=== PATIENT | male | born 1955 | race Caucasian/White ===

== ENCOUNTER → 2016-09-10 | Outpatient (CLI) | payer MEDICARE ==
[~2016-09-10] MED LIST: ACETAMINOPHEN TOP; ADVI200T PO; ALLE180T33 PO; BENA25CA2 PO; CLON1TAB; COLA100C2; COLA100C2 OR; DYMI137S; FLON0.054; GEMF600T PO; HYDR25TA6 OR; LEVOTAB10 PO; LIDO5DIS EX; METH10TA2 PO; MONT10TA2 PO; NEUR600T OR; OXYC10TA12; OXYC15TA50; OXYC30TA84 PO; OXYC40TA12 PO; OXYC40TA19; OXYC40TA19 OR; OXYC5CAP4; OXYC60TA8 PO; OXYC80TA14; POTA20TA2 OR; TOPR100T OR; VICO5TAB; VICO5TAB OR; VICODINES TAB OR; ZYRT10CA PO; allergy shot; azelastine
== END ==
LOC: M PAIN 11:00
PROVIDERS: ATTEND Anesthesiology
DX: Z09 Encounter for follow-up examination after completed treatment for conditions other than malignant neoplasm (principal); G89.29 Other chronic pain; M47.816 Spondylosis without myelopathy or radiculopathy, lumbar region; M47.817 Spondylosis without myelopathy or radiculopathy, lumbosacral region; I10 Essential (primary) hypertension; E78.5 Hyperlipidemia, unspecified; J32.9 Chronic sinusitis, unspecified; Z88.8 Allergy status to other drugs, medicaments and biological substances; J30.89 Other allergic rhinitis; Z79.891 Long term (current) use of opiate analgesic; Z79.899 Other long term (current) drug therapy; F11.20 Opioid dependence, uncomplicated; Z87.891 Personal history of nicotine dependence

== ENCOUNTER → 2016-10-17 | Outpatient (CLI) | payer OTHER, MEDICARE ==
[~2016-10-17] MED LIST changes: -OXYC40TA12 PO; +OXYC40TA13 PO
--- NOTE | 2016-10-26 23:48 | ECWPNPC ---
PATIENT NAME: SUNI DONATO : 1955 GENDER: MALE VISIT DATE: 10/17/2016 DISCHARGE DATE: 10/17/16 1619 VISIT LOCKED DATE TIME: PHYSICIAN: DAIN BECK RESOURCE: DAIN BECK REASON FOR APPOINTMENT 1. BACK PAIN W/C HISTORY OF PRESENT ILLNESS HISTORY OF PRESENT ILLNESS: PAIN THE PATIENT DESCRIBES THE PAIN... 61 YEAR OLD MALE PATIENT WITH HISTORY OF CHRONIC LOW BACK PAIN. PATIENT DESCRIBES THE PAIN ACHING, BURNING, SHARP, STABBING, AND HAVING IT ALL THE TIME WITH A PAIN SCORE OF 8/10. 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 PATIENT WENT TO THE ED THAT DAY AND WAS TOLD HE HAD JUST PULLED MUSCLES IN HIS BACK, PATIENT RETURNED TO WORK FOR TWO YEARS AND THEN HAD A BACK SURGERY. CURRENTLY THE PATIENT IS USING HYDROCODONE, METHADONE AND GABAPENTIN TO AID IN PAIN RELIEF, PATIENT REPORTS THAT THE MEDICATION KEEPS HIM FUNCTIONAL AND MOBILE. MR. DONATO STATES THAT ANY ACTIVITY INCREASES THE PAIN IN HIS LOWER BACK INCLUDING WALKING AND THAT MEDICATION HELPS TO RELIEVE THE PAIN. MR. DONATO HAS RECEIVED INJECTIONS BEFORE AND REPORTS THEM NOT AIDING IN PAIN RELIEF. PATIENT DENIES UNEXPLAINABLE WEIGHT LOSS, FEVER, CHILLS, NEW CHANGES ON HIS URINARY OR BOWEL CONTROL. FALL RISK SCREENING: SCREENING :NO FALLS IN THE PAST YEAR CURRENT MEDICATIONS TAKING GEMFIBROZIL 600 MG TABLET 1 TABLET ORALLY ONCE A DAY TAKING LEVOCETIRIZINE DIHYDROCHLORIDE 5 MG TABLET 1 TABLET IN THE EVENING ORALLY EVERY 4 HOURS NEEDED TAKING GABAPENTIN 600 MG TABLET 1 CAPSULE ORALLY THREE TIMES A DAY TAKING DOCUSATE SODIUM 100 MG CAPSULE 1 CAPSULE NEEDED ORALLY 2TAB AM AND PM TAKING HYDROCHLOROTHIAZIDE 25 MG TABLET 1 TABLET ORALLY ONCE A DAY TAKING METOPROLOL TARTRATE 50 MG TABLET 1 TABLET ORALLY TWICE A DAY TAKING POTASSIUM M 20 1 TAB ORAL DAILY TAKING HYDROCODONE-ACETAMINOPHEN 10-325 MG TABLET 1 ORALLY Q6H PRN MDD4 TAKING METHADONE HCL 10 MG TABLET 2 TABLETS ORALLY EVERY 6 HOURS, MDD=8 MEDICATION LIST REVIEWED AND RECONCILED WITH THE PATIENT PAST MEDICAL HISTORY HYPERTENSION HYPERLIPIDEMIA LOW BACK PAIN RADICULAR TO LEFT LEG SMOKING CHRONIC SINUSITIS ALLERGIES LIPITOR: WEAKNESS, SYNCOPE: SIDE EFFECTS DUST MITES AND RAGWEED: SINUS CONGESTION: ALLERGY SURGICAL HISTORY LUMBAR DISCECTOMY 1997 FAMILY HISTORY NO FAMILY HISTORY DOCUMENTED. SOCIAL HISTORY GENERAL: PAIN CLINIC PFS, CLERGY, PUBLIC HEALTH REFERRALS CLERGY REFERRAL NEEDED?NO WAS THE PROVIDER NOTIFIED OF ANY PERTINENT INFO?NO PFS REFERRAL NEEDED?NO PUBLIC HEALTH REFERRAL NEEDED?NO PATIENT: ____. HOSPITALIZATION/MAJOR DIAGNOSTIC PROCEDURE DISCECTOMY 1997 REVIEW OF SYSTEMS CONSTITUTIONAL: ANY CHANGE IN YOUR MEDICAL CONDITION? NO . CHILLS NO . FEVER NO . INFECTION: DO YOU HAVE NEW INFECTIONS? NO . DO YOU HAVE HISTORY OF MRSA? NO . MUSCULOSKELETAL: ANY NEW PATTERNS OF PAIN OR NUMBNESS? NO . GASTROENTEROLOGY: ANY NEW CHANGE IN BOWEL CONTROL? NO . GENITOURINARY: ANY NEW CHANGE IN BLADDER CONTROL? NO . IS THERE A CHANCE YOU COULD BE ? NO . HEMATOLOGY/LYMPH: DO YOU TAKE ANY BLOOD THINNERS? (FOR EXAMPLE- COUMADIN, PLAVIX, AGGRENOX, PLATEL, PRADAXA, OR XARELTO) NO . WHEN WAS YOUR LAST DOSE? DATE: TIME: . NEUROLOGY: HAVE YOU FALLEN IN THE PAST 6 MONTHS? NO . ANY NEW EXTREMITY NUMBNESS OR WEAKNESS? NO . CARDIOLOGY: DO YOU HAVE A PACEMAKER OR DEFIBRILLATOR? NO . RESPIRATORY: HAVE YOU BEEN SICK IN THE PAST WEEK? NO . FEVER NO . FLU LIKE SYMPTOMS? NO . COUGH NO . INTEGUMENTARY: DO YOU HAVE ANY RASHES OR OPEN SORES? NO . ALLERGIC/IMMUNO: ARE YOU ALLERGIC TO SHELLFISH OR IV DYE? NO . ANY NEW ALLERGIES? NO . PSYCHIATRIC: DO YOU HAVE THOUGHTS OF HURTING YOURSELF OR SOMEONE ELSE? NO . ARE YOU ABUSED, NEGLECTED, OR IN AN UNSAFE ENVIRONMENT? NO . ENDOCRINOLOGY: ARE YOU DIABETIC? NO . OTHER: DO YOU NEED ANY PRESCRIPTIONS? NO . IF YES, PLEASE LIST: ____ . ANY NEW PROBLEMS WITH YOUR MEDICATIONS? NO . WHEN DID YOU LAST EAT? ____ . WHEN DID YOU LAST DRINK? ____ . WHAT DID YOU LAST DRINK? ____ . NAME OF PERSON DRIVING YOU HOME? ____ . DO YOU HAVE ANY OTHER QUESTIONS OR CONCERNS NO . REVIEWED BY: PROVIDER: DAIN BECK MD . VITAL SIGNS WT 130 LBS, HT 64.5 IN, BMI 21.97 INDEX, BP 166/67 MM HG, HR 71 /MIN, RR 16 /MIN, TEMP 98.2 F, OXYGEN SAT % 98, SAFE IN ENV? (Y/N) YES, NA INITIALS [id number], REVIEWED BY: MELINA. EXAMINATION : PATIENT IS ALERT O X 3 AND COOPERATIVE. TENDERNESS IN THE LOWER BACK AND PARASPINAL MUSCLE GROUP. BANDS OF TISSUE, RESTRICTION OF MOVEMENT AND PRESENCE OF TRIGGER POINT IN THE LOWER BACK AREA. PATIENT WALKS IN FLEXED POSITION. PATIENT ABLE TO FLEX THE BACK 85 DEGREES UNABLE TO EXTEND DUE TO THE PAIN. LIMPING FROM LEFT LEG. LEFT LEG IS WEAKER THEN THE RIGHT AT EXTENSION AND FLEXION. MRI DONE ON 05/03/09 OF THE LUMBAR SPINE SHOWS DEGENERATIVE DISC DISEASE AT L4-L5 AND L5-S1, ARTHRITIS, CANAL STENOSIS AND A DISC BULGE AT L5-S1. 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 DONATO'S PAIN MANAGEMENT CASE. AT THIS TIME THE PATIENT WILL START TO REDUCE HIS INTAKE OF METHADONE. PATIENT WILL LIMIT HIMSELF TO 6 TABLETS A DAY INSTEAD OF 8. PATIENT WILL CONTINUE WITH THE SAME ABOUT OF HYDROCODONE DAILY. PATIENT USES BOTH MEDICATIONS FOR SOMATIC PAIN. MR. DONATO DENIES ABUSE OF ANY MEDICATION, DENIES USE OF ILLEGAL SUBSTANCES, AND STATES THAT HE IS ONLY USING THE MEDICATION FOR PAIN MANAGEMENT. URINE TOXICOLOGY REPORT DONE ON 03/13/16 SHOWS CONSISTENT RESULTS. PATIENT WILL PERFORM ANOTHER URINE TOXICOLOGY SAMPLE TODAY. PATIENT REPORTS HAVING INJECTIONS DONE IN THE PAST WITH LITTLE TO NO RELIEF. I WOULD LIKE TO CHECK IS THE PATIENT HAS EVER HAD A RADIOFREQUENCY DONE BEFORE. PATIENT IS A GOOD CANDIDATE AND IS AWARE THAT HE WILL NEED TO HAVE 2 DIAGNOSTIC TESTS PRIOR TO THE RADIOFREQUENCY. PATIENT WILL RETURN TO THE CLINIC IN 6 WEEKS TO FURTHER DISCUSS HIS CASE. INSTRUCTIONS WERE GIVEN, QUESTIONS WERE ANSWERED, PATIENT REPORTS UNDERSTANDING AND AGREES WITH THE PLAN. I, MARGARET MÉNDEZ, DOCUMENTED THE ABOVE INFORMATION ACTING A SCRIBE FOR DR. BECK. I HAVE REVIEWED THE ABOVE DOCUMENT, WRITTEN BY MARGARET SANCHEZ AND I VERIFY THAT IT IS ACCURATE. PROCEDURES PN WORKMANS' COMP OPINION IN YOUR OPINION, WAS THE INCIDENT THAT THE PATIENT DESCRIBED THE COMPETENT MEDICAL CAUSE OF THIS INJURY/ILLNESS? YES ARE THE PATIENT'S COMPLAINTS CONSISTENT WITH HIS/HER HISTORY OF THE INJURY/ILLNESS? YES IS THE PATIENT'S HISTORY OF THE INJURY/ILLNESS CONSISTENT WITH YOUR OBJECTIVE FINDING? YES WHAT IS THE PERCENTAGE OF TEMPORARY IMPAIRMENT? MODERATE TO MARKED = 66.7% IS THE PATIENT WORKING? NO DOCTOR ON SITE: DAIN SHEETS MD PROCEDURE CODES FA211 ESTABILISHED PATIENT [facility] FACILITY CHARGE G8427 DOC MEDS VERIFIED W/PT OR RE G8730 PAIN ASSESS POS TOOL F/U PLAN DOC DISPOSITION & COMMUNICATION FOLLOW UP 6 WEEKS ELECTRONICALLY SIGNED BY DAIN BECK MD ON 10/26/2016 AT 05:24 PM EDT DISCLAIMER : THIS IS A VISIT SUMMARY EXTRACTED FROM THE [employer] CHART. IT IS NOT A COPY OF THE [employer] PROGRESS NOTE. ALISON
== END | disposition home or self-care (01) ==
LOC: M PAIN 14:40
PROVIDERS: ATTEND Anesthesiology
DX: G89.29 Other chronic pain (principal); M96.1 Postlaminectomy syndrome, not elsewhere classified; M47.816 Spondylosis without myelopathy or radiculopathy, lumbar region; M47.817 Spondylosis without myelopathy or radiculopathy, lumbosacral region; I10 Essential (primary) hypertension; E11.9 Type 2 diabetes mellitus without complications; M79.7 Fibromyalgia; D64.9 Anemia, unspecified; M19.90 Unspecified osteoarthritis, unspecified site; L93.0 Discoid lupus erythematosus; M54.2 Cervicalgia; N30.10 Interstitial cystitis (chronic) without hematuria; Z79.899 Other long term (current) drug therapy; Z79.84 Long term (current) use of oral hypoglycemic drugs; Z88.1 Allergy status to other antibiotic agents; Z88.8 Allergy status to other drugs, medicaments and biological substances; L23.1 Allergic contact dermatitis due to adhesives; Z91.040 Latex allergy status

== ENCOUNTER → 2016-12-18 | Outpatient (CLI) | payer OTHER, MEDICARE ==
--- NOTE | 2016-12-30 02:47 | ECWPNPC ---
PATIENT NAME: SUNI DONATO : 1955 GENDER: MALE VISIT DATE: 12/18/2016 DISCHARGE DATE: 12/18/16 1417 VISIT LOCKED DATE TIME: PHYSICIAN: DAIN BECK RESOURCE: DAIN BECK REASON FOR APPOINTMENT 1. MEDS W/C HISTORY OF PRESENT ILLNESS HISTORY OF PRESENT ILLNESS: PAIN THE PATIENT DESCRIBES THE PAIN... 61 YEAR OLD MALE PATIENT WITH HISTORY OF CHRONIC LOW BACK PAIN. PATIENT DESCRIBES THE PAIN ACHING, BURNING, SHARP, STABBING, AND HAVING IT ALL THE TIME WITH A PAIN SCORE OF 6/10 ON TODAY'S VISIT. 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 PATIENT WENT TO THE ED THAT DAY AND WAS TOLD HE HAD JUST PULLED MUSCLES IN HIS BACK, PATIENT RETURNED TO WORK FOR TWO YEARS AND THEN HAD BACK SURGERY. PATIENT REPORTS OF TRYING PHYSICAL THERAPY IN THE PAST AND IT DID NOT WORK TO RELIEVE HIS PAIN. PATIENT STATES THAT HE HAS REDUCED HIS METHADONE INTAKE, IT HAS BEEN DIFFICULT THE PAIN RETURNED BUT HE IS HANDLING IT AT THIS TIME. THE PATIENT IS CURRENT TAKING HYDROCODONE, METHADONE AND GABAPENTIN TO AID IN PAIN RELIEF, PATIENT REPORTS THAT THE MEDICATION KEEPS HIM FUNCTIONAL AND MOBILE. MR. DONATO STATES THAT ANY ACTIVITY INCREASES THE PAIN IN HIS LOWER BACK INCLUDING WALKING AND THAT MEDICATION HELPS TO RELIEVE THE PAIN. MR. DONATO HAS RECEIVED INJECTIONS BEFORE AND REPORTS THEM NOT AIDING IN PAIN RELIEF. PATIENT EXPRESSES AT THIS TIME HE IS NOT INTERESTED IN A SPINAL COLUMN STIMULATOR. PATIENT REPORTS OF RADIATING PAIN TO THE FRONT OF HIS LEFT LEG STOPPING ABOVE THE LEFT KNEE. PATIENT DENIES UNEXPLAINABLE WEIGHT LOSS, FEVER, CHILLS, NEW CHANGES ON HIS URINARY OR BOWEL CONTROL. FALL RISK SCREENING: SCREENING :NO FALLS IN THE PAST YEAR CURRENT MEDICATIONS TAKING LEVOCETIRIZINE DIHYDROCHLORIDE 5 MG TABLET 1 TABLET IN THE EVENING ORALLY EVERY 4 HOURS NEEDED TAKING GABAPENTIN 600 MG TABLET 1 CAPSULE ORALLY THREE TIMES A DAY TAKING DOCUSATE SODIUM 100 MG CAPSULE 1 CAPSULE NEEDED ORALLY 2TAB AM AND PM TAKING POTASSIUM M 20 1 TAB ORAL DAILY TAKING METHADONE HCL 10 MG TABLET 2 TABLETS ORALLY THREE TIMES DAILY FOR PAIN MDD6 TAKING HYDROCODONE-ACETAMINOPHEN 10-325 MG TABLET 1 ORALLY Q6H PRN MDD4 TAKING METOPROLOL TARTRATE 50 MG TABLET 1 TABLET ORALLY TWICE A DAY TAKING HYDROCHLOROTHIAZIDE 25 MG TABLET 1 TABLET ORALLY ONCE A DAY TAKING GEMFIBROZIL 600 MG TABLET 1 TABLET ORALLY ONCE A DAY NOT-TAKING KLOR-CON M20 20 MEQ TABLET EXTENDED RELEASE 1 TABLET ORALLY ONCE A DAY MEDICATION LIST REVIEWED AND RECONCILED WITH THE PATIENT PAST MEDICAL HISTORY HYPERTENSION HYPERLIPIDEMIA LOW BACK PAIN RADICULAR TO LEFT LEG SMOKING CHRONIC SINUSITIS ALLERGIES LIPITOR: WEAKNESS, SYNCOPE: SIDE EFFECTS DUST MITES AND RAGWEED: SINUS CONGESTION: ALLERGY SURGICAL HISTORY LUMBAR DISCECTOMY 1998 FAMILY HISTORY NO FAMILY HISTORY DOCUMENTED. SOCIAL HISTORY GENERAL: PAIN CLINIC PFS, CLERGY, PUBLIC HEALTH REFERRALS CLERGY REFERRAL NEEDED?NO WAS THE PROVIDER NOTIFIED OF ANY PERTINENT INFO?NO PFS REFERRAL NEEDED?NO PUBLIC HEALTH REFERRAL NEEDED?NO PATIENT: ____. HOSPITALIZATION/MAJOR DIAGNOSTIC PROCEDURE DISCECTOMY 1997 REVIEW OF SYSTEMS CONSTITUTIONAL: ANY CHANGE IN YOUR MEDICAL CONDITION? NO . CHILLS NO . FEVER NO . INFECTION: DO YOU HAVE NEW INFECTIONS? NO . DO YOU HAVE HISTORY OF MRSA? NO . MUSCULOSKELETAL: ANY NEW PATTERNS OF PAIN OR NUMBNESS? NO . GASTROENTEROLOGY: ANY NEW CHANGE IN BOWEL CONTROL? NO . GENITOURINARY: ANY NEW CHANGE IN BLADDER CONTROL? NO . IS THERE A CHANCE YOU COULD BE ? NO . HEMATOLOGY/LYMPH: DO YOU TAKE ANY BLOOD THINNERS? (FOR EXAMPLE- COUMADIN, PLAVIX, AGGRENOX, PLATEL, PRADAXA, OR XARELTO) NO . WHEN WAS YOUR LAST DOSE? DATE: TIME: . NEUROLOGY: HAVE YOU FALLEN IN THE PAST 6 MONTHS? NO . ANY NEW EXTREMITY NUMBNESS OR WEAKNESS? NO . CARDIOLOGY: DO YOU HAVE A PACEMAKER OR DEFIBRILLATOR? NO . RESPIRATORY: HAVE YOU BEEN SICK IN THE PAST WEEK? NO . FEVER NO . FLU LIKE SYMPTOMS? NO . COUGH NO . INTEGUMENTARY: DO YOU HAVE ANY RASHES OR OPEN SORES? NO . ALLERGIC/IMMUNO: ARE YOU ALLERGIC TO SHELLFISH OR IV DYE? NO . ANY NEW ALLERGIES? NO . PSYCHIATRIC: DO YOU HAVE THOUGHTS OF HURTING YOURSELF OR SOMEONE ELSE? NO . ARE YOU ABUSED, NEGLECTED, OR IN AN UNSAFE ENVIRONMENT? NO . ENDOCRINOLOGY: ARE YOU DIABETIC? NO . OTHER: DO YOU NEED ANY PRESCRIPTIONS? NO . IF YES, PLEASE LIST: ____ . ANY NEW PROBLEMS WITH YOUR MEDICATIONS? NO . WHEN DID YOU LAST EAT? ____ . WHEN DID YOU LAST DRINK? ____ . WHAT DID YOU LAST DRINK? ____ . NAME OF PERSON DRIVING YOU HOME? ____ . DO YOU HAVE ANY OTHER QUESTIONS OR CONCERNS NO . REVIEWED BY: PROVIDER: DAIN BECK MD . VITAL SIGNS WT 142.6 LBS, HT 64.5 IN, BMI 24.10 INDEX, BP 152/75 MM HG, HR 65 /MIN, RR 16 /MIN, TEMP 98.1 F, OXYGEN SAT % 98%, SAFE IN ENV? (Y/N) Y, NA INITIALS TL [id number], REVIEWED BY: EM. EXAMINATION : PATIENT IS ALERT O X 3 AND COOPERATIVE. THERE IS TENDERNESS IN THE LOW BACK PARASPINAL MUSCLE GROUP. MRI DONE ON 05/03/09 OF THE LUMBAR SPINE SHOWS DEGENERATIVE DISC DISEASE AT L4-L5 AND L5-S1, ARTHRITIS, CANAL STENOSIS AND A DISC BULGE AT L5-S1. ASSESSMENTS POST LAMINECTOMY SYNDROME - M96.1 (PRIMARY) LOW BACK PAIN - M54.5, STABLE SPONDYLOSIS WITHOUT MYELOPATHY OR RADICULOPATHY, LUMBAR REGION - M47.816 SPONDYLOSIS WITHOUT MYELOPATHY OR RADICULOPATHY, LUMBOSACRAL REGION - M47.817 TREATMENT POST LAMINECTOMY SYNDROME REFILL GABAPENTIN TABLET, 600 MG, 1 CAPSULE, ORALLY, THREE TIMES A DAY, 30 DAY(S), 90 CAPSULE, REFILLS 5 REFILL METHADONE HCL TABLET, 10 MG, 2 TABLETS, ORALLY, THREE TIMES DAILY FOR PAIN MDD6, 30 DAY(S), 180, REFILLS 0 REFILL HYDROCODONE-ACETAMINOPHEN TABLET, 10-325 MG, 1, ORALLY, Q6H PRN MDD4, 1 MONTH, 120, REFILLS 0 NOTES: WE DISCUSSED SEVERAL ISSUES WITH MR. DONATO'S PAIN MANAGEMENT CASE. WITH THE PATIENT REDUCING HIS METHADONE INTAKE I WILL HAVE HIM BEGIN TAKING GABAPENTIN. PATIENT IS TAKING GABAPENTIN FOR THE NEUROPATHIC PAIN; METHADONE AND HYDROCODONE FOR THE SOMATIC PAIN. I DISCUSSED THE POSSIBILITIES OF INJECTIONS WITH THE PATIENT, WHICH HE REPLIED HE IS NOT INTERESTED WITH AT THIS TIME. I WILL REVIEW THE PATIENTS EKG IN A FUTURE VISIT. THE PATIENT IS USING METHADONE. PATIENT WILL FOLLOW UP WITH ME IN 3 MONTHS. INSTRUCTIONS WERE GIVEN, QUESTIONS WERE ANSWERED, PATIENT REPORTS UNDERSTANDING AND AGREES WITH THE PLAN. I, DAVID PAPPAS, DOCUMENTED THE ABOVE INFORMATION ACTING A SCRIBE FOR DR. BECK. I HAVE REVIEWED THE ABOVE DOCUMENT, WRITTEN BY DAVID SANCHEZ AND I VERIFY THAT IT IS ACCURATE. PROCEDURES PN WORKMANS' COMP OPINION IN YOUR OPINION, WAS THE INCIDENT THAT THE PATIENT DESCRIBED THE COMPETENT MEDICAL CAUSE OF THIS INJURY/ILLNESS? YES ARE THE PATIENT'S COMPLAINTS CONSISTENT WITH HIS/HER HISTORY OF THE INJURY/ILLNESS? YES IS THE PATIENT'S HISTORY OF THE INJURY/ILLNESS CONSISTENT WITH YOUR OBJECTIVE FINDING? YES WHAT IS THE PERCENTAGE OF TEMPORARY IMPAIRMENT? MODERATE TO MARKED = 66.7% IS THE PATIENT WORKING? NO DOCTOR ON SITE: DAIN SHEETS MD PROCEDURE CODES FA211 ESTABILISHED PATIENT [facility] FACILITY CHARGE G8730 PAIN ASSESS POS TOOL F/U PLAN DOC G8427 DOC MEDS VERIFIED W/PT OR RE DISPOSITION & COMMUNICATION FOLLOW UP 3 MONTHS ELECTRONICALLY SIGNED BY DAIN BECK MD ON 12/29/2016 AT 03:25 PM EDT DISCLAIMER : THIS IS A VISIT SUMMARY EXTRACTED FROM THE [employer] CHART. IT IS NOT A COPY OF THE [employer] PROGRESS NOTE. ALISON
== END | disposition home or self-care (01) ==
LOC: M PAIN 12:40
PROVIDERS: ATTEND Anesthesiology
DX: G89.29 Other chronic pain (principal); M96.1 Postlaminectomy syndrome, not elsewhere classified; M54.5 Low back pain; M47.816 Spondylosis without myelopathy or radiculopathy, lumbar region; M47.817 Spondylosis without myelopathy or radiculopathy, lumbosacral region; I10 Essential (primary) hypertension; E78.5 Hyperlipidemia, unspecified; Z79.899 Other long term (current) drug therapy; Z79.891 Long term (current) use of opiate analgesic; Z88.8 Allergy status to other drugs, medicaments and biological substances; J30.1 Allergic rhinitis due to pollen; F17.210 Nicotine dependence, cigarettes, uncomplicated

== ENCOUNTER → 2016-12-23 | Outpatient (REF) | payer OTHER, MEDICARE ==
[2016-12-23 15:44] LABS: MEAN CORPUSCULAR HEMOGLOBIN 32.9 pg (27.0-33.0); MEAN CORPUSCULAR HGB CONC 33.7 g/dl (32.0-36.5); MEAN CORPUSCULAR VOLUME 97.7 fl (80.0-96.0); RED CELL DISTRIBUTION WIDTH 12.1 % (11.5-14.5)
[2016-12-23 15:57] LABS: ALBUMIN 4.3 GM/DL (3.2-5.2); ALBUMIN/GLOBULIN RATIO 1.39 (1.00-1.93); ALKALINE PHOSPHATASE 66 U/L (45-117); ALT/SGPT 19 U/L (12-78); ANION GAP 10 MEQ/L (8-16); AST/SGOT 30 U/L (15-37); BILIRUBIN,TOTAL 1.1 MG/DL (0.2-1.0); BLOOD UREA NITROGEN 14 MG/DL (7-18); CALCIUM LEVEL 9.2 MG/DL (8.8-10.2); CARBON DIOXIDE LEVEL 29 MEQ/L (21-32); CHLORIDE LEVEL 92 MEQ/L (98-107); CHOLESTEROL LEVEL 235 MG/DL (<200); CREATININE FOR GFR 0.88 MG/DL (0.70-1.30); GLOMERULAR FILTRATION RATE > 60.0 (>49); GLUCOSE, FASTING 118 MG/DL (80-110); POTASSIUM SERUM 4.3 MEQ/L (3.5-5.1); SODIUM LEVEL 131 MEQ/L (136-145); TOTAL PROTEIN 7.4 GM/DL (6.4-8.2); TRIGLYCERIDES LEVEL 102 MG/DL (<150)
== END ==
LOC: M SFHCLACO 10:22
PROVIDERS: ATTEND Physician Assistant
DX: I10 Essential (primary) hypertension (principal); E78.2 Mixed hyperlipidemia

== ENCOUNTER → 2017-03-20 | Outpatient (CLI) | payer OTHER, MEDICARE ==
[~2017-03-20] MED LIST changes: -OXYC40TA13 PO; +OXYC40TA29 PO
--- NOTE | 2017-04-03 02:12 | ECWPNPC ---
PATIENT NAME: SUNI DONATO : 1955 GENDER: MALE VISIT DATE: 03/20/2017 DISCHARGE DATE: 03/20/17 1420 VISIT LOCKED DATE TIME: PHYSICIAN: DAIN BECK RESOURCE: DAIN BECK REASON FOR APPOINTMENT 1. W/C BACK HISTORY OF PRESENT ILLNESS HISTORY OF PRESENT ILLNESS: PAIN THE PATIENT DESCRIBES THE PAIN... 61 YEAR OLD MALE PATIENT WITH HISTORY OF CHRONIC LOW BACK PAIN. PATIENT DESCRIBES THE PAIN ACHING, BURNING, SHARP, STABBING, AND HAVING IT ALL THE TIME WITH A PAIN SCORE OF 6/10 ON TODAY'S VISIT. 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 PATIENT WENT TO THE ED THAT DAY AND WAS TOLD HE HAD JUST PULLED MUSCLES IN HIS BACK, PATIENT RETURNED TO WORK FOR TWO YEARS. IN 1997 THE PATIENT RECEIVED A SURGERY AND STATES THE SURGERY DID NOT AID IN PAIN RELIEF OR MOBILITY AND FUNCTIONALITY AT ALL. PATIENT REPORTS OF TRYING PHYSICAL THERAPY IN THE PAST AND IT DID NOT WORK TO RELIEVE HIS PAIN. PATIENT STATES THAT HE HAS REDUCED HIS METHADONE INTAKE, IT HAS BEEN DIFFICULT THE PAIN RETURNED BUT HE IS HANDLING IT AT THIS TIME. THE PATIENT IS CURRENT TAKING HYDROCODONE, METHADONE AND GABAPENTIN TO AID IN PAIN RELIEF, PATIENT REPORTS THAT THE MEDICATION KEEPS HIM FUNCTIONAL AND MOBILE. MR. DONATO STATES THAT ANY ACTIVITY INCREASES THE PAIN IN HIS LOWER BACK INCLUDING WALKING AND THAT MEDICATION HELPS TO RELIEVE THE PAIN. PATIENT EXPRESSES AT THIS TIME HE IS NOT INTERESTED IN A SPINAL COLUMN STIMULATOR. PATIENT REPORTS OF RADIATING PAIN TO THE FRONT OF HIS LEFT LEG STOPPING ABOVE THE LEFT KNEE. PATIENT DENIES UNEXPLAINABLE WEIGHT LOSS, FEVER, CHILLS, NEW CHANGES ON HIS URINARY OR BOWEL CONTROL. FALL RISK SCREENING: SCREENING :NO FALLS IN THE PAST YEAR CURRENT MEDICATIONS TAKING METOPROLOL TARTRATE 50 MG TABLET 1 TABLET ORALLY TWICE A DAY TAKING HYDROCHLOROTHIAZIDE 25 MG TABLET 1 TABLET ORALLY ONCE A DAY TAKING GEMFIBROZIL 600 MG TABLET 1 TABLET ORALLY ONCE A DAY TAKING POTASSIUM M 20 1 TAB ORAL DAILY TAKING METHADONE HCL 10 MG TABLET 2 TABLETS ORALLY THREE TIMES DAILY FOR PAIN MDD6 TAKING HYDROCODONE-ACETAMINOPHEN 10-325 MG TABLET 1 ORALLY Q6H PRN MDD4 TAKING GABAPENTIN 600 MG TABLET 1 CAPSULE ORALLY THREE TIMES A DAY TAKING DOCUSATE SODIUM 100 MG CAPSULE 1 CAPSULE NEEDED ORALLY 2TAB AM AND PM MEDICATION LIST REVIEWED AND RECONCILED WITH THE PATIENT PAST MEDICAL HISTORY HYPERTENSION HYPERLIPIDEMIA LOW BACK PAIN RADICULAR TO LEFT LEG SMOKING CHRONIC SINUSITIS ALLERGIES LIPITOR: WEAKNESS, SYNCOPE: SIDE EFFECTS DUST MITES AND RAGWEED: SINUS CONGESTION: ALLERGY SURGICAL HISTORY LUMBAR DISCECTOMY 1997 HOSPITALIZATION/MAJOR DIAGNOSTIC PROCEDURE DISCECTOMY 1997 REVIEW OF SYSTEMS REVIEWED BY: PROVIDER: DAIN BECK MD . CONSTITUTIONAL: ANY CHANGE IN YOUR MEDICAL CONDITION? NO . CHILLS NO . FEVER NO . INFECTION: DO YOU HAVE NEW INFECTIONS? NO . DO YOU HAVE HISTORY OF MRSA? NO . MUSCULOSKELETAL: ANY NEW PATTERNS OF PAIN OR NUMBNESS? NO . GASTROENTEROLOGY: ANY NEW CHANGE IN BOWEL CONTROL? NO . GENITOURINARY: ANY NEW CHANGE IN BLADDER CONTROL? NO . IS THERE A CHANCE YOU COULD BE ? NO . HEMATOLOGY/LYMPH: DO YOU TAKE ANY BLOOD THINNERS? (FOR EXAMPLE- COUMADIN, PLAVIX, AGGRENOX, PLATEL, PRADAXA, OR XARELTO) NO . WHEN WAS YOUR LAST DOSE? DATE: TIME: . NEUROLOGY: HAVE YOU FALLEN IN THE PAST 6 MONTHS? NO . ANY NEW EXTREMITY NUMBNESS OR WEAKNESS? NO . CARDIOLOGY: DO YOU HAVE A PACEMAKER OR DEFIBRILLATOR? NO . RESPIRATORY: HAVE YOU BEEN SICK IN THE PAST WEEK? NO . FEVER NO . FLU LIKE SYMPTOMS? NO . COUGH NO . INTEGUMENTARY: DO YOU HAVE ANY RASHES OR OPEN SORES? NO . ALLERGIC/IMMUNO: ARE YOU ALLERGIC TO SHELLFISH OR IV DYE? NO . ANY NEW ALLERGIES? NO . PSYCHIATRIC: DO YOU HAVE THOUGHTS OF HURTING YOURSELF OR SOMEONE ELSE? NO . ARE YOU ABUSED, NEGLECTED, OR IN AN UNSAFE ENVIRONMENT? NO . ENDOCRINOLOGY: ARE YOU DIABETIC? NO . OTHER: DO YOU NEED ANY PRESCRIPTIONS? NO . IF YES, PLEASE LIST: ____ . ANY NEW PROBLEMS WITH YOUR MEDICATIONS? NO . WHEN DID YOU LAST EAT? ____ . WHEN DID YOU LAST DRINK? ____ . WHAT DID YOU LAST DRINK? ____ . NAME OF PERSON DRIVING YOU HOME? ____ . DO YOU HAVE ANY OTHER QUESTIONS OR CONCERNS NO . VITAL SIGNS WT 130 LBS, HT 64.5 IN, BMI 21.97 INDEX, BP 148/84 MM HG, HR 68 /MIN, RR 16 /MIN, TEMP 97.2 F, OXYGEN SAT % 98%, SAFE IN ENV? (Y/N) YES, REVIEWED BY: MELINA. EXAMINATION : PATIENT IS ALERT O X 3 AND COOPERATIVE. THERE IS TENDERNESS IN THE LOW BACK PARASPINAL MUSCLE GROUP. MRI DONE ON 05/03/09 OF THE LUMBAR SPINE SHOWS DEGENERATIVE DISC DISEASE AT L4-L5 AND L5-S1, ARTHRITIS, CANAL STENOSIS AND A DISC BULGE AT L5-S1. ASSESSMENTS POSTLAMINECTOMY SYNDROME, NOT ELSEWHERE CLASSIFIED - M96.1 (PRIMARY) LOW BACK PAIN - M54.5 OTHER CHRONIC PAIN - G89.29 SPONDYLOSIS OF LUMBAR REGION WITHOUT MYELOPATHY OR RADICULOPATHY - M47.816 SPONDYLOSIS OF LUMBOSACRAL REGION WITHOUT MYELOPATHY OR RADICULOPATHY - M47.817 TREATMENT POSTLAMINECTOMY SYNDROME, NOT ELSEWHERE CLASSIFIED REFILL HYDROCODONE-ACETAMINOPHEN TABLET, 10-325 MG, 1, ORALLY, Q6H PRN MDD4, 1 MONTH, 120, REFILLS 0 REFILL GABAPENTIN TABLET, 600 MG, 1 CAPSULE, ORALLY, THREE TIMES A DAY, 30 DAY(S), 90 CAPSULE, REFILLS 2 REFILL DOCUSATE SODIUM CAPSULE, 100 MG, 1 CAPSULE NEEDED, ORALLY, 2TAB AM AND PM, 30 DAY(S), 120, REFILLS 2 NOTES: WE DISCUSSED SEVERAL ISSUES WITH MR. DONATO'S PAIN MANAGEMENT CASE. AT THIS TIME THE PATIENT WILL CONTINUE TO USE GABAPENTIN IT AIDS WITH THE NEUROPATHIC PAIN. PATIENT WILL CONTINUE TO USE HYDROCODONE NEEDED FOR THE SOMATIC PAIN. PATIENT WILL CONTINUE TO WEEN OFF METHADONE. PATIENT WAS GIVEN A REGIME TO AVOID WITHDRAWAL BUT WAS ADVISED TO CALL IF HE STARTED TO HAVE ANY SYMPTOMS. AT THIS TIME THE PATIENT DOES NOT WANT TO MOVE FORWARD WITH ANY INTERVENTIONS. HOWEVER, PATIENT IS A GOOD CANDIDATE FOR A RADIOFREQUENCY PATIENT IS AWARE THAT HE WOULD NEED TO HAVE TWO DIAGNOSTIC TESTS WITH ADEQUATE RESULTS PRIOR TO THE RADIOFREQUENCY. WE ALSO DISCUSSED DCS, PATIENT REPORTS HE DOES NOT WANT OT MOVE FORWARD AT THIS TIME AND WANTS TO PROCEED WITH MEDICATION MANAGEMENT. PATIENT WILL RETURN TO THE CLINIC IN 2 MONTHS. INSTRUCTIONS WERE GIVEN, QUESTIONS WERE ANSWERED, PATIENT REPORTS UNDERSTANDING AND AGREES WITH THE PLAN. I, MARGARET MÉNDEZ, DOCUMENTED THE ABOVE INFORMATION ACTING A SCRIBE FOR DR. BECK. I HAVE REVIEWED THE ABOVE DOCUMENT, WRITTEN BY MARGARET SANCHEZ AND I VERIFY THAT IT IS ACCURATE. PROCEDURE CODES FA211 ESTABILISHED PATIENT [facility] FACILITY CHARGE G8427 DOC MEDS VERIFIED W/PT OR RE G8730 PAIN ASSESS POS TOOL F/U PLAN DOC DISPOSITION & COMMUNICATION FOLLOW UP 2 MONTHS ELECTRONICALLY SIGNED BY DAIN BECK MD ON 03/30/2017 AT 07:24 AM EDT ADDENDUM: 04/01/2017 04:54 PM DAIN BECK > PN WORKMANS' COMP OPINION: IN YOUR OPINION, WAS THE INCIDENT THAT THE PATIENT DESCRIBED THE COMPETENT MEDICAL CAUSE OF THIS INJURY/ILLNESS? YES ARE THE PATIENT'S COMPLAINTS CONSISTENT WITH HIS/HER HISTORY OF THE INJURY/ILLNESS? YES IS THE PATIENT'S HISTORY OF THE INJURY/ILLNESS CONSISTENT WITH YOUR OBJECTIVE FINDING? YES WHAT IS THE PERCENTAGE OF TEMPORARY IMPAIRMENT? MODERATE TO MARKED = 66.7% IS THE PATIENT WORKING? YES DOCTOR ON SITE: DAIN SHEETS MD. DISCLAIMER : THIS IS A VISIT SUMMARY EXTRACTED FROM THE [employer] CHART. IT IS NOT A COPY OF THE [employer] PROGRESS NOTE. ALISON
== END | disposition home or self-care (01) ==
LOC: M PAIN 13:00
PROVIDERS: ATTEND Anesthesiology
DX: G89.29 Other chronic pain (principal); M96.1 Postlaminectomy syndrome, not elsewhere classified; M54.5 Low back pain; M47.816 Spondylosis without myelopathy or radiculopathy, lumbar region; M47.817 Spondylosis without myelopathy or radiculopathy, lumbosacral region; I10 Essential (primary) hypertension; E78.5 Hyperlipidemia, unspecified; J32.4 Chronic pansinusitis; Z79.899 Other long term (current) drug therapy; Z79.891 Long term (current) use of opiate analgesic; Z88.8 Allergy status to other drugs, medicaments and biological substances; J30.1 Allergic rhinitis due to pollen; F17.210 Nicotine dependence, cigarettes, uncomplicated

== ENCOUNTER → 2017-06-30 | Outpatient (REF) | payer MEDICARE, OTHER ==
[2017-06-30 15:01] LABS: ALBUMIN 3.9 GM/DL (3.2-5.2); ALBUMIN/GLOBULIN RATIO 1.11 (1.00-1.93); ALKALINE PHOSPHATASE 65 U/L (45-117); ALT/SGPT 17 U/L (12-78); ANION GAP 8 MEQ/L (8-16); AST/SGOT 22 U/L (7-37); BILIRUBIN,TOTAL 0.5 MG/DL (0.2-1.0); BLOOD UREA NITROGEN 12 MG/DL (7-18); CALCIUM LEVEL 9.1 MG/DL (8.8-10.2); CARBON DIOXIDE LEVEL 29 MEQ/L (21-32); CHLORIDE LEVEL 98 MEQ/L (98-107); CHOLESTEROL LEVEL 222 MG/DL (<200); CREATININE FOR GFR 0.92 MG/DL (0.70-1.30); GLOMERULAR FILTRATION RATE > 60.0 (>49); GLUCOSE, FASTING 104 MG/DL (80-110); POTASSIUM SERUM 4.4 MEQ/L (3.5-5.1); SODIUM LEVEL 135 MEQ/L (136-145); TOTAL PROTEIN 7.4 GM/DL (6.4-8.2); TRIGLYCERIDES LEVEL 128 MG/DL (<150)
== END ==
LOC: M SFHCLACO 08:12
PROVIDERS: ATTEND Physician Assistant
DX: I10 Essential (primary) hypertension (principal); E78.2 Mixed hyperlipidemia

== ENCOUNTER → 2017-07-01 | Outpatient (CLI) | payer MEDICARE, OTHER | LOC: M PAIN 11:00 | DX: G89.29 Other chronic pain (principal); M96.1 Postlaminectomy syndrome, not elsewhere classified; I10 Essential (primary) hypertension; E78.5 Hyperlipidemia, unspecified; Z88.8 Allergy status to other drugs, medicaments and biological substances; Z91.048 Other nonmedicinal substance allergy status; Z79.899 Other long term (current) drug therapy; Z87.891 Personal history of nicotine dependence | CPT/HCPCS: G0463 ==

== ENCOUNTER → 2017-07-02 | Outpatient (REF) | payer MEDICARE | LOC: M SFHCLACO 11:05 | PROVIDERS: ATTEND Physician Assistant | DX: Z11.2 Encounter for screening for other bacterial diseases (principal) ==

== ENCOUNTER → 2017-11-26 | Outpatient (CLI) | payer MEDICARE | LOC: M PAIN 11:30 | DX: M96.1 Postlaminectomy syndrome, not elsewhere classified (principal); G89.29 Other chronic pain; I10 Essential (primary) hypertension; E78.5 Hyperlipidemia, unspecified; J32.9 Chronic sinusitis, unspecified; J30.2 Other seasonal allergic rhinitis; Z79.899 Other long term (current) drug therapy; Z88.8 Allergy status to other drugs, medicaments and biological substances; Z87.891 Personal history of nicotine dependence | CPT/HCPCS: G0463 ==

== ENCOUNTER → 2017-12-22 | Outpatient (REF) | payer MEDICARE ==
[2017-12-22 14:59] LABS: ALBUMIN 4.2 GM/DL (3.2-5.2); ALBUMIN/GLOBULIN RATIO 1.31 (1.00-1.93); ALKALINE PHOSPHATASE 72 U/L (45-117); ALT/SGPT 30 U/L (12-78); ANION GAP 8 MEQ/L (8-16); AST/SGOT 25 U/L (7-37); BILIRUBIN,TOTAL 0.6 MG/DL (0.2-1.0); BLOOD UREA NITROGEN 18 MG/DL (7-18); CALCIUM LEVEL 9.1 MG/DL (8.8-10.2); CARBON DIOXIDE LEVEL 29 MEQ/L (21-32); CHLORIDE LEVEL 97 MEQ/L (98-107); CHOLESTEROL LEVEL 214 MG/DL (<200); CHOLESTEROL RISK RATIO 2.675 (<5); CREATININE FOR GFR 0.92 MG/DL (0.70-1.30); FERRITIN 117 NG/ML (26-388); GLOMERULAR FILTRATION RATE > 60.0 (>49); GLUCOSE, FASTING 106 MG/DL (70-100); HDL CHOLESTEROL 80 MG/DL (>40); IRON (FE) 103 UG/DL (65-175); LDL CHOLESTEROL 110.4 MG/DL (<100); NON-HDL-C 134 MG/DL; PERCENT SATURATION 34.1 % (19.7-50.0); POTASSIUM SERUM 4.8 MEQ/L (3.5-5.1); SODIUM LEVEL 134 MEQ/L (136-145); TOTAL IRON BINDING CAPACITY 302 UG/DL (250-450); TOTAL PROTEIN 7.4 GM/DL (6.4-8.2); TRIGLYCERIDES LEVEL 118 MG/DL (<150)
[2017-12-22 15:01] LABS: HEMATOCRIT 37.2 % (42.0-52.0); HEMOGLOBIN 12.5 g/dl (13.5-17.5); MEAN CORPUSCULAR HEMOGLOBIN 32.2 pg (27.0-33.0); MEAN CORPUSCULAR HGB CONC 33.6 g/dl (32.0-36.5); MEAN CORPUSCULAR VOLUME 95.9 fl (80.0-96.0); PLATELET COUNT, AUTOMATED 246 10^3/uL (150-450); RED BLOOD COUNT 3.88 10^6/uL (4.30-6.10); RED CELL DISTRIBUTION WIDTH 12.1 % (11.5-14.5)
== END ==
LOC: M SFHCLACO 08:44
DX: I10 Essential (primary) hypertension (principal); E78.2 Mixed hyperlipidemia; D64.9 Anemia, unspecified
CPT/HCPCS: 83550

== ENCOUNTER → 2018-01-05 | Outpatient (CLI) | payer OTHER, MEDICARE | LOC: M PAIN 11:30 | DX: M96.1 Postlaminectomy syndrome, not elsewhere classified (principal); I10 Essential (primary) hypertension; E78.5 Hyperlipidemia, unspecified; Z88.8 Allergy status to other drugs, medicaments and biological substances; J30.2 Other seasonal allergic rhinitis; Z79.891 Long term (current) use of opiate analgesic; Z79.899 Other long term (current) drug therapy; Z87.891 Personal history of nicotine dependence | CPT/HCPCS: G0463 ==

== ENCOUNTER → 2018-02-04 | Outpatient (CLI) | payer MEDICARE | LOC: M RAD 07:28 | DX: J32.4 Chronic pansinusitis (principal) | CPT/HCPCS: 70486 ==

== ENCOUNTER → 2018-03-25 | Outpatient (REF) | payer MEDICARE, OTHER ==
[2018-03-25 19:53] LABS: ANION GAP 8 MEQ/L (8-16); BLOOD UREA NITROGEN 10 MG/DL (7-18); CARBON DIOXIDE LEVEL 27 MEQ/L (21-32); CHLORIDE LEVEL 101 MEQ/L (98-107); CREATININE FOR GFR 0.98 MG/DL (0.70-1.30); GLOMERULAR FILTRATION RATE > 60.0 (>49); GLUCOSE, FASTING 104 MG/DL (70-100); POTASSIUM SERUM 4.5 MEQ/L (3.5-5.1); SODIUM LEVEL 136 MEQ/L (136-145)
== END ==
LOC: M SFHCADAM 11:39
DX: I10 Essential (primary) hypertension (principal)
CPT/HCPCS: 80048

== ENCOUNTER → 2018-03-31 | Outpatient (CLI) | payer MEDICARE | LOC: M RAD 13:26 | DX: R51 Headache (principal) | CPT/HCPCS: 70551 ==

== ENCOUNTER → 2018-04-30 | Outpatient (CLI) | payer OTHER | LOC: M PAIN 11:00 | DX: M96.1 Postlaminectomy syndrome, not elsewhere classified (principal); I10 Essential (primary) hypertension; E78.5 Hyperlipidemia, unspecified; J30.2 Other seasonal allergic rhinitis; Z79.891 Long term (current) use of opiate analgesic; Z79.899 Other long term (current) drug therapy; Z88.8 Allergy status to other drugs, medicaments and biological substances; Z87.891 Personal history of nicotine dependence | CPT/HCPCS: G0463 ==

== ENCOUNTER → 2018-06-30 | Outpatient (REF) | payer OTHER ==
[2018-06-30 12:46] LABS: HEMATOCRIT 37.5 % (42.0-52.0); HEMOGLOBIN 12.7 g/dl (13.5-17.5); MEAN CORPUSCULAR HEMOGLOBIN 32.1 pg (27.0-33.0); MEAN CORPUSCULAR HGB CONC 33.9 g/dl (32.0-36.5); MEAN CORPUSCULAR VOLUME 94.7 fl (80.0-96.0); PLATELET COUNT, AUTOMATED 229 10^3/uL (150-450); RED BLOOD COUNT 3.96 10^6/uL (4.30-6.10); WHITE BLOOD COUNT 5.8 10^3/uL (4.0-10.0)
[2018-06-30 13:12] LABS: ALBUMIN 4.3 GM/DL (3.2-5.2); ALT/SGPT 22 U/L (12-78); BILIRUBIN,TOTAL 1.1 MG/DL (0.2-1.0); BLOOD UREA NITROGEN 15 MG/DL (7-18); CALCIUM LEVEL 9.1 MG/DL (8.8-10.2); CARBON DIOXIDE LEVEL 27 MEQ/L (21-32); CHLORIDE LEVEL 94 MEQ/L (98-107); CHOLESTEROL LEVEL 201 MG/DL (<200); CHOLESTEROL RISK RATIO 2.233 (<5); CREATININE FOR GFR 0.93 MG/DL (0.70-1.30); GLOMERULAR FILTRATION RATE > 60.0 (>49); GLUCOSE, FASTING 89 MG/DL (70-100); HDL CHOLESTEROL 90 MG/DL (>40); LDL CHOLESTEROL 100 MG/DL (<100); NON-HDL-C 111 MG/DL; POTASSIUM SERUM 4.5 MEQ/L (3.5-5.1); SODIUM LEVEL 129 MEQ/L (136-145); TOTAL PROTEIN 7.4 GM/DL (6.4-8.2); TRIGLYCERIDES LEVEL 56 MG/DL (<150)
== END ==
LOC: M LABDRWAD 12:22
PROVIDERS: ATTEND Physician Assistant
DX: I10 Essential (primary) hypertension (principal); E78.2 Mixed hyperlipidemia

== ENCOUNTER → 2018-11-10 | Outpatient (CLI) | payer OTHER ==
[~2018-11-10] MED LIST changes: +METO-745 OR; -TOPR100T OR
--- NOTE | 2018-11-28 00:24 | ECWPNPC ---
PATIENT NAME: SUNI DONATO : 1955 GENDER: MALE VISIT DATE: 11/10/2018 DISCHARGE DATE: 11/10/18 1239 VISIT LOCKED DATE TIME: PHYSICIAN: TYLER VILLATORO RESOURCE: TYLER VILLATORO REASON FOR APPOINTMENT 1. MED MGMNT W/C HISTORY OF PRESENT ILLNESS HISTORY OF PRESENT ILLNESS: HERE FOR F/U FOR CHRONIC LBP.HX OF POST LAMINECTOMY PAIN SYNDROME.CHRONIC PAIN MEDICATION USED TO TREAT WORK RELATED INJURY 11-29-1991:HYDROCODONE 10/325 1 QID PRN, AND GABAPENTIN 600MG TID.REPORTS THESE MEDICATIONS ARE HELPFUL AT REDUCING PAIN AND KEEPING HIM FUNCTIONAL.DENIES ADVERSE EFFECTS W MEDICATION.RATING PAIN LEVEL 8/10 VAS. WORSE AREA OF PAIN IS LOW BACK.PAIN IS WORSE IN AM. PAIN THE PATIENT DESCRIBES THE PAIN... THE PATIENT DESCRIBES THE PAIN... THE PATIENT DESCRIBES THE PAIN... THE PATIENT DESCRIBES THE PAIN... THE PATIENT DESCRIBES THE PAIN... THE PATIENT DESCRIBES THE PAIN... THE PATIENT DESCRIBES THE PAIN... THE PATIENT DESCRIBES THE PAIN... THE PATIENT DESCRIBES THE PAIN... FALL RISK SCREENING: SCREENING :NO FALLS REPORTED IN THE LAST YEAR CURRENT MEDICATIONS TAKING MAGNESIUM 500 MG CAPSULE 1 CAPSULE ORALLY ONCE A DAY TAKING HYDROCHLOROTHIAZIDE 25 MG TABLET 1 TABLET ORALLY ONCE A DAY TAKING LOSARTAN POTASSIUM 100 MG TABLET 1 TABLET ORALLY ONCE A DAY TAKING METOPROLOL TARTRATE 50 MG TABLET 1 TABLET ORALLY TWICE A DAY TAKING GEMFIBROZIL 600 MG TABLET 1 TABLET ORALLY ONCE A DAY TAKING POTASSIUM CHLORIDE JOSEPH ER 20 MEQ TABLET EXTENDED RELEASE 1 TABLET WITH FOOD ORALLY ONCE A DAY TAKING GABAPENTIN 600 MG TABLET 2 ORALLY TID TAKING NORCO 10-325 MG TABLET 1 TAB ORALLY Q4-6H PRN MDD6 TAKING VITAMIN D3 5000 UNIT/ML LIQUID 0.1 ML ORALLY ONCE A DAY TAKING MAY USE B-ACTIVE VITAMIN ONCE DAILY TAKING METHYLCOBALAMIN 1 MG TABLET CHEWABLE DIRECTED ORALLY NOT-TAKING CLONIDINE HCL 0.1 MG TABLET 1 TABLET ORALLY ONCE OR TWICE A DAY NEEDED FOR HEADACHE NOT-TAKING OMEPRAZOLE 40 MG CAPSULE DELAYED RELEASE 1 CAPSULE ORALLY ONCE A DAY NEEDED NOT-TAKING LIDOCAINE 0.5 % AEROSOL ONE SPRAY TO EACH NOSTRIL 10 MINUTES AFTER AFRIN EXTERNALLY ONCE A DAY X MAX 3D NOT-TAKING AFRIN NASAL SPRAY 0.05 % SOLUTION SPRAYS N EACH NOSTRIL, PRIOR TO LIDOCAINE NASALLY ONCE A DAY X MAX 3D MEDICATION LIST REVIEWED AND RECONCILED WITH THE PATIENT PAST MEDICAL HISTORY HYPERTENSION HYPERLIPIDEMIA LOW BACK PAIN RADICULAR TO LEFT LEG SMOKING CHRONIC SINUSITIS ASTHMA OSTEOPOROSIS ALLERGIES LIPITOR: WEAKNESS, SYNCOPE - SIDE EFFECTS DUST MITES AND RAGWEED: SINUS CONGESTION - ALLERGY DOXYCYCLINE: HANDS/FEET SWELLED AND BLISTERED - ALLERGY OAK, MAPLE AND BIRCH TREES: SINUS CONGESTION - ALLERGY SURGICAL HISTORY LUMBAR DISCECTOMY 1997 FAMILY HISTORY FATHER: , DIAGNOSED WITH OTHER MOTHER: ALIVE, HYPERTENSION MATERNAL GRAND FATHER: , HEART DISEASE, CANCER 4 BROTHER(S) , 3 SISTER(S) . 2 SON(S) , 1 DAUGHTER(S) - HEALTHY. SISTER - DM. SOCIAL HISTORY GENERAL: TOBACCO USE ARE YOU A:FORMER SMOKER HOW LONG HAS IT BEEN SINCE YOU LAST SMOKED?5-10 YEARS HIV / HEP-C SCREENING HIV TEST OFFERED TO PATIENT:YES DATE OFFERED:06/27/2016 TEST ACCEPTED:NO HEP-C TEST OFFERED TO PATIENT:YES DATE OFFERED:06/27/2016 REASON:PATIENT DECLINED TEST ACCEPTED:NO REASON:PATIENT DECLINED OTHERS AT HOME: SPOUSE. EDUCATION LEVEL OF EDUCATION:NOT FINISHED HIGH SCHOOL DIET: REGULAR. LANGUAGE LANGUAGES SPOKEN:PERUVIAN BMI CARE GOAL FOLLOW-UP BELOW NORMAL BMI FOLLOW-UPDIETARY EDUCATION FOR WEIGHT GAIN RECREATIONAL DRUG USE DRUG USE?NO EXERCISE: TRIES TO BE ACTIVE HE CAN. 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 NEEDED?NO LUNG CANCER SCREENING SMOKING STATUS:FORMER SMOKER IS THE PATIENT BETWEEN THE AGE OF 53 AND 75?YES HAVE YOU QUIT SMOKING WITHIN THE PAST 15 YEARS?YES HAS THE PATIENT EVER BEEN DIAGNOSED WITH LUNG CANCER?NO PAIN CLINIC PFS, CLERGY, PUBLIC HEALTH REFERRALS PFS REFERRAL NEEDED?NO CLERGY REFERRAL NEEDED?NO PUBLIC HEALTH REFERRAL NEEDED?NO WAS THE PROVIDER NOTIFIED OF ANY PERTINENT INFO?NO HAS THE PATIENT BEEN EDUCATED REGARDING HIS/HER PLAN OF CARE?YES HAS THE PATIENT BEEN EDUCATED REGARDING PAIN, THE RISK FOR PAIN, THE IMPORTANCE OF EFFECTIVE PAIN MANAGEMENT, AND THE PAIN ASSESSMENT PROCESS?YES LATEX QUESTIONNAIRE LATEX ALLERGY : HAVE YOU EVER DEVELOPED ANY TYPE OF REACTION AFTER HANDLING LATEX PRODUCTS SUCH RUBBER GLOVES, CONDOMS, DIAPHRAGMS, BALLOONS, SOCKS, OR UNDERWEAR?NO LATEX ALLERGY : HAVE YOU EVER DEVELOPED ANY TYPE OF REACTION DURING OR AFTER DENTAL APPOINTMENT, VAGINAL/RECTAL EXAMINATION, SURGICAL PROCEDURE, OR ANY OTHER EXPOSURE?NO LATEX RISK : HAVE YOU EVER HAD ANY DIFFICULTY BREATHING OR HIVES AFTER EATING OR HANDLING ANY FRUITS, OR VEGETABLES; SUCH KIWI, BANANAS, STONE FRUITS, OR CHESTNUTSNO LATEX RISK : DO YOU HAVE A PREVIOUS PERSONAL HISTORY OF MORE THAN NINE SURGERIES, SPINA BIFIDA, OR REPEATED CATHERTIZATIONS? NO LATEX RISK : ARE YOU FREQUENTLY EXPOSED TO LATEX PRODUCTS IN YOUR OCCUPATION?NO DATE ASKED : 11/10/2018 CAFFEINE CAFFEINE USE?NO ADVANCE DIRECTIVE ADVANCE DIRECTIVE DISCUSSED WITH PATIENT:YES HCP INFORMATION GIVEN TO PATIENT, DECLINED ASSISTANCE IN FILLING OUT FORM. 11/10/18 CONGREGATION [id number] MORMON NO YAZIDISM BELIEFS THAT WOULD IMPACT HEALTH CARE. MARITAL STATUS: . ALCOHOL SCREENING DID YOU HAVE A DRINK CONTAINING ALCOHOL IN THE PAST YEAR?YES HOW OFTEN DID YOU HAVE SIX OR MORE DRINKS ON ONE OCCASION IN THE PAST YEAR?NEVER (0 POINTS) HOW MANY DRINKS DID YOU HAVE ON A TYPICAL DAY WHEN YOU WERE DRINKING IN THE PAST YEAR?1 OR 2 (0 POINTS) HOW OFTEN DID YOU HAVE A DRINK CONTAINING ALCOHOL IN THE PAST YEAR?TWO TO THREE TIMES PER WEEK (3 POINTS) POINTS3 INTERPRETATIONNEGATIVE OCCUPATION: RETIRED. SEXUAL HX HAD SEX IN THE LAST 12 MONTHS (VAGINAL, ORAL, OR ANAL)?YES WITHWOMEN ONLY USE PROTECTION?NO HAVE YOU EVER HAD AN STD?NO REVIEWED WITH PATIENT 06/29/18 1053 JSREVIEWED WITH PT 11/10/18 1145 BV. HOSPITALIZATION/MAJOR DIAGNOSTIC PROCEDURE DISCECTOMY 1997 REVIEW OF SYSTEMS REVIEWED BY: PROVIDER: TYLER KRISHNAMURTHY . CONSTITUTIONAL: ANY CHANGE IN YOUR MEDICAL CONDITION? NO . CHILLS NO . FEVER NO . INFECTION: DO YOU HAVE NEW INFECTIONS? NO . DO YOU HAVE HISTORY OF MRSA? NO . MUSCULOSKELETAL: ANY NEW PATTERNS OF PAIN OR NUMBNESS? NO . GASTROENTEROLOGY: ANY NEW CHANGE IN BOWEL CONTROL? NO . GENITOURINARY: ANY NEW CHANGE IN BLADDER CONTROL? NO . IS THERE A CHANCE YOU COULD BE ? NO . HEMATOLOGY/LYMPH: DO YOU TAKE ANY BLOOD THINNERS? (FOR EXAMPLE- COUMADIN, PLAVIX, AGGRENOX, PLATEL, PRADAXA, OR XARELTO) NO . WHEN WAS YOUR LAST DOSE? DATE: TIME: . NEUROLOGY: HAVE YOU FALLEN IN THE PAST 12 MONTHS? NO . ANY NEW EXTREMITY NUMBNESS OR WEAKNESS? NO . CARDIOLOGY: DO YOU HAVE A PACEMAKER OR DEFIBRILLATOR? NO . RESPIRATORY: HAVE YOU BEEN SICK IN THE PAST WEEK? NO . FEVER NO . FLU LIKE SYMPTOMS? NO . COUGH NO . INTEGUMENTARY: DO YOU HAVE ANY RASHES OR OPEN SORES? NO . ALLERGIC/IMMUNO: ARE YOU ALLERGIC TO IV DYE? NO . ANY NEW ALLERGIES? NO . PSYCHIATRIC: DO YOU HAVE THOUGHTS OF HURTING YOURSELF OR SOMEONE ELSE? NO . ARE YOU ABUSED, NEGLECTED, OR IN AN UNSAFE ENVIRONMENT? NO . ENDOCRINOLOGY: ARE YOU DIABETIC? NO . OTHER: DO YOU NEED ANY PRESCRIPTIONS? NO . IF YES, PLEASE LIST: ____ . ANY NEW PROBLEMS WITH YOUR MEDICATIONS? NO . WHEN DID YOU LAST EAT? ____ . WHEN DID YOU LAST DRINK? ____ . WHAT DID YOU LAST DRINK? ____ . NAME OF PERSON DRIVING YOU HOME? ____ . DO YOU HAVE ANY OTHER QUESTIONS OR CONCERNS NO . VITAL SIGNS WT 154.4 LBS, HT 64.5 IN, BMI 26.09 INDEX, BP 152/73 MM HG, HR 70 /MIN, RR 16 /MIN, TEMP 97.6 F, OXYGEN SAT % 96, SAFE IN ENV? (Y/N) YES, NA INITIALS MP 1113, REVIEWED BY: SEAN. EXAMINATION GENERAL EXAMINATION: LUNGS:LUNG SOUNDS ARE CLEAR. HEART:HEART RATE REGULAR. MUSCULOSKELETAL:*, MUSCLE STRENGTH TESTING 5/5 BILATERAL, PALPATION: POSITIVE FOR PAIN OVER L/S SPINE. POSITIVE FOR PAIN OVER L/S PARSPINALS. DIAGNOSTIC: . ASSESSMENTS POSTLAMINECTOMY SYNDROME, NOT ELSEWHERE CLASSIFIED - M96.1 (PRIMARY) TREATMENT POSTLAMINECTOMY SYNDROME, NOT ELSEWHERE CLASSIFIED CONTINUE GABAPENTIN TABLET, 600 MG, 2, ORALLY, TID CONTINUE NORCO TABLET, 10-325 MG, 1 TAB, ORALLY, Q4-6H PRN MDD6 NOTES: ISTOP REGISTRY REVIEWED AND DEMONSTRATES COMPLLIANCE. (REF #[id number] ) BRINGS IN MEDICATIONS WHICH IS APPROPRIATE FOR WHAT WAS DISPENSED. RECENT URINE TOXICOLOGY REVIEWED. NO UNAUTHORIZED MEDICATIONS. NO ILLICIT SUBSTANCES AND PRESCRIBED MEDICATIONS WERE PRESENT. URINE TOX TODAYW/C FORMAL PILL COUNT/IDENT[facility]ICATION[facility] NARCOTIC AGREEMENT WAS UPDATED REVIEWED AND SIGNED TODAY BY THE PATIENT. SEE ATTACHED DOCUMENT FOR FULL DETAILS; SPECIFIC ISSUES WERE REVIEWED: 1) KEEP PAIN MEDS IN THEIR ORIGINAL BOTTLES AND ANY WEEKLY PLANNERS ARE TO BE BROUGHT TO THE PAIN CENTER AT EVERY VISIT. 2) THE PATIENT IS NOT TO INCREASE DOSING OR TIMING OF THEIR PAIN MEDICATION WITHOUT SPECIFIC DIRECTION OF THEIR PAIN CENTERPROVIDER (NOT ER OR OTHER PROVIDERS). 3) ALL PAIN MEDS ARE TO BE KEPT SECURED, IN A LOCKED BOX. 4) NO PAIN MEDS ARE TO BE SHARED WITH ANY OTHER PERSON FOR ANY REASON. 5) NO PAIN MEDS MAY BE TAKEN FROM ANY FRIENDS OR RELATIVES FOR ANY REASON 6) NO MEDS OR SUBSTANCES WHICH ARE NOT LEGAL ARE TO BE USED- NO MARIJUANA, NO COCAINE, AMPHETAMINES, HEROIN, OR OTHERS ARE EVER TO BE USED. 7)URINE TESTING IS DONE TO ACCOUNT FOR MEDS AND SUBSTANCES BEING TAKEN AND WILL BE DONE RANDOMLY., , RISKS AND BENEFITS OF NARCOTIC/OPIOD MEDICATIONS WERE REVIEWED WITH PATIENT - THIS INCLUDES BUT IS NOT LIMITED TO RISK OF DEPENDANCE/DEVELOPMENT OF ADDICTION, MOOD DISTURBANCE AND DEPRESSION, OSTEOPOROSIS, HORMONAL AND LABIDAL CHANGES, RESPIRATORY DEPRESSION AND . PATIENT IS ADVISED NOT TO DRIVE OR DRINK ALCOHOL WHILE ON THESE MEDICATIONS. PROCEDURES PN WORKMANS' COMP OPINION IN YOUR OPINION, WAS THE INCIDENT THAT THE PATIENT DESCRIBED THE COMPETENT MEDICAL CAUSE OF THIS INJURY/ILLNESS? YES ARE THE PATIENT'S COMPLAINTS CONSISTENT WITH HIS/HER HISTORY OF THE INJURY/ILLNESS? YES IS THE PATIENT'S HISTORY OF THE INJURY/ILLNESS CONSISTENT WITH YOUR OBJECTIVE FINDING? YES WHAT IS THE PERCENTAGE OF TEMPORARY IMPAIRMENT? MODERATE TO MARKED = 66.7% IS THE PATIENT WORKING? NO DOCTOR ON SITE: DAIN SHEETS MD PROCEDURE CODES FA211 ESTABILISHED PATIENT [facility] FACILITY CHARGE DISPOSITION & COMMUNICATION FOLLOW UP 3 MONTHS ELECTRONICALLY SIGNED BY RAGHU WALDEN ON 11/27/2018 AT 12:19 PM EDT DISCLAIMER : THIS IS A VISIT SUMMARY EXTRACTED FROM THE [employer] CHART. IT IS NOT A COPY OF THE [facility] PROGRESS NOTE. ALISON
== END ==
LOC: M PAIN 11:00
PROVIDERS: ATTEND Nurse Practitioner Family
DX: M96.1 Postlaminectomy syndrome, not elsewhere classified (principal); I10 Essential (primary) hypertension; E78.5 Hyperlipidemia, unspecified; J45.909 Unspecified asthma, uncomplicated; M81.0 Age-related osteoporosis without current pathological fracture; Z87.891 Personal history of nicotine dependence; Z88.1 Allergy status to other antibiotic agents; Z88.8 Allergy status to other drugs, medicaments and biological substances; Z91.09 Other allergy status, other than to drugs and biological substances; Z79.891 Long term (current) use of opiate analgesic; Z79.899 Other long term (current) drug therapy

== ENCOUNTER → 2019-01-03 | Outpatient (REF) | payer OTHER ==
[2019-01-03 14:22] LABS: HEMOGLOBIN A1c 5.5 %
== END ==
LOC: M LABDRWAD 12:45
PROVIDERS: ATTEND Nurse Practitioner Family
DX: R73.03 Prediabetes (principal)

== ENCOUNTER → 2019-02-09 | Outpatient (CLI) | payer OTHER ==
--- NOTE | 2019-02-26 00:53 | ECWPNPC ---
PATIENT NAME: SUNI DONATO : 1955 GENDER: MALE VISIT DATE: 02/09/2019 DISCHARGE DATE: 02/09/19 1137 VISIT LOCKED DATE TIME: PHYSICIAN: TYLER VILLATORO RESOURCE: TYLER VILLATORO REASON FOR APPOINTMENT 1. MED MGMNT W/C HISTORY OF PRESENT ILLNESS HISTORY OF PRESENT ILLNESS: HERE FOR F/U FOR CHRONIC LBP.HX OF POST LAMINECTOMY PAIN SYNDROME.CHRONIC PAIN MEDICATION USED TO TREAT WORK RELATED INJURY 11-29-1991:HYDROCODONE 10/325 1 QID PRN, AND GABAPENTIN 600MG TID.REPORTS THESE MEDICATIONS ARE HELPFUL AT REDUCING PAIN AND KEEPING HIM FUNCTIONAL.DENIES ADVERSE EFFECTS W MEDICATION.RATING PAIN LEVEL 7/10 VAS. WORSE AREA OF PAIN IS LOW BACK.PAIN IS WORSE IN AM. PAIN THE PATIENT DESCRIBES THE PAIN... THE PATIENT DESCRIBES THE PAIN... THE PATIENT DESCRIBES THE PAIN... THE PATIENT DESCRIBES THE PAIN... THE PATIENT DESCRIBES THE PAIN... THE PATIENT DESCRIBES THE PAIN... THE PATIENT DESCRIBES THE PAIN... THE PATIENT DESCRIBES THE PAIN... THE PATIENT DESCRIBES THE PAIN... THE PATIENT DESCRIBES THE PAIN... FALL RISK SCREENING: SCREENING :NO FALLS REPORTED IN THE LAST YEAR CURRENT MEDICATIONS TAKING MAGNESIUM 500 MG CAPSULE 1 CAPSULE ORALLY ONCE A DAY TAKING HYDROCHLOROTHIAZIDE 25 MG TABLET 1 TABLET ORALLY ONCE A DAY TAKING LOSARTAN POTASSIUM 100 MG TABLET 1 TABLET ORALLY ONCE A DAY TAKING METOPROLOL TARTRATE 50 MG TABLET 1 TABLET ORALLY TWICE A DAY TAKING GEMFIBROZIL 600 MG TABLET 1 TABLET ORALLY ONCE A DAY TAKING POTASSIUM CHLORIDE JOSEPH ER 20 MEQ TABLET EXTENDED RELEASE 1 TABLET WITH FOOD ORALLY ONCE A DAY TAKING VITAMIN D3 5000 UNIT/ML LIQUID 0.1 ML ORALLY ONCE A DAY TAKING MAY USE B-ACTIVE VITAMIN ONCE DAILY TAKING METHYLCOBALAMIN 1 MG TABLET CHEWABLE DIRECTED ORALLY TAKING GABAPENTIN 600 MG TABLET 2 ORALLY TID TAKING NORCO 10-325 MG TABLET 1 TAB ORALLY Q4-6H PRN MDD6 TAKING AMLODIPINE BESYLATE 5 MG TABLET 1 TABLET ORALLY ONCE A DAY NOT-TAKING CLONIDINE HCL 0.1 MG TABLET 1 TABLET ORALLY ONCE OR TWICE A DAY NEEDED FOR HEADACHE NOT-TAKING OMEPRAZOLE 40 MG CAPSULE DELAYED RELEASE 1 CAPSULE ORALLY ONCE A DAY NEEDED NOT-TAKING LIDOCAINE 0.5 % AEROSOL ONE SPRAY TO EACH NOSTRIL 10 MINUTES AFTER AFRIN EXTERNALLY ONCE A DAY X MAX 3D NOT-TAKING AFRIN NASAL SPRAY 0.05 % SOLUTION SPRAYS N EACH NOSTRIL, PRIOR TO LIDOCAINE NASALLY ONCE A DAY X MAX 3D MEDICATION LIST REVIEWED AND RECONCILED WITH THE PATIENT PAST MEDICAL HISTORY HYPERTENSION HYPERLIPIDEMIA LOW BACK PAIN RADICULAR TO LEFT LEG SMOKING CHRONIC SINUSITIS ASTHMA OSTEOPOROSIS ALLERGIES LIPITOR: WEAKNESS, SYNCOPE - SIDE EFFECTS DUST MITES AND RAGWEED: SINUS CONGESTION - ALLERGY DOXYCYCLINE: HANDS/FEET SWELLED AND BLISTERED - ALLERGY OAK, MAPLE AND BIRCH TREES: SINUS CONGESTION - ALLERGY SURGICAL HISTORY LUMBAR DISCECTOMY 1997 FAMILY HISTORY FATHER: , DIAGNOSED WITH OTHER MOTHER: ALIVE, HYPERTENSION MATERNAL GRAND FATHER: , HEART DISEASE, CANCER 4 BROTHER(S) , 3 SISTER(S) . 2 SON(S) , 1 DAUGHTER(S) - HEALTHY. SISTER - DM. SOCIAL HISTORY GENERAL: TOBACCO USE ARE YOU A:FORMER SMOKER HOW LONG HAS IT BEEN SINCE YOU LAST SMOKED?5-10 YEARS HIV / HEP-C SCREENING HIV TEST OFFERED TO PATIENT:YES DATE OFFERED:06/27/2016 TEST ACCEPTED:NO HEP-C TEST OFFERED TO PATIENT:YES DATE OFFERED:06/27/2016 REASON:PATIENT DECLINED TEST ACCEPTED:NO REASON:PATIENT DECLINED OTHERS AT HOME: SPOUSE. EDUCATION LEVEL OF EDUCATION:NOT FINISHED HIGH SCHOOL DIET: REGULAR. LANGUAGE LANGUAGES SPOKEN:SU[place]ANESE BMI CARE GOAL FOLLOW-UP BELOW NORMAL BMI FOLLOW-UPDIETARY EDUCATION FOR WEIGHT GAIN RECREATIONAL DRUG USE DRUG USE?NO EXERCISE: TRIES TO BE ACTIVE HE CAN. 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?NO LUNG CANCER SCREENING SMOKING STATUS:FORMER SMOKER IS THE PATIENT BETWEEN THE AGE OF 53 AND 75?YES HAVE YOU QUIT SMOKING WITHIN THE PAST 15 YEARS?YES HAS THE PATIENT EVER BEEN DIAGNOSED WITH LUNG CANCER?NO PAIN CLINIC PFS, CLERGY, PUBLIC HEALTH REFERRALS PFS REFERRAL NEEDED?NO CLERGY REFERRAL NEEDED?NO PUBLIC HEALTH REFERRAL NEEDED?NO WAS THE PROVIDER NOTIFIED OF ANY PERTINENT INFO?NO HAS THE PATIENT BEEN EDUCATED REGARDING HIS/HER PLAN OF CARE?YES HAS THE PATIENT BEEN EDUCATED REGARDING PAIN, THE RISK FOR PAIN, THE IMPORTANCE OF EFFECTIVE PAIN MANAGEMENT, AND THE PAIN ASSESSMENT PROCESS?YES LATEX QUESTIONNAIRE LATEX ALLERGY : HAVE YOU EVER DEVELOPED ANY TYPE OF REACTION AFTER HANDLING LATEX PRODUCTS SUCH RUBBER GLOVES, CONDOMS, DIAPHRAGMS, BALLOONS, SOCKS, OR UNDERWEAR?NO LATEX ALLERGY : HAVE YOU EVER DEVELOPED ANY TYPE OF REACTION DURING OR AFTER DENTAL APPOINTMENT, VAGINAL/RECTAL EXAMINATION, SURGICAL PROCEDURE, OR ANY OTHER EXPOSURE?NO DATE ASKED : 11/10/2018 LATEX RISK : HAVE YOU EVER HAD ANY DIFFICULTY BREATHING OR HIVES AFTER EATING OR HANDLING ANY FRUITS, OR VEGETABLES; SUCH KIWI, BANANAS, STONE FRUITS, OR CHESTNUTSNO LATEX RISK : DO YOU HAVE A PREVIOUS PERSONAL HISTORY OF MORE THAN NINE SURGERIES, SPINA BIFIDA, OR REPEATED CATHERIZATIONS? NO LATEX RISK : ARE YOU FREQUENTLY EXPOSED TO LATEX PRODUCTS IN YOUR OCCUPATION?NO CAFFEINE CAFFEINE USE?NO ADVANCE DIRECTIVE ADVANCE DIRECTIVE DISCUSSED WITH PATIENT:YES HCP INFORMATION GIVEN TO PATIENT, DECLINED ASSISTANCE IN FILLING OUT FORM. MORMONISM [id number] SHINTO NO ORIENTAL ORTHODOX BELIEFS THAT WOULD IMPACT HEALTH CARE. MARITAL STATUS: . ALCOHOL SCREENING DID YOU HAVE A DRINK CONTAINING ALCOHOL IN THE PAST YEAR?YES HOW OFTEN DID YOU HAVE SIX OR MORE DRINKS ON ONE OCCASION IN THE PAST YEAR?NEVER (0 POINTS) HOW MANY DRINKS DID YOU HAVE ON A TYPICAL DAY WHEN YOU WERE DRINKING IN THE PAST YEAR?1 OR 2 (0 POINTS) HOW OFTEN DID YOU HAVE A DRINK CONTAINING ALCOHOL IN THE PAST YEAR?TWO TO THREE TIMES PER WEEK (3 POINTS) POINTS3 INTERPRETATIONNEGATIVE OCCUPATION: RETIRED. SEXUAL HX HAD SEX IN THE LAST 12 MONTHS (VAGINAL, ORAL, OR ANAL)?YES WITHWOMEN ONLY USE PROTECTION?NO HAVE YOU EVER HAD AN STD?NO REVIEWED WITH PATIENT 06/29/18 1053 JSREVIEWED WITH PT 11/10/18 1145 BV. HOSPITALIZATION/MAJOR DIAGNOSTIC PROCEDURE DISCECTOMY 1997 REVIEW OF SYSTEMS REVIEWED BY: PROVIDER: TYLER KRISHNAMURTHY . CONSTITUTIONAL: ANY CHANGE IN YOUR MEDICAL CONDITION? NO . CHILLS NO . FEVER NO . INFECTION: DO YOU HAVE NEW INFECTIONS? NO . DO YOU HAVE HISTORY OF MRSA? NO . MUSCULOSKELETAL: ANY NEW PATTERNS OF PAIN OR NUMBNESS? NO . GASTROENTEROLOGY: ANY NEW CHANGE IN BOWEL CONTROL? NO . GENITOURINARY: ANY NEW CHANGE IN BLADDER CONTROL? NO . IS THERE A CHANCE YOU COULD BE ? NO . HEMATOLOGY/LYMPH: DO YOU TAKE ANY BLOOD THINNERS? (FOR EXAMPLE- COUMADIN, PLAVIX, AGGRENOX, PLATEL, PRADAXA, OR XARELTO) NO . WHEN WAS YOUR LAST DOSE? DATE: TIME: . NEUROLOGY: HAVE YOU FALLEN IN THE PAST 12 MONTHS? YES, PRIOR TO LAST VISIT . ANY NEW EXTREMITY NUMBNESS OR WEAKNESS? YES, BILAT LEG PAIN AND FINGERS BILAT TINGLING . CARDIOLOGY: DO YOU HAVE A PACEMAKER OR DEFIBRILLATOR? NO . RESPIRATORY: HAVE YOU BEEN SICK IN THE PAST WEEK? NO . FEVER NO . FLU LIKE SYMPTOMS? NO . COUGH NO . INTEGUMENTARY: DO YOU HAVE ANY RASHES OR OPEN SORES? NO . ALLERGIC/IMMUNO: ARE YOU ALLERGIC TO IV DYE? NO . ANY NEW ALLERGIES? NO . PSYCHIATRIC: DO YOU HAVE THOUGHTS OF HURTING YOURSELF OR SOMEONE ELSE? NO . ARE YOU ABUSED, NEGLECTED, OR IN AN UNSAFE ENVIRONMENT? NO . ENDOCRINOLOGY: ARE YOU DIABETIC? NO . OTHER: DO YOU NEED ANY PRESCRIPTIONS? NO . IF YES, PLEASE LIST: ____ . ANY NEW PROBLEMS WITH YOUR MEDICATIONS? NO . WHEN DID YOU LAST EAT? ____ . WHEN DID YOU LAST DRINK? ____ . WHAT DID YOU LAST DRINK? ____ . NAME OF PERSON DRIVING YOU HOME? ____ . DO YOU HAVE ANY OTHER QUESTIONS OR CONCERNS NO . VITAL SIGNS WT 145.2 LBS, HT 64.5 IN, BMI 24.54 INDEX, BP 152/71 MM HG, HR 67 /MIN, RR 18 /MIN, TEMP 98.0 F, OXYGEN SAT % 100%, NA INITIALS AW 1048. EXAMINATION GENERAL EXAMINATION: LUNGS:LUNG SOUNDS ARE CLEAR. HEART:HEART RATE REGULAR. MUSCULOSKELETAL:*, MUSCLE STRENGTH TESTING 5/5 BILATERAL, PALPATION: POSITIVE FOR PAIN OVER L/S SPINE. POSITIVE FOR PAIN OVER L/S PARSPINALS. DIAGNOSTIC: . ASSESSMENTS POSTLAMINECTOMY SYNDROME, NOT ELSEWHERE CLASSIFIED - M96.1 (PRIMARY) PROCEDURES PN WORKMANS' COMP OPINION IN YOUR OPINION, WAS THE INCIDENT THAT THE PATIENT DESCRIBED THE COMPETENT MEDICAL CAUSE OF THIS INJURY/ILLNESS? YES ARE THE PATIENT'S COMPLAINTS CONSISTENT WITH HIS/HER HISTORY OF THE INJURY/ILLNESS? YES IS THE PATIENT'S HISTORY OF THE INJURY/ILLNESS CONSISTENT WITH YOUR OBJECTIVE FINDING? YES WHAT IS THE PERCENTAGE OF TEMPORARY IMPAIRMENT? MODERATE TO MARKED = 66.7% IS THE PATIENT WORKING? NO DOCTOR ON SITE: DAIN SHEETS MD PROCEDURE CODES FA211 ESTABILISHED PATIENT [facility] FACILITY CHARGE DISPOSITION & COMMUNICATION FOLLOW UP 3 MONTHS (REASON: W/C MED MGMNT) ELECTRONICALLY SIGNED BY RAGHU WALDEN ON 02/25/2019 AT 03:21 PM EDT DISCLAIMER : THIS IS A VISIT SUMMARY EXTRACTED FROM THE [employer] CHART. IT IS NOT A COPY OF THE [employer] PROGRESS NOTE. JULISSAD
== END ==
LOC: M PAIN 10:15
PROVIDERS: ATTEND Nurse Practitioner Family
DX: M96.1 Postlaminectomy syndrome, not elsewhere classified (principal); I10 Essential (primary) hypertension; E78.5 Hyperlipidemia, unspecified; J45.909 Unspecified asthma, uncomplicated; M81.0 Age-related osteoporosis without current pathological fracture; Z87.891 Personal history of nicotine dependence; Z88.1 Allergy status to other antibiotic agents; Z88.8 Allergy status to other drugs, medicaments and biological substances; Z91.09 Other allergy status, other than to drugs and biological substances; Z79.891 Long term (current) use of opiate analgesic; Z79.899 Other long term (current) drug therapy

== ENCOUNTER → 2019-03-17 | Outpatient (REF) | payer OTHER ==
[2019-03-17 13:16] LABS: BASO # 0.1 10^3/uL (0.0-0.2); BASO % 0.9 % (0.0-1.0); EOS # 0.1 10^3/uL (0.0-0.5); EOS % 1.5 % (0.0-3.0); HEMATOCRIT 36.2 % (42.0-52.0); HEMOGLOBIN 12.6 g/dl (13.5-17.5); LYMPH % 16.8 % (24.0-44.0); MEAN CORPUSCULAR HEMOGLOBIN 33.2 pg (27.0-33.0); MEAN CORPUSCULAR HGB CONC 34.8 g/dl (32.0-36.5); MEAN CORPUSCULAR VOLUME 95.5 fl (80.0-96.0); MONO # 0.8 10^3/uL (0.0-0.8); MONO % 12.9 % (0.0-5.0); NEUTROPHILS # 3.9 10^3/uL (1.5-8.5); NEUTROPHILS % 67.6 % (36.0-66.0); PLATELET COUNT, AUTOMATED 247 10^3/uL (150-450); RED BLOOD COUNT 3.79 10^6/uL (4.30-6.10); WHITE BLOOD COUNT 5.8 10^3/uL (4.0-10.0)
[2019-03-17 13:43] LABS: ALBUMIN 4.4 GM/DL (3.2-5.2); ALT/SGPT 39 U/L (12-78); BILIRUBIN,TOTAL 0.6 MG/DL (0.2-1.0); BLOOD UREA NITROGEN 10 MG/DL (7-18); CALCIUM LEVEL 9.7 MG/DL (8.8-10.2); CARBON DIOXIDE LEVEL 28 MEQ/L (21-32); CHLORIDE LEVEL 96 MEQ/L (98-107); CREATININE FOR GFR 0.78 MG/DL (0.70-1.30); GLOMERULAR FILTRATION RATE > 60.0 (>49); GLUCOSE, FASTING 91 MG/DL (70-100); POTASSIUM SERUM 4.7 MEQ/L (3.5-5.1); SODIUM LEVEL 131 MEQ/L (136-145); TOTAL PROTEIN 7.8 GM/DL (6.4-8.2)
[2019-03-17 14:30] LABS: HEMOGLOBIN A1c 5.2 %
== END ==
LOC: M LABDRWAD 12:26
PROVIDERS: ATTEND Nurse Practitioner Family
DX: D64.9 Anemia, unspecified (principal); R73.03 Prediabetes

== ENCOUNTER → 2019-03-29 | Outpatient (CLI) | payer MEDICARE ==
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
== END ==
LOC: M PAIN 13:15
PROVIDERS: ATTEND Nurse Practitioner Family
DX: M48.02 Spinal stenosis, cervical region (principal); M47.812 Spondylosis without myelopathy or radiculopathy, cervical region; G89.29 Other chronic pain; I10 Essential (primary) hypertension; E78.5 Hyperlipidemia, unspecified; J45.909 Unspecified asthma, uncomplicated; M81.0 Age-related osteoporosis without current pathological fracture; Z87.891 Personal history of nicotine dependence; Z88.1 Allergy status to other antibiotic agents; Z88.8 Allergy status to other drugs, medicaments and biological substances; Z79.891 Long term (current) use of opiate analgesic; Z79.899 Other long term (current) drug therapy

== ENCOUNTER → 2019-04-13 | Outpatient (CLI) | payer OTHER | LOC: M PAIN 11:15 | PROVIDERS: ATTEND Nurse Practitioner Family | DX: M96.1 Postlaminectomy syndrome, not elsewhere classified (principal); I10 Essential (primary) hypertension; E78.5 Hyperlipidemia, unspecified; M54.16 Radiculopathy, lumbar region; J45.909 Unspecified asthma, uncomplicated; M81.0 Age-related osteoporosis without current pathological fracture; Z87.891 Personal history of nicotine dependence; Z79.899 Other long term (current) drug therapy; Z88.1 Allergy status to other antibiotic agents; Z88.8 Allergy status to other drugs, medicaments and biological substances; Z91.048 Other nonmedicinal substance allergy status; Z79.891 Long term (current) use of opiate analgesic ==

== ENCOUNTER → 2019-05-03 | Outpatient (CLI) | payer MEDICARE ==
[~2019-05-03] MED LIST changes: +BUPIVACAINE HCL 0.25% 30 ML VIAL As Ordered ONE; +ISOVUE-M 300 61% 15ML VIAL (Q9967) As Ordered ONE; +LIDOCAINE 1% SDV INJ 30 ML VIAL As Ordered ONE; +TRIAMCINOLONE ACETONIDE SUSP 40 MG/ML VIAL (J3301) As Ordered ONE
--- NOTE | 2019-05-03 16:46 | REP ---
C-ARM VIEWS CERVICAL SPINE: Two C-Arm views cervical spine performed. Clinical history: Pain. Injection performed bilaterally of the cervical facets by Dr. Diaz. [place] are seen along the bilateral cervical facet joints and a small amount of contrast is injected. 24 seconds of fluoroscopy time utilized. Electronically Signed by Carlos Paul MD 05/04/2019 12:31 P
--- NOTE | 2019-05-07 23:09 | ECWPNPC ---
PATIENT NAME: SUNI DONATO : 1955 GENDER: MALE VISIT DATE: 05/03/2019 DISCHARGE DATE: 05/03/19 1520 VISIT LOCKED DATE TIME: PHYSICIAN: DAIN BECK MD RESOURCE: DAIN BECK MD REASON FOR APPOINTMENT 1. NON COMP C4/5-C5/6 CFBT HISTORY OF PRESENT ILLNESS HISTORY OF PRESENT ILLNESS: PAIN THE PATIENT DESCRIBES THE PAIN... FALL RISK SCREENING: SCREENING :NO FALLS REPORTED IN THE LAST YEAR CURRENT MEDICATIONS TAKING MAGNESIUM 500 MG CAPSULE 1 CAPSULE ORALLY ONCE A DAY TAKING HYDROCHLOROTHIAZIDE 25 MG TABLET 1 TABLET ORALLY ONCE A DAY TAKING LOSARTAN POTASSIUM 100 MG TABLET 1 TABLET ORALLY ONCE A DAY TAKING METOPROLOL TARTRATE 50 MG TABLET 1 TABLET ORALLY TWICE A DAY TAKING GEMFIBROZIL 600 MG TABLET 1 TABLET ORALLY ONCE A DAY TAKING POTASSIUM CHLORIDE JOSEPH ER 20 MEQ TABLET EXTENDED RELEASE 1 TABLET WITH FOOD ORALLY ONCE A DAY TAKING VITAMIN D3 5000 UNIT/ML LIQUID 0.1 ML ORALLY ONCE A DAY TAKING MAY USE B-ACTIVE VITAMIN ONCE DAILY TAKING AMLODIPINE BESYLATE 10 MG TABLET 1 TABLET ORALLY ONCE A DAY TAKING ZONISAMIDE 100 MG CAPSULE 1 CAPSULE ORALLY ONCE A DAY TAKING NORCO 10-325 MG TABLET 1 TAB ORALLY Q4-6H PRN MDD6, NOTES: 05/03/19 0600 TAKING GABAPENTIN 300 MG CAPSULE 2 ORALLY TID, NOTES: 05/03/19 0600 NOT-TAKING METHYLCOBALAMIN 1 MG TABLET CHEWABLE DIRECTED ORALLY NOT-TAKING CLONIDINE HCL 0.1 MG TABLET 1 TABLET ORALLY ONCE OR TWICE A DAY NEEDED FOR HEADACHE NOT-TAKING OMEPRAZOLE 40 MG CAPSULE DELAYED RELEASE 1 CAPSULE ORALLY ONCE A DAY NEEDED NOT-TAKING LIDOCAINE 0.5 % AEROSOL ONE SPRAY TO EACH NOSTRIL 10 MINUTES AFTER AFRIN EXTERNALLY ONCE A DAY X MAX 3D NOT-TAKING AFRIN NASAL SPRAY 0.05 % SOLUTION SPRAYS N EACH NOSTRIL, PRIOR TO LIDOCAINE NASALLY ONCE A DAY X MAX 3D MEDICATION LIST REVIEWED AND RECONCILED WITH THE PATIENT PAST MEDICAL HISTORY HYPERTENSION HYPERLIPIDEMIA LOW BACK PAIN RADICULAR TO LEFT LEG SMOKING CHRONIC SINUSITIS ASTHMA OSTEOPOROSIS ALLERGIES LIPITOR: WEAKNESS, SYNCOPE - SIDE EFFECTS DUST MITES AND RAGWEED: SINUS CONGESTION - ALLERGY DOXYCYCLINE: HANDS/FEET SWELLED AND BLISTERED - ALLERGY OAK, MAPLE AND BIRCH TREES: SINUS CONGESTION - ALLERGY SURGICAL HISTORY LUMBAR DISCECTOMY 1997 FAMILY HISTORY FATHER: , DIAGNOSED WITH OTHER SPECIFIED CONDITIONS INFLUENCING HEALTH STATUS MOTHER: ALIVE, HYPERTENSION MATERNAL GRAND FATHER: , UNSPECIFIED HEART DISEASE, OTHER MALIGNANT NEOPLASM OF UNSPECIFIED SITE 4 BROTHER(S) , 3 SISTER(S) . 2 SON(S) , 1 DAUGHTER(S) - HEALTHY. SISTER - DM. SOCIAL HISTORY GENERAL: TOBACCO USE ARE YOU A:FORMER SMOKER HOW LONG HAS IT BEEN SINCE YOU LAST SMOKED?> 10 YEARS HIV / HEP-C SCREENING HIV TEST OFFERED TO PATIENT:YES DATE OFFERED:06/27/2016 TEST ACCEPTED:NO HEP-C TEST OFFERED TO PATIENT:YES DATE OFFERED:06/27/2016 REASON:PATIENT DECLINED TEST ACCEPTED:NO REASON:PATIENT DECLINED OTHERS AT HOME: SPOUSE. EDUCATION LEVEL OF EDUCATION:NOT FINISHED HIGH SCHOOL DIET: REGULAR. LANGUAGE LANGUAGES SPOKEN:[place] BMI CARE GOAL FOLLOW-UP BELOW NORMAL BMI FOLLOW-UPDIETARY EDUCATION FOR WEIGHT GAIN RECREATIONAL DRUG USE DRUG USE?NO EXERCISE: TRIES TO BE ACTIVE HE CAN. LEARNING BARRIERS / SPECIAL NEEDS CHANGE FROM LAST VISIT?NO BARRIERS TO LEARNING?NO HEARING IMPAIRED?NO VISION IMPAIRED?YES COGNITIVELY IMPAIRED?NO :CORRECTIVE LENSES READINESS TO LEARN?YES LEARNING PREFERENCES?NO LEARNING CAPABILITIES PRESENT?YES EMOTIONAL BARRIERS?NO SPECIAL DEVICES?YES :CANE CERTIFIED NEURODIAGNOSTIC TECHNOLOGIST NEEDED?NO LUNG CANCER SCREENING SMOKING STATUS:FORMER SMOKER IS THE PATIENT BETWEEN THE AGE OF 53 AND 75?YES HAVE YOU QUIT SMOKING WITHIN THE PAST 15 YEARS?YES HAS THE PATIENT EVER BEEN DIAGNOSED WITH LUNG CANCER?NO PAIN CLINIC PFS, CLERGY, PUBLIC HEALTH REFERRALS PFS REFERRAL NEEDED?NO CLERGY REFERRAL NEEDED?NO PUBLIC HEALTH REFERRAL NEEDED?NO WAS THE PROVIDER NOTIFIED OF ANY PERTINENT INFO?NO HAS THE PATIENT BEEN EDUCATED REGARDING HIS/HER PLAN OF CARE?YES HAS THE PATIENT BEEN EDUCATED REGARDING PAIN, THE RISK FOR PAIN, THE IMPORTANCE OF EFFECTIVE PAIN MANAGEMENT, AND THE PAIN ASSESSMENT PROCESS?YES LATEX QUESTIONNAIRE LATEX ALLERGY : HAVE YOU EVER DEVELOPED ANY TYPE OF REACTION AFTER HANDLING LATEX PRODUCTS SUCH RUBBER GLOVES, CONDOMS, DIAPHRAGMS, BALLOONS, SOCKS, OR UNDERWEAR?NO LATEX ALLERGY : HAVE YOU EVER DEVELOPED ANY TYPE OF REACTION DURING OR AFTER DENTAL APPOINTMENT, VAGINAL/RECTAL EXAMINATION, SURGICAL PROCEDURE, OR ANY OTHER EXPOSURE?NO DATE ASKED : 11/10/2018 LATEX RISK : HAVE YOU EVER HAD ANY DIFFICULTY BREATHING OR HIVES AFTER EATING OR HANDLING ANY FRUITS, OR VEGETABLES; SUCH KIWI, BANANAS, STONE FRUITS, OR CHESTNUTSNO LATEX RISK : DO YOU HAVE A PREVIOUS PERSONAL HISTORY OF MORE THAN NINE SURGERIES, SPINA BIFIDA, OR REPEATED CATHERIZATIONS? NO LATEX RISK : ARE YOU FREQUENTLY EXPOSED TO LATEX PRODUCTS IN YOUR OCCUPATION?NO CAFFEINE CAFFEINE USE?NO ADVANCE DIRECTIVE ADVANCE DIRECTIVE DISCUSSED WITH PATIENT:YES HCP INFORMATION GIVEN TO PATIENT, DECLINED ASSISTANCE IN FILLING OUT FORM. [id number] NO CHEONDOISM BELIEFS THAT WOULD IMPACT HEALTH CARE. MARITAL STATUS: . ALCOHOL SCREENING DID YOU HAVE A DRINK CONTAINING ALCOHOL IN THE PAST YEAR?YES HOW OFTEN DID YOU HAVE SIX OR MORE DRINKS ON ONE OCCASION IN THE PAST YEAR?NEVER (0 POINTS) HOW MANY DRINKS DID YOU HAVE ON A TYPICAL DAY WHEN YOU WERE DRINKING IN THE PAST YEAR?1 OR 2 (0 POINTS) HOW OFTEN DID YOU HAVE A DRINK CONTAINING ALCOHOL IN THE PAST YEAR?TWO TO THREE TIMES PER WEEK (3 POINTS) POINTS3 INTERPRETATIONNEGATIVE OCCUPATION: RETIRED. SEXUAL HX HAD SEX IN THE LAST 12 MONTHS (VAGINAL, ORAL, OR ANAL)?YES WITHWOMEN ONLY USE PROTECTION?NO HAVE YOU EVER HAD AN STD?NO REVIEWED WITH PATIENT 06/29/18 1053 JSREVIEWED WITH PT 11/10/18 1145 BVREVIEEWED WITH PT 03/29/19 1308 NLJREVIEWED WITH PATIENT 04/13/19 1203 NLJREVIEWED WITH PATIENT 05/03/19 1335 LAS. HOSPITALIZATION/MAJOR DIAGNOSTIC PROCEDURE DISCECTOMY 1997 REVIEW OF SYSTEMS REVIEWED BY: PROVIDER: . CONSTITUTIONAL: ANY CHANGE IN YOUR MEDICAL CONDITION? NO . CHILLS NO . FEVER NO . INFECTION: DO YOU HAVE NEW INFECTIONS? NO . DO YOU HAVE HISTORY OF MRSA? NO . MUSCULOSKELETAL: ANY NEW PATTERNS OF PAIN OR NUMBNESS? NO . GASTROENTEROLOGY: ANY NEW CHANGE IN BOWEL CONTROL? NO . GENITOURINARY: ANY NEW CHANGE IN BLADDER CONTROL? NO . IS THERE A CHANCE YOU COULD BE ? NO . HEMATOLOGY/LYMPH: DO YOU TAKE ANY BLOOD THINNERS? (FOR EXAMPLE- COUMADIN, PLAVIX, AGGRENOX, PLATEL, PRADAXA, OR XARELTO) NO . WHEN WAS YOUR LAST DOSE? DATE: TIME: . NEUROLOGY: HAVE YOU FALLEN IN THE PAST 12 MONTHS? NO . ANY NEW EXTREMITY NUMBNESS OR WEAKNESS? NO . CARDIOLOGY: DO YOU HAVE A PACEMAKER OR DEFIBRILLATOR? NO . RESPIRATORY: HAVE YOU BEEN SICK IN THE PAST WEEK? NO . FEVER NO . FLU LIKE SYMPTOMS? NO . COUGH NO . INTEGUMENTARY: DO YOU HAVE ANY RASHES OR OPEN SORES? NO . ALLERGIC/IMMUNO: ARE YOU ALLERGIC TO IV DYE? NO . ANY NEW ALLERGIES? NO . PSYCHIATRIC: DO YOU HAVE THOUGHTS OF HURTING YOURSELF OR SOMEONE ELSE? NO . ARE YOU ABUSED, NEGLECTED, OR IN AN UNSAFE ENVIRONMENT? NO . ENDOCRINOLOGY: ARE YOU DIABETIC? NO . OTHER: DO YOU NEED ANY PRESCRIPTIONS? NO . IF YES, PLEASE LIST: ____ . ANY NEW PROBLEMS WITH YOUR MEDICATIONS? NO . WHEN DID YOU LAST EAT? ____05/02/19 2400 . WHEN DID YOU LAST DRINK? ____05/03/19 0600 . WHAT DID YOU LAST DRINK? ____WATER . NAME OF PERSON DRIVING YOU HOME? ____BROTHER LC . DO YOU HAVE ANY OTHER QUESTIONS OR CONCERNS NO . VITAL SIGNS WT 145.2 LBS, HT 64.5 IN, BMI 24.54 INDEX, BP 148/71 MM HG, HR 70 /MIN, RR 18 /MIN, TEMP 98.1 F, OXYGEN SAT % 98%, SAFE IN ENV? (Y/N) YES, NA INITIALS AW 1320, REVIEWED BY: MELINA. ASSESSMENTS SPONDYLOSIS WITHOUT MYELOPATHY OR RADICULOPATHY, CERVICAL REGION - M47.812 (PRIMARY) PROCEDURES PN CERVICAL FACET BLOCK LOW BILATERAL CERVICAL PRE PROCEDURE DIAGNOSIS CERVICAL SPONDYLOSIS POST PROCEDURE DIAGNOSIS CERVICAL SPONDYLOSIS PROCEDURE BILATERAL C4-C5 AND C5-C6 CERVICAL THERAPEUTIC FACET BLOCK SURGEON DR. DAIN BECK C D AREA SUPERVISOR NONE ANESTHESIA LOCAL PRE PROCEDURE NOTE THE PATIENT HAS HISTORY OF CHRONIC CERVICAL PAIN. I EVALUATED THE PATIENT AND REVIEWED THE CHART. I WENT OVER THE RISKS, ALTERNATIVES, AND BENEFITS ASSOCIATED WITH THIS PROCEDURE. THE PATIENT WOULD LIKE TO PROCEED AND GIVES CONSENT TO PERFORM THE PROCEDURE. THE PATIENT DENIES UNEXPLAINABLE WEIGHT LOSS, FEVER, CHILLS, OR NEW CHANGES IN URINARY OR BOWEL CONTROL. DESCRIPTION OF PROCEDURE THE PATIENT WAS BROUGHT TO THE PROCEDURE ROOM AND PLACED IN THE PRONE POSITION. THE CERVICOTHORACIC AREA WAS CLEANED WITH CHLORAPREP SOLUTION AND DRAPED ASEPTICALLY. THE PROCEDURE WAS DONE UNDER STERILE CONDITIONS. I CHECKED LATERALITY AND THE LEVEL WHERE THE PROCEDURE WAS GOING TO BE PERFORMED WITH THE PATIENT AND THE SUPPORTING STAFF AT THE MOMENT OF THE TIME OUT IN THE PROCEDURE ROOM. UNDER FLUOROSCOPIC GUIDANCE, TARGET POINT WAS SELECTED AT THE RIGHT AND LEFT C4-C5 AND RIGHT AND LEFT C5-C6 CERVICAL FACET JOINT. TARGET POINTS WERE SELECTED AFTER LATERAL ROTATION AND TILT OF THE MAGNIFIER OF THE C-ARM. LIDOCAINE 0.5% WAS USED TO NUMB THE SKIN AND THE SUBCUTANEOUS TISSUE BELOW IT. SPINAL NEEDLES, 22-GAUGE, WERE ADVANCED UNDER FLUOROSCOPIC GUIDANCE AND FOLLOWING PATIENT FEEDBACK UNTIL THE TARGETS WERE TOUCHED. THE POSITION OF THE NEEDLES WAS VERIFIED WITH AP AND LATERAL VIEWS. AFTER PROPER POSITION OF THE NEEDLES WAS ACHIEVED, ISOVUE M DYE 30, 0.1 ML WAS INJECTED SHOWING SPREAD OF THE DYE. THEN A SOLUTION OF 0.9 ML OF BUPIVACAINE 0.125% AND KENALOG 10 MG WAS INJECTED AT EACH SITE. THERE WAS NO EVIDENCE OF BLOOD, PARESTHESIA OR CEREBROSPINAL FLUID DURING THE PROCEDURE. THE PATIENT WAS SENT TO THE RECOVERY ROOM. THE PATIENT WAS MOVING THE EXTREMITIES AND DOING WELL. THERE WAS NO COMPLICATION DURING THE PROCEDURE. FLUOROSCOPY TIME WAS 24 SECONDS POST PROCEDURE NOTE THE PATIENT WILL BE SEEN IN A FOLLOW UP IN THE NEXT FEW WEEKS. INSTRUCTIONS WERE GIVEN, QUESTIONS WERE ANSWERED, AND THE PATIENT EXPRESSED UNDERSTANDING AND AGREES WITH THE PLAN. I, ROSEY BARBER, DOCUMENTED THE ABOVE INFORMATION ACTING A SCRIBE FOR DR. BECK. I HAVE REVIEWED THE ABOVE DOCUMENT, WRITTEN BY ROSEY SANCHEZ AND I VERIFY THAT IT IS ACCURATE. DIAGNOSTIC IMAGING [facility] FACET BLOCK (PAIN)[id number] PROCEDURE CODES 72095 INJ PARAVERT F JNT C/T 1 LEV, MODIFIERS: 50 [id number] INJ PARAVERT F JNT C/T 2 LEV, MODIFIERS: 50 [id number] RADXPS IN END [id number] PXD DISPOSITION & COMMUNICATION FOLLOW UP 3 WEEKS ELECTRONICALLY SIGNED BY DAIN BECK MD, MD ON 05/07/2019 AT 07:46 AM EDT DISCLAIMER : THIS IS A VISIT SUMMARY EXTRACTED FROM THE [facility] CHART. IT IS NOT A COPY OF THE [facility] PROGRESS NOTE. MTDD
== END ==
LOC: M PAIN 13:15
PROVIDERS: ATTEND Anesthesiology
DX: M47.812 Spondylosis without myelopathy or radiculopathy, cervical region (principal); I10 Essential (primary) hypertension; E78.5 Hyperlipidemia, unspecified; M54.42 Lumbago with sciatica, left side; J45.909 Unspecified asthma, uncomplicated; J32.9 Chronic sinusitis, unspecified; M81.0 Age-related osteoporosis without current pathological fracture; Z79.891 Long term (current) use of opiate analgesic; Z79.899 Other long term (current) drug therapy; Z88.1 Allergy status to other antibiotic agents; Z88.8 Allergy status to other drugs, medicaments and biological substances; Z91.048 Other nonmedicinal substance allergy status
CPT/HCPCS: 64490; 64491; J3301; Q9967

== ENCOUNTER → 2019-05-11 | Outpatient (CLI) | payer MEDICARE ==
[~2019-05-11] MED LIST changes: -BUPIVACAINE HCL 0.25% 30 ML VIAL As Ordered ONE; -ISOVUE-M 300 61% 15ML VIAL (Q9967) As Ordered ONE; -LIDOCAINE 1% SDV INJ 30 ML VIAL As Ordered ONE; -TRIAMCINOLONE ACETONIDE SUSP 40 MG/ML VIAL (J3301) As Ordered ONE
[2019-05-11 12:52] LABS: EOS % 0.1 % (0.0-3.0); HEMATOCRIT 35.8 % (42.0-52.0); HEMOGLOBIN 12.4 g/dl (13.5-17.5); LYMPH # 0.9 10^3/uL (1.5-5.0); LYMPH % 12.3 % (24.0-44.0); MEAN CORPUSCULAR HEMOGLOBIN 33.4 pg (27.0-33.0); MEAN CORPUSCULAR HGB CONC 34.6 g/dl (32.0-36.5); MEAN CORPUSCULAR VOLUME 96.5 fl (80.0-96.0); MONO # 1.1 10^3/uL (0.0-0.8); MONO % 14.9 % (0.0-5.0); NEUTROPHILS # 5.1 10^3/uL (1.5-8.5); NEUTROPHILS % 72.1 % (36.0-66.0); PLATELET COUNT, AUTOMATED 274 10^3/uL (150-450); RED BLOOD COUNT 3.71 10^6/uL (4.30-6.10); WHITE BLOOD COUNT 7.1 10^3/uL (4.0-10.0)
[2019-05-11 13:28] LABS: ALBUMIN 4.3 GM/DL (3.2-5.2); BILIRUBIN,DIRECT 0.2 MG/DL (0.0-0.2); BILIRUBIN,TOTAL 0.8 MG/DL (0.2-1.0); FREE T4 0.91 NG/DL (0.76-1.46); THYROID STIMULATING HORMONE 0.613 uIU/ML (0.358-3.740); TOTAL PROTEIN 7.9 GM/DL (6.4-8.2)
== END ==
LOC: M LAB 12:26
PROVIDERS: ATTEND Internal Medicine Gastroenterology
DX: R19.7 Diarrhea, unspecified (principal); F10.14 Alcohol abuse with alcohol-induced mood disorder

== ENCOUNTER → 2020-01-03 | Outpatient (CLI) | payer OTHER ==
[~2020-01-03] MED LIST changes: +OXYC30TA PO; -OXYC30TA84 PO
--- NOTE | 2020-01-05 02:39 | ECWPNPC ---
PATIENT NAME: SUNI DONATO : 1955 GENDER: MALE VISIT DATE: 01/03/2020 DISCHARGE DATE: 01/03/20 0956 VISIT LOCKED DATE TIME: PHYSICIAN: TYLER VILLATORO RESOURCE: TYLER VILLATORO REASON FOR APPOINTMENT 1. W/C MED MGMT HISTORY OF PRESENT ILLNESS GENERAL: -. FALL RISK SCREENING: SCREENING :ONE FALL WITH INJURY IN THE PAST YEAR PAIN SCREENING: PATIENT HAS A COMPLAINT OF ACUTE OR CHRONIC PAIN :YES LOCATION OF PAIN:LOW BACK INTENSITY OF PAIN (SCALE OF 1 TO 10):8 WHAT DOES YOUR PAIN FEEL LIKE:ACHING, BURNING, CONTINOUS, STABBING, TENDER, THROBBING, SORE, SHOOTING NURSING NOTE: -. PAIN CENTER INTAKE QUESTIONS: DO YOU HAVE A HISTORY OF MRSA? :NO DO YOU TAKE A BLOOD THINNERS? :NO DO YOU HAVE ANY BLEEDING DISORDERS? :NO ANY NEW NUMBNESS OR WEAKNESS IN YOUR LEGS OR ARMS? :NO ANY PACEMAKER,DEFIBRILLATOR, OR DORSAL COLUMN STIMULATOR? :NO DO YOU HAVE ANY RASHES OR OPEN SORES? :NO ARE YOU ALLERGIC TO IV DYE? :NO ARE YOU DIABETIC? :NO ANY NEW PROBLEMS WITH YOUR MEDICATIONS? :NO HAVE YOU RECEIVED A VACCINE IN THE PAST 30 DAYS? :NO DO YOU PLAN TO RECEIVE A VACCINE IN THE NEXT 21 DAYS? :NO DO YOU NEED ANY PRESCRIPTION? :NO DO YOU TAKE ANY IMMUNOSUPPRESSIVE MEDICATIONS? :NO IS THERE A CHANCE YOU COULD BE ? :NO ARE YOU BREAST FEEDING? :NO HISTORY OF PRESENT ILLNESS: HERE FOR F/U FOR CHRONIC LBP.HX OF POST LAMINECTOMY PAIN SYNDROME.CHRONIC PAIN MEDICATION USED TO TREAT WORK RELATED INJURY 11-29-1991:HYDROCODONE 10/325 1 Q4-6 PRN MDD6 PRN, AND GABAPENTIN 600MG TID.REPORTS THESE MEDICATIONS ARE HELPFUL AT REDUCING PAIN AND KEEPING HIM FUNCTIONAL.DENIES ADVERSE EFFECTS W MEDICATION.RATING PAIN LEVEL 7/10 VAS. WORSE AREA OF PAIN IS LOW BACK.PAIN IS WORSE IN AM. PAIN THE PATIENT DESCRIBES THE PAIN... THE PATIENT DESCRIBES THE PAIN... THE PATIENT DESCRIBES THE PAIN... THE PATIENT DESCRIBES THE PAIN... THE PATIENT DESCRIBES THE PAIN... THE PATIENT DESCRIBES THE PAIN... THE PATIENT DESCRIBES THE PAIN... THE PATIENT DESCRIBES THE PAIN... THE PATIENT DESCRIBES THE PAIN... THE PATIENT DESCRIBES THE PAIN... THE PATIENT DESCRIBES THE PAIN... CURRENT MEDICATIONS TAKING MAGNESIUM 500 MG CAPSULE 1 CAPSULE ORALLY ONCE A DAY TAKING LOSARTAN POTASSIUM 100 MG TABLET 1 TABLET ORALLY ONCE A DAY TAKING METOPROLOL TARTRATE 50 MG TABLET 1 TABLET ORALLY TWICE A DAY TAKING GEMFIBROZIL 600 MG TABLET 1 TABLET ORALLY ONCE A DAY TAKING POTASSIUM CHLORIDE JOSEPH ER 20 MEQ TABLET EXTENDED RELEASE 1 TABLET WITH FOOD ORALLY ONCE A DAY TAKING VITAMIN D3 5000 UNIT/ML LIQUID 0.1 ML ORALLY ONCE A DAY TAKING MAY USE B-ACTIVE VITAMIN ONCE DAILY TAKING GABAPENTIN 300 MG CAPSULE 2 ORALLY TID, NOTES: 05/03/19599 TAKING NORCO 10-325 MG TABLET 1 TAB ORALLY Q4-6H PRN MDD6, NOTES: 05/03/19599 TAKING GEMFIBROZIL 600 MG TABLET 1 TABLET 30 MINUTES BEFORE MORNING AND EVENING MEALS ORALLY TWICE A DAY TAKING ALENDRONATE SODIUM 70 MG TABLET 1 TABLET 30 MINUTES BEFORE THE FIRST FOOD, BEVERAGE OR MEDICINE OF THE DAY WITH PLAIN WATER ORALLY NOT-TAKING HYDROCHLOROTHIAZIDE 25 MG TABLET 1 TABLET ORALLY ONCE A DAY NOT-TAKING AMLODIPINE BESYLATE 10 MG TABLET 1 TABLET ORALLY ONCE A DAY NOT-TAKING ZONISAMIDE 100 MG CAPSULE 1 CAPSULE ORALLY ONCE A DAY NOT-TAKING TOPIRAMATE 50 MG TABLET 1 TABLET ORALLY BID NOT-TAKING METHYLCOBALAMIN 1 MG TABLET CHEWABLE DIRECTED ORALLY NOT-TAKING CLONIDINE HCL 0.1 MG TABLET 1 TABLET ORALLY ONCE OR TWICE A DAY NEEDED FOR HEADACHE NOT-TAKING OMEPRAZOLE 40 MG CAPSULE DELAYED RELEASE 1 CAPSULE ORALLY ONCE A DAY NEEDED NOT-TAKING LIDOCAINE 0.5 % AEROSOL ONE SPRAY TO EACH NOSTRIL 10 MINUTES AFTER AFRIN EXTERNALLY ONCE A DAY X MAX 3D NOT-TAKING AFRIN NASAL SPRAY 0.05 % SOLUTION SPRAYS N EACH NOSTRIL, PRIOR TO LIDOCAINE NASALLY ONCE A DAY X MAX 3D MEDICATION LIST REVIEWED AND RECONCILED WITH THE PATIENT PAST MEDICAL HISTORY HYPERTENSION HYPERLIPIDEMIA LOW BACK PAIN RADICULAR TO LEFT LEG SMOKING CHRONIC SINUSITIS ASTHMA OSTEOPOROSIS ALLERGIES LIPITOR: WEAKNESS, SYNCOPE - SIDE EFFECTS DUST MITES AND RAGWEED: SINUS CONGESTION - ALLERGY DOXYCYCLINE: HANDS/FEET SWELLED AND BLISTERED - ALLERGY OAK, MAPLE AND BIRCH TREES: SINUS CONGESTION - ALLERGY SURGICAL HISTORY LUMBAR DISCECTOMY 1997 FAMILY HISTORY FATHER: , DIAGNOSED WITH OTHER SPECIFIED CONDITIONS INFLUENCING HEALTH STATUS MOTHER: ALIVE, HYPERTENSION MATERNAL GRAND FATHER: , UNSPECIFIED HEART DISEASE, OTHER MALIGNANT NEOPLASM OF UNSPECIFIED SITE 4 BROTHER(S) , 3 SISTER(S) . 2 SON(S) , 1 DAUGHTER(S) - HEALTHY. SISTER - DM. SOCIAL HISTORY GENERAL: TOBACCO USE ARE YOU A:FORMER SMOKER HOW LONG HAS IT BEEN SINCE YOU LAST SMOKED?> 10 YEARS LATEX QUESTIONNAIRE LATEX ALLERGY : HAVE YOU EVER DEVELOPED ANY TYPE OF REACTION AFTER HANDLING LATEX PRODUCTS SUCH RUBBER GLOVES, CONDOMS, DIAPHRAGMS, BALLOONS, SOCKS, OR UNDERWEAR?NO LATEX ALLERGY : HAVE YOU EVER DEVELOPED ANY TYPE OF REACTION DURING OR AFTER DENTAL APPOINTMENT, VAGINAL/RECTAL EXAMINATION, SURGICAL PROCEDURE, OR ANY OTHER EXPOSURE?NO LATEX RISK : HAVE YOU EVER HAD ANY DIFFICULTY BREATHING OR HIVES AFTER EATING OR HANDLING ANY FRUITS, OR VEGETABLES; SUCH KIWI, BANANAS, STONE FRUITS, OR CHESTNUTSNO LATEX RISK : DO YOU HAVE A PREVIOUS PERSONAL HISTORY OF MORE THAN NINE SURGERIES, SPINA BIFIDA, OR REPEATED CATHERIZATIONS? NO LATEX RISK : ARE YOU FREQUENTLY EXPOSED TO LATEX PRODUCTS IN YOUR OCCUPATION?NO DATE ASKED : 01/03/2020 LUNG CANCER SCREENING SMOKING STATUS:FORMER SMOKER IS THE PATIENT BETWEEN THE AGE OF 53 AND 75?YES HAVE YOU QUIT SMOKING WITHIN THE PAST 15 YEARS?YES HAS THE PATIENT EVER BEEN DIAGNOSED WITH LUNG CANCER?NO BMI CARE GOAL FOLLOW-UP BELOW NORMAL BMI FOLLOW-UPDIETARY EDUCATION FOR WEIGHT GAIN ALCOHOL SCREENING DID YOU HAVE A DRINK CONTAINING ALCOHOL IN THE PAST YEAR?YES HOW OFTEN DID YOU HAVE SIX OR MORE DRINKS ON ONE OCCASION IN THE PAST YEAR?NEVER (0 POINTS) HOW MANY DRINKS DID YOU HAVE ON A TYPICAL DAY WHEN YOU WERE DRINKING IN THE PAST YEAR?1 OR 2 (0 POINTS) HOW OFTEN DID YOU HAVE A DRINK CONTAINING ALCOHOL IN THE PAST YEAR?TWO TO THREE TIMES PER WEEK (3 POINTS) POINTS3 INTERPRETATIONNEGATIVE RECREATIONAL DRUG USE DRUG USE?NO CAFFEINE CAFFEINE USE?NO SEXUAL HX HAD SEX IN THE LAST 12 MONTHS (VAGINAL, ORAL, OR ANAL)?YES WITHWOMEN ONLY USE PROTECTION?NO HAVE YOU EVER HAD AN STD?NO HIV / HEP-C SCREENING HIV TEST OFFERED TO PATIENT:YES DATE OFFERED:06/27/2016 TEST ACCEPTED:NO HEP-C TEST OFFERED TO PATIENT:YES DATE OFFERED:06/27/2016 REASON:PATIENT DECLINED TEST ACCEPTED:NO REASON:PATIENT DECLINED FAITH [id number] RASTAFARIAN NO SCIENTOLOGY BELIEFS THAT WOULD IMPACT HEALTH CARE. 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 DIET: REGULAR. EXERCISE: TRIES TO BE ACTIVE HE CAN. MARITAL STATUS: . OTHERS AT HOME: SPOUSE. PAIN CLINIC PFS, CLERGY, PUBLIC HEALTH REFERRALS PFS REFERRAL NEEDED?NO CLERGY REFERRAL NEEDED?NO PUBLIC HEALTH REFERRAL NEEDED?NO WAS THE PROVIDER NOTIFIED OF ANY PERTINENT INFO?NO HAS THE PATIENT BEEN EDUCATED REGARDING HIS/HER PLAN OF CARE?YES HAS THE PATIENT BEEN EDUCATED REGARDING PAIN, THE RISK FOR PAIN, THE IMPORTANCE OF EFFECTIVE PAIN MANAGEMENT, AND THE PAIN ASSESSMENT PROCESS?YES ADVANCE DIRECTIVE ADVANCE DIRECTIVE DISCUSSED WITH PATIENT:YES HCP INFORMATION GIVEN TO PATIENT, DECLINED ASSISTANCE IN FILLING OUT FORM. HOSPITALIZATION/MAJOR DIAGNOSTIC PROCEDURE DISCECTOMY 1997 REVIEW OF SYSTEMS CONSTITUTIONAL: ANY RECENT FEVER NO, NO, NO . CHILLS NO, NO, NO . WEIGHT CHANGE OF UNKNOWN REASONS NO, NO, NO . GASTROENTEROLOGY: NEW UNEXPLAINABLE CHANGES IN BOWEL CONTROL NO, NO, NO . CONSTIPATION NO, NO, NO . GENITOURINARY: ANY NEW CHANGE IN BLADDER CONTROL? NO, NO, NO . NEUROLOGY: NEW ONSET DIZZINESS OR NEUROLOGICAL CHANGES NOT MENTIONED NO, NO, NO . NEW NUMBNESS OR PAIN PATTERNS NOT MENTIONED AND PERTINENT TO TODAY'S VISIT NO, NO, NO . CARDIOLOGY: NEW CHEST PRESSURE NO, NO, NO . NEW CHEST PAIN NO, NO, NO . RESPIRATORY: UNEXPLAINABLE COUGH NO, NO, NO . NEW SHORTNESS OF BREATH NO, NO, NO . VITAL SIGNS WT 142.4 LBS, HT 64.5 IN, BMI 24.06 INDEX, BP 134/77 MM HG, HR 84 /MIN, RR 18 /MIN, TEMP 98.1 F, OXYGEN SAT % 97%, SAFE IN ENV? (Y/N) Y, NA INITIALS SC 09:40, REVIEWED BY: YARA. EXAMINATION GENERAL EXAMINATION: GENERALAWAKE,ALERT ,PLEAASANT . PSYCHAFFECT NORMAL . LUNGS:LUNG HOFFMAN ARE CLEAR TO AUSCULTATION BILATERALLY. GOOD MOVEMENT OF AIR . HEART:S1, S2 IN A REGULAR RATE AND RHYTHM. NO SIGNIFICANT MURMURS, RUBS OR GALLOPS NOTED . 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 BRINGS IN MEDICATIONS WHICH IS APPROPRIATE FOR WHAT WAS DISPENSED. RECENT URINE TOXICOLOGY REVIEWED. NO UNAUTHORIZED MEDICATIONS. NO ILLICIT SUBSTANCES AND PRESCRIBED MEDICATIONS WERE PRESENT. URINE TOX TODAY , RISKS OF NARCOTIC/OPIOD MEDICATIONS INCLUDES BUT IS NOT LIMITED TO RISK OF DEPENDANCE/DEVELOPMENT OF ADDICTION, MOOD DISTURBANCE AND DEPRESSION, OSTEOPOROSIS, HORMONAL AND LABIDAL CHANGES, RESPIRATORY DEPRESSION AND . PATIENT IS ADVISED NOT TO DRIVE OR DRINK ALCOHOL WHILE ON THESE MEDICATIONS. PROCEDURES PN WORKMANS' COMP OPINION IN YOUR OPINION, WAS THE INCIDENT THAT THE PATIENT DESCRIBED THE COMPETENT MEDICAL CAUSE OF THIS INJURY/ILLNESS? YES ARE THE PATIENT'S COMPLAINTS CONSISTENT WITH HIS/HER HISTORY OF THE INJURY/ILLNESS? YES IS THE PATIENT'S HISTORY OF THE INJURY/ILLNESS CONSISTENT WITH YOUR OBJECTIVE FINDING? YES WHAT IS THE PERCENTAGE OF TEMPORARY IMPAIRMENT? MODERATE TO MARKED = 66.7% IS THE PATIENT WORKING? NO DOCTOR ON SITE: DAIN SHEETS MD PREVENTIVE MEDICINE PAIN CLINIC TEACHING: THE PATIENT HAS BEEN EDUCATED REGARDING PAIN, THE RISK FOR PAIN, THE IMPORTANCE OF EFFECTIVE PAIN MANAGEMENT, AND THE PAIN ASSESSMENT PROCESS. : REVIEWED VERBAL DISCHARGE INSTRUCTIONS WITH PATIENT, PT ACKNOWLEDGED UNDERSTANDING,. DS PROCEDURE CODES FA211 ESTABILISHED PATIENT [facility] CHARGE DISPOSITION & COMMUNICATION FOLLOW UP 3 MONTHS (REASON: W/C LOW BACK) ELECTRONICALLY SIGNED BY RAGHU WALDEN ON 01/04/2020 AT 11:51 AM EDT DISCLAIMER : THIS IS A VISIT SUMMARY EXTRACTED FROM THE [employer] CHART. IT IS NOT A COPY OF THE [employer] PROGRESS NOTE. MTDD
== END ==
LOC: M PAIN 09:45
PROVIDERS: ATTEND Nurse Practitioner Family
DX: M96.1 Postlaminectomy syndrome, not elsewhere classified (principal); Z79.899 Other long term (current) drug therapy

== ENCOUNTER → 2020-04-04 | Outpatient (CLI) | payer OTHER ==
[~2020-04-04] MED LIST changes: +ALEN70TA74 PO; +DURA1CAP PO; +GLYCCAP PO; +HYDR-4517; +LEVE500T5 PO; +LOSA100T50 PO; +MAGN1CAP PO; +METO50TA7 PO
== END ==
LOC: M PAIN 10:50
PROVIDERS: ATTEND Nurse Practitioner Family
DX: M96.1 Postlaminectomy syndrome, not elsewhere classified (principal); Z79.891 Long term (current) use of opiate analgesic

== ENCOUNTER → 2020-04-08 | Outpatient (CLI) | payer OTHER | LOC: M LABSMTC 08:39 | PROVIDERS: ATTEND Anesthesiology | DX: Z01.812 Encounter for preprocedural laboratory examination (principal); Z20.828 Contact with and (suspected) exposure to other viral communicable diseases | CPT/HCPCS: C9803; U0003 ==

== ENCOUNTER 2020-04-13 06:56 | Day surgery (SDC) | payer MEDICARE ==
[~2020-04-13] VITALS: Ht 162.6 cm; Wt 64.9 kg
[~2020-04-13 06:56] MED LIST changes: -GLYCCAP PO; +NS 1,000 ML IV ONE
[2020-04-13] MEDS ORDERED: propofoL 200 MG/20 ML VIAL As Ordered ONE ×3 (07:14→08:27)
[2020-04-13] MEDS ORDERED: LIDOCAINE 2% 100MG/5ML SDV (FOR ANES.) As Ordered ONE (07:14)
[2020-04-13] MEDS ORDERED: GLYCCAP PO (07:18)
--- NOTE | 2020-04-13 08:41 | ROOR ---
Patient Name: Andrey Hawley Procedure Date: 04/13/2020 8:05 AM Date of : 1955 Age: 65 Room: [facility] Gender: Male Note Status: Finalized Procedure: Colonoscopy Indications: Chronic diarrhea Providers: Karson MCNAMARA MD Referring MD: Tasneem Meyers Requesting Provider: Medicines: Monitored Anesthesia Care Complications: No immediate complications. Procedure: Pre-Anesthesia Assessment: - The heart rate, respiratory rate, oxygen saturations, blood pressure, adequacy of pulmonary ventilation, and response to care were monitored throughout the procedure. The Colonoscope was introduced through the anus and advanced to 10 cm into the ileum. The colonoscopy was performed without difficulty. The patient tolerated the procedure well. The quality of the bowel preparation was good. Findings: The perianal and digital rectal examinations were normal. A 6 mm polyp was found in the sigmoid colon. The polyp was flat. The polyp was removed with a cold snare. Resection and retrieval were complete. Anal papilla(e) were hypertrophied. Small Internal Hemorrhoids. The colon and terminal ileum are otherwise without abnormality. Biopsies for histology were taken with a cold forceps from the entire colon for evaluation of microscopic colitis. Impression: - One 6 mm polyp in the sigmoid colon, removed with a cold snare. Resected and retrieved. - Anal papilla(e) were hypertrophied. - Small Internal Hemorrhoids. - The colon and terminal ileum are otherwise without abnormality. - Biopsies were taken with a cold forceps from the entire colon for evaluation of microscopic colitis. Recommendation: - Telephone endoscopist for pathology results in 2 weeks. - Reduce alcohol intake, reduce dairy intake. Karson Mcnamara MD Karson MCNAMARA MD 04/13/2020 8:41:28 AM Electronically signed by Karson MCNAMARA MD Number of Addenda: 0 Note Initiated On: 04/13/2020 8:05 AM Estimated Blood Loss: Estimated blood loss: none.
[2020-04-13 08:55] VITALS: BP 131/76
== END 2020-04-13 09:05 | disposition home or self-care (01) ==
LOC: M OPP 06:56
PROVIDERS: ATTEND Internal Medicine Gastroenterology
DX: D12.5 Benign neoplasm of sigmoid colon (principal); K62.89 Other specified diseases of anus and rectum; K52.9 Noninfective gastroenteritis and colitis, unspecified; I25.2 Old myocardial infarction; Z79.891 Long term (current) use of opiate analgesic; Z79.899 Other long term (current) drug therapy; Z87.891 Personal history of nicotine dependence

== ENCOUNTER → 2020-05-25 | Outpatient (CLI) | payer OTHER ==
[~2020-05-25] MED LIST changes: +GLYCCAP PO; -NS 1,000 ML IV ONE
--- NOTE | 2020-05-30 09:35 | ECWPNPC ---
PATIENT NAME: SUNI DONATO : 1955 GENDER: MALE VISIT DATE: 05/25/2020 DISCHARGE DATE: 05/25/20 1217 VISIT LOCKED DATE TIME: PHYSICIAN: TYLER VILLATORO PHYSICIAN PAGER NO: ACTIVE RESOURCE: TYLER VILLATORO REASON FOR APPOINTMENT 1. LOW BACK HISTORY OF PRESENT ILLNESS GENERAL: -. FALL RISK SCREENING: SCREENING :ONE FALL WITHOUT INJURY IN THE PAST YEAR PAIN SCREENING: PATIENT HAS A COMPLAINT OF ACUTE OR CHRONIC PAIN :YES LOCATION OF PAIN:LOW BACK INTENSITY OF PAIN (SCALE OF 1 TO 10):8 WHAT DOES YOUR PAIN FEEL LIKE:ACHING, BURNING, STABBING, THROBBING DURATION:CONTINOUS, CONSTANT PAIN IS INCREASED BY:ACTIVITIES PAIN IS DECREASED BY:USE OF PAIN MEDICATIONS TREATMENT/MEDICATIONS USED TO MANAGE PAIN:OPIOIDS LEVEL OF RELIEF FROM PAIN TREATMENTS IN THE PAST:50% PAIN HAS INTERFERED WITH THE FOLLOWING:BATHING/DRESSING, WALKING ABILITY, HOUSEWORK, SLEEP, TRANSPORTATION, TOILETING NURSING NOTE: -. PAIN CENTER INTAKE QUESTIONS: DO YOU HAVE A HISTORY OF MRSA? :NO DO YOU TAKE A BLOOD THINNERS? :NO DO YOU HAVE ANY BLEEDING DISORDERS? :NO ANY NEW NUMBNESS OR WEAKNESS IN YOUR LEGS OR ARMS? :NO ANY PACEMAKER,DEFIBRILLATOR, OR DORSAL COLUMN STIMULATOR? :NO DO YOU HAVE ANY RASHES OR OPEN SORES? :NO ARE YOU ALLERGIC TO IV DYE? :NO ARE YOU DIABETIC? :NO ANY NEW PROBLEMS WITH YOUR MEDICATIONS? :NO HAVE YOU RECEIVED A VACCINE IN THE PAST 30 DAYS? :NO DO YOU PLAN TO RECEIVE A VACCINE IN THE NEXT 21 DAYS? :NO DO YOU NEED ANY PRESCRIPTION? :NO DO YOU TAKE ANY IMMUNOSUPPRESSIVE MEDICATIONS? :NO IS THERE A CHANCE YOU COULD BE ? :NO ARE YOU BREAST FEEDING? :NO HISTORY OF PRESENT ILLNESS: HERE FOR F/U FOR CHRONIC LBP.HX OF POST LAMINECTOMY PAIN SYNDROME.CHRONIC PAIN MEDICATION USED TO TREAT WORK RELATED INJURY 11-29-1991:HYDROCODONE 10/325 1 Q4-6 PRN MDD6 PRN, AND GABAPENTIN 600MG TID.REPORTS THESE MEDICATIONS ARE HELPFUL AT REDUCING PAIN AND KEEPING HIM FUNCTIONAL.DENIES ADVERSE EFFECTS W MEDICATION.RATING PAIN LEVEL 7/10 VAS. WORSE AREA OF PAIN IS LOW BACK.PAIN IS WORSE IN AM. PAIN THE PATIENT DESCRIBES THE PAIN... THE PATIENT DESCRIBES THE PAIN... THE PATIENT DESCRIBES THE PAIN... THE PATIENT DESCRIBES THE PAIN... THE PATIENT DESCRIBES THE PAIN... THE PATIENT DESCRIBES THE PAIN... THE PATIENT DESCRIBES THE PAIN... THE PATIENT DESCRIBES THE PAIN... THE PATIENT DESCRIBES THE PAIN... THE PATIENT DESCRIBES THE PAIN... THE PATIENT DESCRIBES THE PAIN... CURRENT MEDICATIONS TAKING MAGNESIUM 500 MG CAPSULE 1 CAPSULE ORALLY ONCE A DAY TAKING LOSARTAN POTASSIUM 100 MG TABLET 1 TABLET ORALLY ONCE A DAY TAKING METOPROLOL TARTRATE 50 MG TABLET 1 TABLET ORALLY TWICE A DAY TAKING GEMFIBROZIL 600 MG TABLET 1 TABLET ORALLY ONCE A DAY TAKING VITAMIN D3 5000 UNIT/ML LIQUID 0.1 ML ORALLY ONCE A DAY TAKING MAY USE B-ACTIVE VITAMIN ONCE DAILY TAKING ALENDRONATE SODIUM 70 MG TABLET 1 TABLET 30 MINUTES BEFORE THE FIRST FOOD, BEVERAGE OR MEDICINE OF THE DAY WITH PLAIN WATER ORALLY TAKING NORCO 10-325 MG TABLET 1 TAB ORALLY Q4-6H PRN MDD6, NOTES: 05/03/19599 TAKING LEVETIRACETAM 500 MG TABLET 1 TABLET ORALLY DAILY TAKING ALENDRONATE SODIUM 70 MG TABLET 1 TABLET 30 MINUTES BEFORE THE FIRST FOOD, BEVERAGE OR MEDICINE OF THE DAY WITH PLAIN WATER ORALLY WEEKLY NOT-TAKING POTASSIUM CHLORIDE JOSEPH ER 20 MEQ TABLET EXTENDED RELEASE 1 TABLET WITH FOOD ORALLY ONCE A DAY NOT-TAKING GEMFIBROZIL 600 MG TABLET 1 TABLET 30 MINUTES BEFORE MORNING AND EVENING MEALS ORALLY TWICE A DAY NOT-TAKING GABAPENTIN 300 MG CAPSULE 2 ORALLY TID, NOTES: 05/03/19599 NOT-TAKING HYDROCHLOROTHIAZIDE 25 MG TABLET 1 TABLET ORALLY ONCE A DAY NOT-TAKING AMLODIPINE BESYLATE 10 MG TABLET 1 TABLET ORALLY ONCE A DAY NOT-TAKING ZONISAMIDE 100 MG CAPSULE 1 CAPSULE ORALLY ONCE A DAY NOT-TAKING TOPIRAMATE 50 MG TABLET 1 TABLET ORALLY BID NOT-TAKING METHYLCOBALAMIN 1 MG TABLET CHEWABLE DIRECTED ORALLY NOT-TAKING CLONIDINE HCL 0.1 MG TABLET 1 TABLET ORALLY ONCE OR TWICE A DAY NEEDED FOR HEADACHE NOT-TAKING OMEPRAZOLE 40 MG CAPSULE DELAYED RELEASE 1 CAPSULE ORALLY ONCE A DAY NEEDED NOT-TAKING LIDOCAINE 0.5 % AEROSOL ONE SPRAY TO EACH NOSTRIL 10 MINUTES AFTER AFRIN EXTERNALLY ONCE A DAY X MAX 3D NOT-TAKING AFRIN NASAL SPRAY 0.05 % SOLUTION SPRAYS N EACH NOSTRIL, PRIOR TO LIDOCAINE NASALLY ONCE A DAY X MAX 3D MEDICATION LIST REVIEWED AND RECONCILED WITH THE PATIENT PAST MEDICAL HISTORY HYPERTENSION HYPERLIPIDEMIA LOW BACK PAIN RADICULAR TO LEFT LEG SMOKING CHRONIC SINUSITIS ASTHMA OSTEOPOROSIS ALLERGIES LIPITOR: WEAKNESS, SYNCOPE - SIDE EFFECTS DUST MITES AND RAGWEED: SINUS CONGESTION - ALLERGY DOXYCYCLINE: HANDS/FEET SWELLED AND BLISTERED - ALLERGY OAK, MAPLE AND BIRCH TREES: SINUS CONGESTION - ALLERGY SURGICAL HISTORY LUMBAR DISCECTOMY 1997 FAMILY HISTORY FATHER: , DIAGNOSED WITH OTHER SPECIFIED CONDITIONS INFLUENCING HEALTH STATUS MOTHER: ALIVE, HYPERTENSION MATERNAL GRAND FATHER: , UNSPECIFIED HEART DISEASE, OTHER MALIGNANT NEOPLASM OF UNSPECIFIED SITE 4 BROTHER(S) , 3 SISTER(S) . 2 SON(S) , 1 DAUGHTER(S) - HEALTHY. SISTER - DM. SOCIAL HISTORY GENERAL: TOBACCO USE ARE YOU A:FORMER SMOKER HOW LONG HAS IT BEEN SINCE YOU LAST SMOKED?> 10 YEARS LATEX QUESTIONNAIRE LATEX ALLERGY : HAVE YOU EVER DEVELOPED ANY TYPE OF REACTION AFTER HANDLING LATEX PRODUCTS SUCH RUBBER GLOVES, CONDOMS, DIAPHRAGMS, BALLOONS, SOCKS, OR UNDERWEAR?NO LATEX ALLERGY : HAVE YOU EVER DEVELOPED ANY TYPE OF REACTION DURING OR AFTER DENTAL APPOINTMENT, VAGINAL/RECTAL EXAMINATION, SURGICAL PROCEDURE, OR ANY OTHER EXPOSURE?NO DATE ASKED : 01/03/2020 LATEX RISK : HAVE YOU EVER HAD ANY DIFFICULTY BREATHING OR HIVES AFTER EATING OR HANDLING ANY FRUITS, OR VEGETABLES; SUCH KIWI, BANANAS, STONE FRUITS, OR CHESTNUTSNO LATEX RISK : DO YOU HAVE A PREVIOUS PERSONAL HISTORY OF MORE THAN NINE SURGERIES, SPINA BIFIDA, OR REPEATED CATHERIZATIONS? NO LATEX RISK : ARE YOU FREQUENTLY EXPOSED TO LATEX PRODUCTS IN YOUR OCCUPATION?NO LUNG CANCER SCREENING SMOKING STATUS:FORMER SMOKER IS THE PATIENT BETWEEN THE AGE OF 53 AND 75?YES HAVE YOU QUIT SMOKING WITHIN THE PAST 15 YEARS?YES HAS THE PATIENT EVER BEEN DIAGNOSED WITH LUNG CANCER?NO BMI CARE GOAL FOLLOW-UP BELOW NORMAL BMI FOLLOW-UPDIETARY EDUCATION FOR WEIGHT GAIN ALCOHOL SCREENING DID YOU HAVE A DRINK CONTAINING ALCOHOL IN THE PAST YEAR?YES HOW OFTEN DID YOU HAVE SIX OR MORE DRINKS ON ONE OCCASION IN THE PAST YEAR?NEVER (0 POINTS) HOW MANY DRINKS DID YOU HAVE ON A TYPICAL DAY WHEN YOU WERE DRINKING IN THE PAST YEAR?1 OR 2 (0 POINTS) HOW OFTEN DID YOU HAVE A DRINK CONTAINING ALCOHOL IN THE PAST YEAR?TWO TO THREE TIMES PER WEEK (3 POINTS) POINTS3 INTERPRETATIONNEGATIVE RECREATIONAL DRUG USE DRUG USE?NO CAFFEINE CAFFEINE USE?NO SEXUAL HX HAD SEX IN THE LAST 12 MONTHS (VAGINAL, ORAL, OR ANAL)?YES WITHWOMEN ONLY USE PROTECTION?NO HAVE YOU EVER HAD AN STD?NO HIV / HEP-C SCREENING HIV TEST OFFERED TO PATIENT:YES DATE OFFERED:06/27/2016 TEST ACCEPTED:NO HEP-C TEST OFFERED TO PATIENT:YES DATE OFFERED:06/27/2016 REASON:PATIENT DECLINED TEST ACCEPTED:NO REASON:PATIENT DECLINED [employer] [id number] [employer] NO FAITH BELIEFS THAT WOULD IMPACT HEALTH CARE. 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 DIET: REGULAR. EXERCISE: TRIES TO BE ACTIVE HE CAN. MARITAL STATUS: . OTHERS AT HOME: SPOUSE. PAIN CLINIC PFS, CLERGY, PUBLIC HEALTH REFERRALS PFS REFERRAL NEEDED?NO CLERGY REFERRAL NEEDED?NO PUBLIC HEALTH REFERRAL NEEDED?NO WAS THE PROVIDER NOTIFIED OF ANY PERTINENT INFO?NO HAS THE PATIENT BEEN EDUCATED REGARDING HIS/HER PLAN OF CARE?YES HAS THE PATIENT BEEN EDUCATED REGARDING PAIN, THE RISK FOR PAIN, THE IMPORTANCE OF EFFECTIVE PAIN MANAGEMENT, AND THE PAIN ASSESSMENT PROCESS?YES ADVANCE DIRECTIVE ADVANCE DIRECTIVE DISCUSSED WITH PATIENT:YES HCP INFORMATION GIVEN TO PATIENT, DECLINED ASSISTANCE IN FILLING OUT FORM. HOSPITALIZATION/MAJOR DIAGNOSTIC PROCEDURE DISCECTOMY 1997 REVIEW OF SYSTEMS CONSTITUTIONAL: ANY RECENT FEVER NO, NO, NO . CHILLS NO, NO, NO . WEIGHT CHANGE OF UNKNOWN REASONS NO, NO, NO . GASTROENTEROLOGY: NEW UNEXPLAINABLE CHANGES IN BOWEL CONTROL NO, NO, NO . CONSTIPATION NO, NO, NO . GENITOURINARY: ANY NEW CHANGE IN BLADDER CONTROL? NO, NO, NO . NEUROLOGY: NEW ONSET DIZZINESS OR NEUROLOGICAL CHANGES NOT MENTIONED NO, NO, NO . NEW NUMBNESS OR PAIN PATTERNS NOT MENTIONED AND PERTINENT TO TODAY'S VISIT NO, NO, NO . CARDIOLOGY: NEW CHEST PRESSURE NO, NO, NO . NEW CHEST PAIN NO, NO, NO . RESPIRATORY: UNEXPLAINABLE COUGH NO, NO, NO . NEW SHORTNESS OF BREATH NO, NO, NO . VITAL SIGNS WT 150.2 LBS, HT 64.5 IN, BMI 25.38 INDEX, BP 138/71 MM HG, HR 73 /MIN, RR 18 /MIN, TEMP 98.0 F, OXYGEN SAT % 97%, SAFE IN ENV? (Y/N) Y, NA INITIALS AW 1116, REVIEWED BY: EM. EXAMINATION GENERAL EXAMINATION: GENERALAWAKE,ALERT ,PLEAASANT . PSYCHAFFECT NORMAL . LUNGS:LUNG HOFFMAN ARE CLEAR TO AUSCULTATION BILATERALLY. GOOD MOVEMENT OF AIR . HEART:S1, S2 IN A REGULAR RATE AND RHYTHM. NO SIGNIFICANT MURMURS, RUBS OR GALLOPS NOTED . 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 BRINGS IN MEDICATIONS WHICH IS APPROPRIATE FOR WHAT WAS DISPENSED. RECENT URINE TOXICOLOGY REVIEWED. NO UNAUTHORIZED MEDICATIONS. NO ILLICIT SUBSTANCES AND PRESCRIBED MEDICATIONS WERE PRESENT. URINE TOXICOLOGY TODAY , RISKS OF NARCOTIC/OPIOD MEDICATIONS INCLUDES BUT IS NOT LIMITED TO RISK OF DEPENDANCE/DEVELOPMENT OF ADDICTION, MOOD DISTURBANCE AND DEPRESSION, OSTEOPOROSIS, HORMONAL AND LABIDAL CHANGES, RESPIRATORY DEPRESSION AND . PATIENT IS ADVISED NOT TO DRIVE OR DRINK ALCOHOL WHILE ON THESE MEDICATIONS. PROCEDURES PN WORKMANS' COMP OPINION IN YOUR OPINION, WAS THE INCIDENT THAT THE PATIENT DESCRIBED THE COMPETENT MEDICAL CAUSE OF THIS INJURY/ILLNESS? YES ARE THE PATIENT'S COMPLAINTS CONSISTENT WITH HIS/HER HISTORY OF THE INJURY/ILLNESS? YES IS THE PATIENT'S HISTORY OF THE INJURY/ILLNESS CONSISTENT WITH YOUR OBJECTIVE FINDING? YES WHAT IS THE PERCENTAGE OF TEMPORARY IMPAIRMENT? MODERATE TO MARKED = 66.7% IS THE PATIENT WORKING? NO DOCTOR ON SITE: DAIN SHEETS MD PROCEDURE CODES FA211 ESTABILISHED PATIENT [facility] CHARGE DISPOSITION & COMMUNICATION FOLLOW UP 4 MONTHS (REASON: WORKMEN'S COMP/LOW BACK PAIN/MEDICATION MANAGEMENT) ELECTRONICALLY SIGNED BY RAGHU WALDEN ON 05/29/2020 AT 03:02 PM EST DISCLAIMER : THIS IS A VISIT SUMMARY EXTRACTED FROM THE [employer] CHART. IT IS NOT A COPY OF THE [employer] PROGRESS NOTE. ALISON
== END ==
LOC: M PAIN 11:15
PROVIDERS: ATTEND Nurse Practitioner Family
DX: M96.1 Postlaminectomy syndrome, not elsewhere classified (principal); I10 Essential (primary) hypertension; E78.5 Hyperlipidemia, unspecified; J45.909 Unspecified asthma, uncomplicated; M81.0 Age-related osteoporosis without current pathological fracture; J32.9 Chronic sinusitis, unspecified; Z87.891 Personal history of nicotine dependence; Z79.899 Other long term (current) drug therapy; Z88.1 Allergy status to other antibiotic agents; Z88.8 Allergy status to other drugs, medicaments and biological substances; Z91.048 Other nonmedicinal substance allergy status

== ENCOUNTER → 2020-10-02 | Outpatient (CLI) | payer OTHER ==
[~2020-10-02] MED LIST changes: -ALEN70TA74 PO; +ALEN70TA82 PO
--- NOTE | 2020-10-05 05:35 | ECWPNPC ---
PATIENT NAME: SUNI DONATO : 1955 GENDER: MALE VISIT DATE: 10/02/2020 DISCHARGE DATE: 10/02/20 1159 VISIT LOCKED DATE TIME: PHYSICIAN: TYLER VILLATORO PHYSICIAN PAGER NO: ACTIVE RESOURCE: TYLER VILLATORO REASON FOR APPOINTMENT 1. WORKMEN'S COMP/LOW BACK PAIN/MEDICATION MANAGEMENT HISTORY OF PRESENT ILLNESS DEPRESSION SCREENING: PHQ-2 (2015 EDITION) LITTLE INTEREST OR PLEASURE IN DOING THINGS?NOT AT ALL FEELING DOWN, DEPRESSED, OR HOPELESS?NOT AT ALL TOTAL SCORE0 GENERAL: -. FALL RISK SCREENING: SCREENING : NO FALLS REPORTED IN THE LAST YEAR. PAIN SCREENING: PATIENT HAS A COMPLAINT OF ACUTE OR CHRONIC PAIN :YES LOCATION OF PAIN:LOW BACK INTENSITY OF PAIN (SCALE OF 1 TO 10):8 WHAT DOES YOUR PAIN FEEL LIKE:ACHING, BURNING, STABBING, TENDER, SHOOTING DURATION:CONTINOUS, CONSTANT, ALL DAY PAIN IS INCREASED BY:ACTIVITIES, PROLONGED STANDING PAIN IS DECREASED BY:USE OF PAIN MEDICATIONS NURSING NOTE: -. PAIN CENTER INTAKE QUESTIONS: DO YOU HAVE A HISTORY OF MRSA? :NO DO YOU TAKE A BLOOD THINNERS? :NO DO YOU HAVE ANY BLEEDING DISORDERS? :NO ANY NEW NUMBNESS OR WEAKNESS IN YOUR LEGS OR ARMS? :NO ANY PACEMAKER,DEFIBRILLATOR, OR DORSAL COLUMN STIMULATOR? :NO DO YOU HAVE ANY RASHES OR OPEN SORES? :NO ARE YOU ALLERGIC TO IV DYE? :NO ARE YOU DIABETIC? :NO ANY NEW PROBLEMS WITH YOUR MEDICATIONS? :NO HAVE YOU RECEIVED A VACCINE IN THE PAST 30 DAYS? :YES IF SO WHAT VACCINE AND WHEN? 2ND COVID 09/08/2020 DO YOU PLAN TO RECEIVE A VACCINE IN THE NEXT 21 DAYS? :NO DO YOU NEED ANY PRESCRIPTION? :NO DO YOU TAKE ANY IMMUNOSUPPRESSIVE MEDICATIONS? :NO IS THERE A CHANCE YOU COULD BE ? :NO ARE YOU BREAST FEEDING? :NO HISTORY OF PRESENT ILLNESS: HERE FOR F/U FOR CHRONIC LBP.HX OF POST LAMINECTOMY PAIN SYNDROME.CHRONIC PAIN MEDICATION USED TO TREAT WORK RELATED INJURY 11-29-1991:HYDROCODONE 10/325 1 Q4-6 PRN MDD6 PRN, AND GABAPENTIN 600MG TID.REPORTS THESE MEDICATIONS ARE HELPFUL AT REDUCING PAIN AND KEEPING HIM FUNCTIONAL.DENIES ADVERSE EFFECTS W MEDICATION.RATING PAIN LEVEL 7/10 VAS. WORSE AREA OF PAIN IS LOW BACK.PAIN IS WORSE IN AM. HERE FOR F/U FOR CHRONIC LBP.HX OF POST LAMINECTOMY PAIN SYNDROME.CHRONIC PAIN MEDICATION USED TO TREAT WORK RELATED INJURY 11-29-1991:HYDROCODONE 10/325 1 Q4-6 PRN MDD6 PRN, AND GABAPENTIN 600MG TID.REPORTS THESE MEDICATIONS ARE HELPFUL AT REDUCING PAIN AND KEEPING HIM FUNCTIONAL.DENIES ADVERSE EFFECTS W MEDICATION.RATING PAIN LEVEL 7/10 VAS. WORSE AREA OF PAIN IS LOW BACK.PAIN IS WORSE IN AM. PAIN THE PATIENT DESCRIBES THE PAIN... THE PATIENT DESCRIBES THE PAIN... THE PATIENT DESCRIBES THE PAIN... THE PATIENT DESCRIBES THE PAIN... THE PATIENT DESCRIBES THE PAIN... THE PATIENT DESCRIBES THE PAIN... THE PATIENT DESCRIBES THE PAIN... THE PATIENT DESCRIBES THE PAIN... THE PATIENT DESCRIBES THE PAIN... THE PATIENT DESCRIBES THE PAIN... THE PATIENT DESCRIBES THE PAIN... CURRENT MEDICATIONS TAKING HYDROCODONE-ACETAMINOPHEN 10-325 MG TABLET 1 TAB ORALLY Q4-6HR PRN MDD6 TAKING MAGNESIUM 500 MG CAPSULE 1 CAPSULE ORALLY ONCE A DAY TAKING LOSARTAN POTASSIUM 100 MG TABLET 1 TABLET ORALLY ONCE A DAY TAKING METOPROLOL TARTRATE 50 MG TABLET 1 TABLET ORALLY TWICE A DAY TAKING GEMFIBROZIL 600 MG TABLET 1 TABLET ORALLY ONCE A DAY TAKING VITAMIN D3 5000 UNIT/ML LIQUID 0.1 ML ORALLY ONCE A DAY TAKING MAY USE B-ACTIVE VITAMIN ONCE DAILY TAKING ALENDRONATE SODIUM 70 MG TABLET 1 TABLET 30 MINUTES BEFORE THE FIRST FOOD, BEVERAGE OR MEDICINE OF THE DAY WITH PLAIN WATER ORALLY TAKING LEVETIRACETAM 500 MG TABLET 1 TABLET ORALLY DAILY TAKING ALENDRONATE SODIUM 70 MG TABLET 1 TABLET 30 MINUTES BEFORE THE FIRST FOOD, BEVERAGE OR MEDICINE OF THE DAY WITH PLAIN WATER ORALLY WEEKLY TAKING GABAPENTIN 300 MG CAPSULE 2 ORALLY TID, NOTES: 05/03/19 0600 TAKING GEMFIBROZIL 600 MG TABLET 1 TABLET 30 MINUTES BEFORE MORNING AND EVENING MEALS ORALLY TWICE A DAY TAKING HYDROCHLOROTHIAZIDE 25 MG TABLET 1 TABLET ORALLY ONCE A DAY TAKING CLONIDINE HCL 0.1 MG TABLET 1 TABLET ORALLY ONCE OR TWICE A DAY NEEDED FOR HEADACHE TAKING OMEPRAZOLE 40 MG CAPSULE DELAYED RELEASE 1 CAPSULE ORALLY ONCE A DAY NEEDED NOT-TAKING POTASSIUM CHLORIDE JOSEPH ER 20 MEQ TABLET EXTENDED RELEASE 1 TABLET WITH FOOD ORALLY ONCE A DAY NOT-TAKING AMLODIPINE BESYLATE 10 MG TABLET 1 TABLET ORALLY ONCE A DAY NOT-TAKING ZONISAMIDE 100 MG CAPSULE 1 CAPSULE ORALLY ONCE A DAY NOT-TAKING TOPIRAMATE 50 MG TABLET 1 TABLET ORALLY BID NOT-TAKING METHYLCOBALAMIN 1 MG TABLET CHEWABLE DIRECTED ORALLY NOT-TAKING LIDOCAINE 0.5 % AEROSOL ONE SPRAY TO EACH NOSTRIL 10 MINUTES AFTER AFRIN EXTERNALLY ONCE A DAY X MAX 3D NOT-TAKING AFRIN NASAL SPRAY 0.05 % SOLUTION SPRAYS N EACH NOSTRIL, PRIOR TO LIDOCAINE NASALLY ONCE A DAY X MAX 3D MEDICATION LIST REVIEWED AND RECONCILED WITH THE PATIENT PAST MEDICAL HISTORY HYPERTENSION HYPERLIPIDEMIA LOW BACK PAIN RADICULAR TO LEFT LEG SMOKING CHRONIC SINUSITIS ASTHMA OSTEOPOROSIS BOTOX INJECTIONS ALLERGIES LIPITOR: WEAKNESS, SYNCOPE - SIDE EFFECTS DUST MITES AND RAGWEED: SINUS CONGESTION - ALLERGY DOXYCYCLINE: HANDS/FEET SWELLED AND BLISTERED - ALLERGY OAK, MAPLE AND BIRCH TREES: SINUS CONGESTION - ALLERGY SURGICAL HISTORY LUMBAR DISCECTOMY 1997 SOCIAL HISTORY GENERAL: TOBACCO USE ARE YOU A:FORMER SMOKER HOW LONG HAS IT BEEN SINCE YOU LAST SMOKED?> 10 YEARS LATEX QUESTIONNAIRE LATEX ALLERGY : HAVE YOU EVER DEVELOPED ANY TYPE OF REACTION AFTER HANDLING LATEX PRODUCTS SUCH RUBBER GLOVES, CONDOMS, DIAPHRAGMS, BALLOONS, SOCKS, OR UNDERWEAR?NO LATEX ALLERGY : HAVE YOU EVER DEVELOPED ANY TYPE OF REACTION DURING OR AFTER DENTAL APPOINTMENT, VAGINAL/RECTAL EXAMINATION, SURGICAL PROCEDURE, OR ANY OTHER EXPOSURE?NO LATEX RISK : HAVE YOU EVER HAD ANY DIFFICULTY BREATHING OR HIVES AFTER EATING OR HANDLING ANY FRUITS, OR VEGETABLES; SUCH KIWI, BANANAS, STONE FRUITS, OR CHESTNUTSNO LATEX RISK : DO YOU HAVE A PREVIOUS PERSONAL HISTORY OF MORE THAN NINE SURGERIES, SPINA BIFIDA, OR REPEATED CATHERIZATIONS? NO LATEX RISK : ARE YOU FREQUENTLY EXPOSED TO LATEX PRODUCTS IN YOUR OCCUPATION?NO DATE ASKED : 10/02/2020 ALCOHOL USE: YES. LUNG CANCER SCREENING SMOKING STATUS:FORMER SMOKER IS THE PATIENT BETWEEN THE AGE OF 53 AND 75?YES HAVE YOU QUIT SMOKING WITHIN THE PAST 15 YEARS?YES HAS THE PATIENT EVER BEEN DIAGNOSED WITH LUNG CANCER?NO BMI CARE GOAL FOLLOW-UP BELOW NORMAL BMI FOLLOW-UPDIETARY EDUCATION FOR WEIGHT GAIN ALCOHOL SCREENING DID YOU HAVE A DRINK CONTAINING ALCOHOL IN THE PAST YEAR?YES HOW OFTEN DID YOU HAVE SIX OR MORE DRINKS ON ONE OCCASION IN THE PAST YEAR?NEVER (0 POINTS) HOW MANY DRINKS DID YOU HAVE ON A TYPICAL DAY WHEN YOU WERE DRINKING IN THE PAST YEAR?1 OR 2 (0 POINTS) HOW OFTEN DID YOU HAVE A DRINK CONTAINING ALCOHOL IN THE PAST YEAR?TWO TO THREE TIMES PER WEEK (3 POINTS) POINTS3 INTERPRETATIONNEGATIVE RECREATIONAL DRUG USE DRUG USE?NO CAFFEINE CAFFEINE USE?NO SEXUAL HX HAD SEX IN THE LAST 12 MONTHS (VAGINAL, ORAL, OR ANAL)?YES WITHWOMEN ONLY USE PROTECTION?NO HAVE YOU EVER HAD AN STD?NO HIV / HEP-C SCREENING HIV TEST OFFERED TO PATIENT:YES DATE OFFERED:06/27/2016 TEST ACCEPTED:NO HEP-C TEST OFFERED TO PATIENT:YES DATE OFFERED:06/27/2016 REASON:PATIENT DECLINED TEST ACCEPTED:NO REASON:PATIENT DECLINED RELIGIOUS [id number] JEWISH NO TENRIISM BELIEFS THAT WOULD IMPACT HEALTH CARE. LANGUAGE LANGUAGES SPOKEN:[place] OF [place] EDUCATION LEVEL OF EDUCATION:NOT FINISHED HIGH SCHOOL LEARNING BARRIERS / SPECIAL NEEDS CHANGE FROM LAST VISIT?NO BARRIERS TO LEARNING?NO HEARING IMPAIRED?NO VISION IMPAIRED?YES :CORRECTIVE LENSES COGNITIVELY IMPAIRED?NO READINESS TO LEARN?YES LEARNING PREFERENCES?NO LEARNING CAPABILITIES PRESENT?YES EMOTIONAL BARRIERS?NO SPECIAL DEVICES?YES :CANE GROUND LAYER NEEDED?NO OCCUPATION: RETIRED. DIET: REGULAR. EXERCISE: TRIES TO BE ACTIVE HE CAN. MARITAL STATUS: . OTHERS AT HOME: SPOUSE. - PFS REFERRAL NEEDED?NO CLERGY REFERRAL NEEDED?NO PUBLIC HEALTH REFERRAL NEEDED?NO WAS THE PROVIDER NOTIFIED OF ANY PERTINENT INFO?NO HAS THE PATIENT BEEN EDUCATED REGARDING HIS/HER PLAN OF CARE?YES HAS THE PATIENT BEEN EDUCATED REGARDING PAIN, THE RISK FOR PAIN, THE IMPORTANCE OF EFFECTIVE PAIN MANAGEMENT, AND THE PAIN ASSESSMENT PROCESS?YES ADVANCE DIRECTIVE ADVANCE DIRECTIVE DISCUSSED WITH PATIENT:YES HCP INFORMATION GIVEN TO PATIENT, DECLINED ASSISTANCE IN FILLING OUT FORM. HOSPITALIZATION/MAJOR DIAGNOSTIC PROCEDURE DISCECTOMY 1997 REVIEW OF SYSTEMS CONSTITUTIONAL: ANY RECENT FEVER NO, NO, NO . CHILLS NO, NO, NO . WEIGHT CHANGE OF UNKNOWN REASONS NO, NO, NO . GASTROENTEROLOGY: NEW UNEXPLAINABLE CHANGES IN BOWEL CONTROL NO, NO, NO . CONSTIPATION NO, NO, NO . GENITOURINARY: ANY NEW CHANGE IN BLADDER CONTROL? NO, NO, NO . NEUROLOGY: NEW ONSET DIZZINESS OR NEUROLOGICAL CHANGES NOT MENTIONED NO, NO, NO . NEW NUMBNESS OR PAIN PATTERNS NOT MENTIONED AND PERTINENT TO TODAY'S VISIT NO, NO, NO . CARDIOLOGY: NEW CHEST PRESSURE NO, NO, NO . PATIENT DENIES NO, NO, NO . RESPIRATORY: UNEXPLAINABLE COUGH NO, NO, NO . NEW SHORTNESS OF BREATH NO, NO, NO . VITAL SIGNS WT 155.2 LBS, HT 64.5 IN, BMI 26.23 INDEX, BP 172/83 MM HG, HR 82 /MIN, RR 18 /MIN, TEMP 98.3 F, OXYGEN SAT % 98%, SAFE IN ENV? (Y/N) YES, NA INITIALS SC 11:32T.YAQUELIN MA. EXAMINATION GENERAL EXAMINATION: GENERALAWAKE,ALERT ,PLEAASANT . PSYCHAFFECT NORMAL . LUNGS:LUNG HOFFMAN ARE CLEAR TO AUSCULTATION BILATERALLY. GOOD MOVEMENT OF AIR . HEART:S1, S2 IN A REGULAR RATE AND RHYTHM. NO SIGNIFICANT MURMURS, RUBS OR GALLOPS NOTED . 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 BRINGS IN MEDICATIONS WHICH IS APPROPRIATE FOR WHAT WAS DISPENSED. RECENT URINE TOXICOLOGY REVIEWED. NO UNAUTHORIZED MEDICATIONS. NO ILLICIT SUBSTANCES AND PRESCRIBED MEDICATIONS WERE PRESENT. PROCEDURES PN WORKMANS' COMP OPINION IN YOUR OPINION, WAS THE INCIDENT THAT THE PATIENT DESCRIBED THE COMPETENT MEDICAL CAUSE OF THIS INJURY/ILLNESS? YES ARE THE PATIENT'S COMPLAINTS CONSISTENT WITH HIS/HER HISTORY OF THE INJURY/ILLNESS? YES IS THE PATIENT'S HISTORY OF THE INJURY/ILLNESS CONSISTENT WITH YOUR OBJECTIVE FINDING? YES WHAT IS THE PERCENTAGE OF TEMPORARY IMPAIRMENT? MODERATE TO MARKED = 66.7% IS THE PATIENT WORKING? NO DOCTOR ON SITE: DAIN SHEETS MD PROCEDURE CODES FA211 ESTABILISHED PATIENT [facility] FACILITY CHARGE DISPOSITION & COMMUNICATION FOLLOW UP 3 MONTHS (REASON: MED MGMNT/UTOX) ELECTRONICALLY SIGNED BY RAGHU WALDEN ON 10/04/2020 AT 01:11 PM EDT DISCLAIMER : THIS IS A VISIT SUMMARY EXTRACTED FROM THE [employer] CHART. IT IS NOT A COPY OF THE [employer] PROGRESS NOTE. ALISON
== END ==
LOC: M PAIN 11:15
PROVIDERS: ATTEND Nurse Practitioner Family
DX: M96.1 Postlaminectomy syndrome, not elsewhere classified (principal); I10 Essential (primary) hypertension; E78.5 Hyperlipidemia, unspecified; J32.9 Chronic sinusitis, unspecified; J45.909 Unspecified asthma, uncomplicated; M81.0 Age-related osteoporosis without current pathological fracture; Z87.891 Personal history of nicotine dependence; Z79.899 Other long term (current) drug therapy; Z79.891 Long term (current) use of opiate analgesic; Z88.1 Allergy status to other antibiotic agents; Z88.8 Allergy status to other drugs, medicaments and biological substances

== ENCOUNTER → 2020-12-31 | Outpatient (CLI) | payer OTHER ==
--- NOTE | 2021-01-03 04:38 | ECWPNPC ---
PATIENT NAME: SUNI DONATO : 1955 GENDER: MALE VISIT DATE: 12/31/2020 DISCHARGE DATE: 12/31/20 1204 VISIT LOCKED DATE TIME: PHYSICIAN: TYLER VILLATORO PHYSICIAN PAGER NO: ACTIVE RESOURCE: TYLER VILLATORO REASON FOR APPOINTMENT 1. MED MGMNT/UTOX HISTORY OF PRESENT ILLNESS GENERAL: -. FALL RISK SCREENING: SCREENING ONE FALL 12/30/2020 GOING TO THE STAIRS NO MAJOR INJURIES, DID NOT GO THE ER. PAIN SCREENING: PATIENT HAS A COMPLAINT OF ACUTE OR CHRONIC PAIN :YES LOCATION OF PAIN:LOW BACK INTENSITY OF PAIN (SCALE OF 1 TO 10):6 WHAT DOES YOUR PAIN FEEL LIKE:ACHING, BURNING, CONTINOUS, TENDER, THROBBING, SORE, SHOOTING DURATION:CONTINOUS, CONSTANT, ALL DAY PAIN IS INCREASED BY:ACTIVITIES PAIN IS DECREASED BY:USE OF PAIN MEDICATIONS NURSING NOTE: - WAS UNABLE TO VERIFIED PT SOCIAL HISTORY DUE TO COMPUTER PROBLEMS. PAIN CENTER INTAKE QUESTIONS: DO YOU HAVE A HISTORY OF MRSA? :NO DO YOU TAKE A BLOOD THINNERS? :NO DO YOU HAVE ANY BLEEDING DISORDERS? :NO ANY NEW NUMBNESS OR WEAKNESS IN YOUR LEGS OR ARMS? :NO ANY PACEMAKER,DEFIBRILLATOR, OR DORSAL COLUMN STIMULATOR? :NO DO YOU HAVE ANY RASHES OR OPEN SORES? :NO ARE YOU ALLERGIC TO IV DYE? :NO ARE YOU DIABETIC? :NO ANY NEW PROBLEMS WITH YOUR MEDICATIONS? :NO HAVE YOU RECEIVED A VACCINE IN THE PAST 30 DAYS? :YES IF SO WHAT VACCINE AND WHEN? 2ND COVID 09/08/2020 DO YOU PLAN TO RECEIVE A VACCINE IN THE NEXT 21 DAYS? :NO DO YOU NEED ANY PRESCRIPTION? :YES HYDROCODONE-ACETAMINOPHEN 10-325 MG TABLET ,GABAPENTIN 600 MG DO YOU TAKE ANY IMMUNOSUPPRESSIVE MEDICATIONS? :NO IS THERE A CHANCE YOU COULD BE ? :NO ARE YOU BREAST FEEDING? :NO HISTORY OF PRESENT ILLNESS: HERE FOR F/U FOR CHRONIC LBP.HX OF POST LAMINECTOMY PAIN SYNDROME.CHRONIC PAIN MEDICATION USED TO TREAT WORK RELATED INJURY 11-29-1991:HYDROCODONE 10/325 1 Q4-6 PRN MDD6 PRN, AND GABAPENTIN 600MG TID.REPORTS THESE MEDICATIONS ARE HELPFUL AT REDUCING PAIN AND KEEPING HIM FUNCTIONAL.DENIES ADVERSE EFFECTS W MEDICATION.RATING PAIN LEVEL 7/10 VAS. WORSE AREA OF PAIN IS LOW BACK.PAIN IS WORSE IN AM. PAIN THE PATIENT DESCRIBES THE PAIN... THE PATIENT DESCRIBES THE PAIN... THE PATIENT DESCRIBES THE PAIN... THE PATIENT DESCRIBES THE PAIN... THE PATIENT DESCRIBES THE PAIN... THE PATIENT DESCRIBES THE PAIN... THE PATIENT DESCRIBES THE PAIN... THE PATIENT DESCRIBES THE PAIN... THE PATIENT DESCRIBES THE PAIN... THE PATIENT DESCRIBES THE PAIN... THE PATIENT DESCRIBES THE PAIN... CURRENT MEDICATIONS TAKING MAGNESIUM 500 MG CAPSULE 1 CAPSULE ORALLY ONCE A DAY TAKING LOSARTAN POTASSIUM 100 MG TABLET 1 TABLET ORALLY ONCE A DAY TAKING METOPROLOL TARTRATE 50 MG TABLET 1 TABLET ORALLY TWICE A DAY TAKING GEMFIBROZIL 600 MG TABLET 1 TABLET ORALLY ONCE A DAY TAKING VITAMIN D3 5000 UNIT/ML LIQUID 0.1 ML ORALLY ONCE A DAY TAKING MAY USE B-ACTIVE VITAMIN ONCE DAILY TAKING ALENDRONATE SODIUM 70 MG TABLET 1 TABLET 30 MINUTES BEFORE THE FIRST FOOD, BEVERAGE OR MEDICINE OF THE DAY WITH PLAIN WATER ORALLY TAKING LEVETIRACETAM 500 MG TABLET 1 TABLET ORALLY DAILY TAKING ALENDRONATE SODIUM 70 MG TABLET 1 TABLET 30 MINUTES BEFORE THE FIRST FOOD, BEVERAGE OR MEDICINE OF THE DAY WITH PLAIN WATER ORALLY WEEKLY TAKING GEMFIBROZIL 600 MG TABLET 1 TABLET 30 MINUTES BEFORE MORNING AND EVENING MEALS ORALLY TWICE A DAY TAKING CLONIDINE HCL 0.1 MG TABLET 1 TABLET ORALLY ONCE OR TWICE A DAY NEEDED FOR HEADACHE TAKING HYDROCODONE-ACETAMINOPHEN 10-325 MG TABLET 1 TAB ORALLY Q4-6HR PRN MDD6 TAKING GABAPENTIN 600 MG TABLET 2 ORALLY TID NOT-TAKING HYDROCHLOROTHIAZIDE 25 MG TABLET 1 TABLET ORALLY ONCE A DAY NOT-TAKING OMEPRAZOLE 40 MG CAPSULE DELAYED RELEASE 1 CAPSULE ORALLY ONCE A DAY NEEDED NOT-TAKING POTASSIUM CHLORIDE JOSEPH ER 20 MEQ TABLET EXTENDED RELEASE 1 TABLET WITH FOOD ORALLY ONCE A DAY NOT-TAKING AMLODIPINE BESYLATE 10 MG TABLET 1 TABLET ORALLY ONCE A DAY NOT-TAKING ZONISAMIDE 100 MG CAPSULE 1 CAPSULE ORALLY ONCE A DAY NOT-TAKING TOPIRAMATE 50 MG TABLET 1 TABLET ORALLY BID NOT-TAKING METHYLCOBALAMIN 1 MG TABLET CHEWABLE DIRECTED ORALLY NOT-TAKING LIDOCAINE 0.5 % AEROSOL ONE SPRAY TO EACH NOSTRIL 10 MINUTES AFTER AFRIN EXTERNALLY ONCE A DAY X MAX 3D NOT-TAKING AFRIN NASAL SPRAY 0.05 % SOLUTION SPRAYS N EACH NOSTRIL, PRIOR TO LIDOCAINE NASALLY ONCE A DAY X MAX 3D MEDICATION LIST REVIEWED AND RECONCILED WITH THE PATIENT PAST MEDICAL HISTORY HYPERTENSION HYPERLIPIDEMIA LOW BACK PAIN RADICULAR TO LEFT LEG SMOKING CHRONIC SINUSITIS ASTHMA OSTEOPOROSIS BOTOX INJECTIONS ALLERGIES LIPITOR: WEAKNESS, SYNCOPE - SIDE EFFECTS DUST MITES AND RAGWEED: SINUS CONGESTION - ALLERGY DOXYCYCLINE: HANDS/FEET SWELLED AND BLISTERED - ALLERGY OAK, MAPLE AND BIRCH TREES: SINUS CONGESTION - ALLERGY SURGICAL HISTORY LUMBAR DISCECTOMY 1997 FAMILY HISTORY FATHER: , DIAGNOSED WITH OTHER SPECIFIED CONDITIONS INFLUENCING HEALTH STATUS MOTHER: ALIVE, HYPERTENSION MATERNAL GRAND FATHER: , UNSPECIFIED HEART DISEASE, OTHER MALIGNANT NEOPLASM OF UNSPECIFIED SITE 4 BROTHER(S) , 3 SISTER(S) . 2 SON(S) , 1 DAUGHTER(S) - HEALTHY. SISTER - DM. SOCIAL HISTORY DRUG/ALCOHOL: AUDIT TOTAL SCORE:2 INTERPRETATION:ALCOHOL EDUCATION DRUG AND ALCOHOL TOTAL SCORE:0 INTERPRETATION:NO PROBLEMS REPORTED HOSPITALIZATION/MAJOR DIAGNOSTIC PROCEDURE DISCECTOMY 1997 REVIEW OF SYSTEMS CONSTITUTIONAL: ANY RECENT FEVER NO . CHILLS NO . WEIGHT CHANGE OF UNKNOWN REASONS NO . GASTROENTEROLOGY: NEW UNEXPLAINABLE CHANGES IN BOWEL CONTROL NO . CONSTIPATION NO . GENITOURINARY: ANY NEW CHANGE IN BLADDER CONTROL? NO . NEUROLOGY: NEW ONSET DIZZINESS OR NEUROLOGICAL CHANGES NOT MENTIONED NO . NEW NUMBNESS OR PAIN PATTERNS NOT MENTIONED AND PERTINENT TO TODAY'S VISIT NO . CARDIOLOGY: NEW CHEST PRESSURE NO . PATIENT DENIES NO . RESPIRATORY: UNEXPLAINABLE COUGH NO . NEW SHORTNESS OF BREATH NO . VITAL SIGNS WT 147.8 LBS, HT 64.5 IN, BMI 24.98 INDEX, BP 139/69 MM HG, HR 74 /MIN, RR 18 /MIN, TEMP 98.8 F, OXYGEN SAT % 98%, SAFE IN ENV? (Y/N) YES, NA INITIALS AW 1100T.YAQUELIN RYAN. EXAMINATION GENERAL EXAMINATION: GENERALAWAKE,ALERT ,PLEAASANT . PSYCHAFFECT NORMAL . LUNGS:LUNG HOFFMAN ARE CLEAR TO AUSCULTATION BILATERALLY. GOOD MOVEMENT OF AIR . HEART:S1, S2 IN A REGULAR RATE AND RHYTHM. NO SIGNIFICANT MURMURS, RUBS OR GALLOPS NOTED . 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 YES ARE THE PATIENT'S COMPLAINTS CONSISTENT WITH HIS/HER HISTORY OF THE INJURY/ILLNESS? YES IS THE PATIENT'S HISTORY OF THE INJURY/ILLNESS CONSISTENT WITH YOUR OBJECTIVE FINDING? YES WHAT IS THE PERCENTAGE OF TEMPORARY IMPAIRMENT? MODERATE TO MARKED = 66.7% IS THE PATIENT WORKING? NO DOCTOR ON SITE: DAIN SHEETS MD PROCEDURE CODES FA211 ESTABILISHED PATIENT [facility] FACILITY CHARGE DISPOSITION & COMMUNICATION FOLLOW UP 3 MONTHS (REASON: UTOX REVIEW/MED MGMNT) ELECTRONICALLY SIGNED BY RAGHU WALDEN ON 01/02/2021 AT 09:00 AM EDT DISCLAIMER : THIS IS A VISIT SUMMARY EXTRACTED FROM THE [employer] CHART. IT IS NOT A COPY OF THE [employer] PROGRESS NOTE. ALISON
== END ==
LOC: M PAIN 11:00
PROVIDERS: ATTEND Nurse Practitioner Family
DX: M96.1 Postlaminectomy syndrome, not elsewhere classified (principal); I10 Essential (primary) hypertension; E78.5 Hyperlipidemia, unspecified; J45.909 Unspecified asthma, uncomplicated; J32.9 Chronic sinusitis, unspecified; M81.0 Age-related osteoporosis without current pathological fracture; M54.16 Radiculopathy, lumbar region; Z79.891 Long term (current) use of opiate analgesic; Z79.899 Other long term (current) drug therapy; Z88.8 Allergy status to other drugs, medicaments and biological substances

== ENCOUNTER → 2021-04-09 | Outpatient (CLI) | payer OTHER ==
[~2021-04-09] MED LIST changes: +METH-1177 PO; -METH10TA2 PO
== END ==
LOC: M PAIN 10:30
PROVIDERS: ATTEND Anesthesiology
DX: M96.1 Postlaminectomy syndrome, not elsewhere classified (principal); I10 Essential (primary) hypertension; E78.5 Hyperlipidemia, unspecified; J45.909 Unspecified asthma, uncomplicated; Z87.891 Personal history of nicotine dependence; Z79.899 Other long term (current) drug therapy; Z88.8 Allergy status to other drugs, medicaments and biological substances

== ENCOUNTER → 2021-05-07 | Outpatient (CLI) | payer MEDICARE ==
--- NOTE | 2021-05-07 15:55 | REP ---
INDICATION: PVD COMPARISON: None. TECHNIQUE: Real time paul scale and Duplex Doppler evaluation of the bilateral lower extremity arterial vasculature using linear high frequency transducer. FINDINGS: Paul scale and duplex doppler images demonstrate moderate amounts of atheromatous plaquing with areas of mild narrowing but no focal stenosis identified. There is no occlusion. Doppler interrogation demonstrates normal arterial wave forms and velocities bilaterally. RAMBO 1.03 bilaterally. Peak systolic velocities (cm/sec) Common femoral artery: Right 211; Left 130 Profunda femoris: Right 126; Left 120 SFA (proximal): Right 105; Left 106 SFA (mid): Right 82; Left 86 SFA (distal): Right 95; Left 87 Popliteal artery: Right 47; Left 48 CHRISTIANO (prox.): Right 28; Left 35 Tibioperoneal trunk: Right 46; Left 38 BAIT DIGGER (prox.): Right 30; Left 42 BAIT DIGGER (distal): Right 52; Left 58 CHRISTIANO (distal): Right 53; Left 61 IMPRESSION: Moderate atheromatous changes with areas of narrowing but no focal occlusion or stenosis. <Electronically signed by Carlos Paul > 05/07/21 [id number]
== END ==
LOC: M RAD 12:06
PROVIDERS: ATTEND Physician Assistant
DX: I73.9 Peripheral vascular disease, unspecified (principal)

== ENCOUNTER → 2021-05-24 | Outpatient (CLI) | payer OTHER | LOC: M PAIN 13:30 | PROVIDERS: ATTEND Anesthesiology | DX: M96.1 Postlaminectomy syndrome, not elsewhere classified (principal); J45.909 Unspecified asthma, uncomplicated; Z87.891 Personal history of nicotine dependence; Z88.1 Allergy status to other antibiotic agents; Z88.8 Allergy status to other drugs, medicaments and biological substances; Z91.09 Other allergy status, other than to drugs and biological substances; Z79.891 Long term (current) use of opiate analgesic ==

== ENCOUNTER → 2021-11-05 | Outpatient (CLI) | payer OTHER ==
[~2021-11-05] MED LIST changes: +LOSA100T45 PO; -LOSA100T50 PO
== END ==
LOC: M PAIN 11:45
PROVIDERS: ATTEND Nurse Practitioner Family
DX: M96.1 Postlaminectomy syndrome, not elsewhere classified (principal); I10 Essential (primary) hypertension; E78.5 Hyperlipidemia, unspecified; J32.9 Chronic sinusitis, unspecified; J45.909 Unspecified asthma, uncomplicated; M81.0 Age-related osteoporosis without current pathological fracture; M54.16 Radiculopathy, lumbar region; Z87.891 Personal history of nicotine dependence; Z79.891 Long term (current) use of opiate analgesic; Z79.899 Other long term (current) drug therapy; Z88.8 Allergy status to other drugs, medicaments and biological substances

== ENCOUNTER → 2021-12-30 | Outpatient (CLI) | payer MEDICARE | LOC: M RAD 10:21 | DX: R74.8 Abnormal levels of other serum enzymes (principal) ==

== ENCOUNTER → 2022-01-03 | Outpatient (CLI) | payer OTHER | LOC: M PAIN 11:00 | PROVIDERS: ATTEND Nurse Practitioner Family | DX: M96.1 Postlaminectomy syndrome, not elsewhere classified (principal); I10 Essential (primary) hypertension; E78.5 Hyperlipidemia, unspecified; M54.50 Low back pain, unspecified; J32.9 Chronic sinusitis, unspecified; J45.909 Unspecified asthma, uncomplicated; M81.0 Age-related osteoporosis without current pathological fracture; Z87.891 Personal history of nicotine dependence; Z79.891 Long term (current) use of opiate analgesic; Z79.899 Other long term (current) drug therapy; Z88.1 Allergy status to other antibiotic agents; Z88.8 Allergy status to other drugs, medicaments and biological substances ==

== ENCOUNTER 2022-04-02 10:40 | Inpatient (IN) | payer BC, MEDICARE, OTHER ==
[~2022-04-02] VITALS: Ht 162.6 cm; Wt 76.2 kg
[~2022-04-02 10:40] MED LIST changes: -HYDR-4517; +HYDR-4517 PO
[2022-04-02] MEDS ORDERED: NS 1,000 ML IV ONE (11:40)
[2022-04-02 12:06] LABS: HEMATOCRIT 36.2 % (42.0-52.0); HEMOGLOBIN 11.7 g/dl (13.5-17.5); MEAN CORPUSCULAR HEMOGLOBIN 33.1 pg (27.0-33.0); MEAN CORPUSCULAR HGB CONC 32.3 g/dl (32.0-36.5); MEAN CORPUSCULAR VOLUME 102.3 fl (80.0-96.0); PLATELET COUNT, AUTOMATED 219 10^3/uL (150-450); RED BLOOD COUNT 3.54 10^6/uL (4.30-6.10); WHITE BLOOD COUNT 19.6 10^3/uL (4.0-10.0)
[2022-04-02 12:34] LABS: ATYPICAL LYMPH 1 % (0-5); LYMPHOCYTES 3 % (16-44); MONOCYTES 13 % (0-5); NEUTROPHILS 69 % (28-66)
[2022-04-02 12:35] LABS: CRENATED RBC 1+; PLATELET ESTIMATE INCREASED (NORMAL)
[2022-04-02 12:36] LABS: RSV AMPLIFICATION NEGATIVE (NEGATIVE)
[2022-04-02 12:41] LABS: ALBUMIN 2.5 GM/DL (3.2-5.2); BILIRUBIN,DIRECT 0.1 MG/DL (0.0-0.2); BILIRUBIN,TOTAL 0.5 MG/DL (0.2-1.0); CALCIUM LEVEL 7.4 MG/DL (8.8-10.2); GLOMERULAR FILTRATION RATE 7.2 (>49)
[2022-04-02 14:31] LABS: INR 0.89; PROTHROMBIN TIME 12.4 SECONDS (12.7-14.5)
[2022-04-02 14:32] LABS: PARTIAL THROMBOPLASTIN TIME 30.7 SECONDS (25.9-37.0)
[2022-04-02] MEDS: NORCO, ANEXSIA 5/325MG TABLET (HYDROcodone/ACETAMINOPHEN) PO PRN (15:04)
[2022-04-02] MEDS ORDERED: GABA600T4 PO (15:18)
[2022-04-02] MEDS ORDERED: MAGN500C2 PO (15:19)
[2022-04-02] MEDS ORDERED: ASPI81TA26 PO (15:19)
[2022-04-02] MEDS: SODIUM BICARBONATE 150 MEQ in STERILE WATER LITER BAG 1,000 ML IV SCH ×2 (15:20→22:07)
[2022-04-02] MEDS ORDERED: VITATAB73 PO (15:20)
[2022-04-02] MEDS ORDERED: HOME MED LIST COMPLETE! XX SCH (15:20)
[2022-04-02] MEDS ORDERED: ALBUTEROL SULFATE 2.5 MG/0.5 ML INH NEB SOLN NEB PRN (18:25)
[2022-04-02 20:00] VITALS: BP 101/65
[2022-04-02] MEDS: HEPARIN SOD (PORCINE) 5000UNITS/ML 1ML VIAL/SYRINGE SQ SCH (20:11)
[2022-04-02] MEDS ORDERED: GABAPENTIN 300 MG CAP PO SCH (21:00)
[2022-04-02] MEDS: FIDAXOMICIN 200 MG TAB (DIFICID) PO SCH (21:08)
[2022-04-03] VITALS: BP 113/69
[2022-04-03 04:00] VITALS: BP 118/57
[2022-04-03] MEDS: SODIUM BICARBONATE 150 MEQ in STERILE WATER LITER BAG 1,000 ML IV SCH (05:29)
[2022-04-03 05:56] LABS: BASO % 0.2 % (0.0-1.0); EOS % 0.1 % (0.0-3.0); HEMOGLOBIN 9.7 g/dl (13.5-17.5); LYMPH # 0.7 10^3/uL (1.5-5.0); LYMPH % 5.3 % (24.0-44.0); MEAN CORPUSCULAR HEMOGLOBIN 33.1 pg (27.0-33.0); MEAN CORPUSCULAR HGB CONC 33.4 g/dl (32.0-36.5); MONO % 14.1 % (2.0-8.0); NEUTROPHILS # 10.4 10^3/uL (1.5-8.5); NEUTROPHILS % 79.1 % (36.0-66.0); PLATELET COUNT, AUTOMATED 219 10^3/uL (150-450); RED BLOOD COUNT 2.93 10^6/uL (4.30-6.10); WHITE BLOOD COUNT 13.2 10^3/uL (4.0-10.0)
[2022-04-03 06:02] LABS: MONO # 1.9 10^3/uL (0.0-0.8)
[2022-04-03 06:19] LABS: CALCIUM LEVEL 6.6 MG/DL (8.8-10.2); CREATININE FOR GFR 5.48 MG/DL (0.70-1.30); GLOMERULAR FILTRATION RATE 11.1 (>49); MAGNESIUM LEVEL 1.8 MG/DL (1.8-2.4); POTASSIUM SERUM 4.5 MEQ/L (3.5-5.1)
[2022-04-03 08:00] VITALS: BP 128/60
[2022-04-03] MEDS: HEPARIN SOD (PORCINE) 5000UNITS/ML 1ML VIAL/SYRINGE SQ SCH ×2 (09:41→20:18)
[2022-04-03] MEDS: levETIRAcetam 250MG TABLET (KEPPRA) PO SCH (09:41)
[2022-04-03] MEDS: FIDAXOMICIN 200 MG TAB (DIFICID) PO SCH ×2 (09:41→20:18)
[2022-04-03] MEDS: CALCIUM CARBONATE 500 MG CHEW U/D PO SCH ×3 (10:08→20:17)
[2022-04-03] MEDS: SODIUM BICARBONATE 75 MEQ in NS 0.45% 1,000 ML IV SCH ×2 (11:27→17:56)
[2022-04-03 12:00] VITALS: BP 141/68
[2022-04-03 20:00] VITALS: BP 125/67
[2022-04-03] MEDS: NORCO, ANEXSIA 5/325MG TABLET (HYDROcodone/ACETAMINOPHEN) PO PRN (20:19)
[2022-04-04] VITALS (11 sets, daily range): BP systolic 127–177; BP diastolic 67–86
[2022-04-04] MEDS: SODIUM BICARBONATE 75 MEQ in NS 0.45% 1,000 ML IV SCH (01:59)
[2022-04-04 05:58] LABS: BASO % 0.3 % (0.0-1.0); EOS % 0.3 % (0.0-3.0); HEMATOCRIT 29.8 % (42.0-52.0); HEMOGLOBIN 10.1 g/dl (13.5-17.5); LYMPH # 0.5 10^3/uL (1.5-5.0); MEAN CORPUSCULAR HEMOGLOBIN 32.8 pg (27.0-33.0); MEAN CORPUSCULAR HGB CONC 33.9 g/dl (32.0-36.5); MEAN CORPUSCULAR VOLUME 96.8 fl (80.0-96.0); MONO # 1.1 10^3/uL (0.0-0.8); MONO % 13.2 % (2.0-8.0); NEUTROPHILS # 6.3 10^3/uL (1.5-8.5); NEUTROPHILS % 78.9 % (36.0-66.0); PLATELET COUNT, AUTOMATED 252 10^3/uL (150-450); RED BLOOD COUNT 3.08 10^6/uL (4.30-6.10)
[2022-04-04] MEDS ORDERED: POTASSIUM CHLORIDE 10MEQ SR TABLET PO SCH (06:00)
[2022-04-04 06:35] LABS: CALCIUM LEVEL 6.6 MG/DL (8.8-10.2); CREATININE FOR GFR 2.5 MG/DL (0.70-1.30); GLOMERULAR FILTRATION RATE 27.4 (>49); MAGNESIUM LEVEL 1.6 MG/DL (1.8-2.4); POTASSIUM SERUM 2.9 MEQ/L (3.5-5.1)
[2022-04-04] MEDS ORDERED: POTASSIUM CHLORIDE 10% LIQ 20 MEQ/15 ML UDC PO ONE (07:00)
[2022-04-04] MEDS: MAG SULF 1GM/100ML (MAG RUN) 1 GM in IV 1 EA IV SCH ×2 (07:55→09:05)
[2022-04-04] MEDS: HEPARIN SOD (PORCINE) 5000UNITS/ML 1ML VIAL/SYRINGE SQ SCH ×2 (09:04→20:36)
[2022-04-04] MEDS: NORCO, ANEXSIA 5/325MG TABLET (HYDROcodone/ACETAMINOPHEN) PO PRN ×4 (09:04→23:08)
[2022-04-04] MEDS: levETIRAcetam 250MG TABLET (KEPPRA) PO SCH (09:04)
[2022-04-04] MEDS: FIDAXOMICIN 200 MG TAB (DIFICID) PO SCH ×2 (09:05→20:34)
[2022-04-04] MEDS: GABAPENTIN 300 MG CAP PO SCH (10:32)
[2022-04-04] MEDS: KCL 40MEQ in NS 1000ML 1,000 ML IV SCH ×2 (10:33→19:54)
[2022-04-04] MEDS: CALCIUM GLUCONATE 1,000 MG in D5W MINI-BAG PLUS 100 ML IV SCH ×2 (11:14→12:24)
[2022-04-04] MEDS: KCL 10MEQ/100ML SWI (KRUN) 10 MEQ in IV 1 EA IV SCH ×2 (11:35→12:57)
[2022-04-04] MEDS: PIPERACILLIN/TAZOBACTAM SOD 2.25 GM in D5W MINI-BAG PLUS 50 ML IV SCH ×2 (12:59→19:26)
[2022-04-04] MEDS: metroNIDAZOLE 500 MG in IV 1 EA IV SCH ×2 (14:05→20:36)
[2022-04-04 15:26] LABS: CALCIUM LEVEL 7.2 MG/DL (8.8-10.2); CREATININE FOR GFR 1.84 MG/DL (0.70-1.30); MAGNESIUM LEVEL 2.1 MG/DL (1.8-2.4); PHOSPHORUS LEVEL 2.2 MG/DL (2.5-4.9); POTASSIUM SERUM 3.5 MEQ/L (3.5-5.1)
[2022-04-04] MEDS ORDERED: CALCIUM CARBONATE 500 MG CHEW U/D PO SCH (16:00)
[2022-04-04] MEDS ORDERED: LIDOCAINE 1% SDV 30ML VIAL As Ordered ONE (17:17)
[2022-04-04] MEDS ORDERED: BUPIVACAINE HCL 0.25% 30ML VIAL As Ordered ONE (17:17)
[2022-04-04] MEDS ORDERED: ACETAMINOPHEN 1000MG 100ML IV BAG As Ordered ONE (18:03)
[2022-04-04] MEDS ORDERED: DESFLURANE 240 ML INHALANT As Ordered ONE (18:03)
[2022-04-04] MEDS ORDERED: ROCURONIUM BROMIDE 50 MG/5 ML VIAL As Ordered ONE (18:03)
[2022-04-04] MEDS ORDERED: MIDAZOLAM INJ 2MG/2ML VIAL (J2250 PER 1MG) As Ordered ONE (18:03)
[2022-04-04] MEDS ORDERED: propofoL 200 MG/20 ML VIAL As Ordered ONE (18:03)
[2022-04-04] MEDS ORDERED: ONDANSETRON 4MG 2ML VIAL As Ordered ONE (18:03)
[2022-04-04] MEDS ORDERED: METOCLOPRAMIDE INJ 10MG/2ML VIAL (J2765 PER 1) As Ordered ONE (18:03)
[2022-04-04] MEDS ORDERED: dexameTHASONE 4 MG/ML 1ML VIAL (J1100 PER 1MG) As Ordered ONE (18:03)
[2022-04-04] MEDS ORDERED: LIDOCAINE 2% 100MG/5ML SDV (FOR ANES.) As Ordered ONE (18:03)
[2022-04-04] MEDS ORDERED: SUGAMMADEX SODIUM 500 MG/5 ML VIAL (BRIDION) As Ordered ONE (18:03)
[2022-04-04] MEDS ORDERED: fentaNYL 250 MCG/5 ML INJECTION As Ordered ONE (18:03)
[2022-04-04] MEDS ORDERED: HYDROmorphone HCL 2MG/ML 1ML VIAL As Ordered ONE (18:03)
[2022-04-04] MEDS ORDERED: SUCCINYLCHOLINE 100 MG/5 ML SYRINGE (J0330) As Ordered ONE (18:16)
[2022-04-04] MEDS ORDERED: fentaNYL 100 MCG/2 ML INJECTION IV PRN (19:10)
[2022-04-04] MEDS ORDERED: oxyCODONE 5MG TAB PO PRN (19:10)
[2022-04-04] MEDS ORDERED: LR 1,000 ML IV SCH (19:10)
[2022-04-04] MEDS ORDERED: ONDANSETRON 4MG 2ML VIAL IV PRN (19:10)
[2022-04-04] MEDS: prednisoLONE ACET 1% OPHTH SUSP 5ML OS SCH (20:36)
[2022-04-05] VITALS (7 sets, daily range): BP systolic 113–172; BP diastolic 59–80
[2022-04-05] MEDS: PIPERACILLIN/TAZOBACTAM SOD 2.25 GM in D5W MINI-BAG PLUS 50 ML IV SCH ×4 (00:52→18:30)
[2022-04-05 05:10] LABS: BASO % 0.1 % (0.0-1.0); HEMATOCRIT 30.1 % (42.0-52.0); LYMPH # 0.2 10^3/uL (1.5-5.0); LYMPH % 2.2 % (24.0-44.0); MEAN CORPUSCULAR HEMOGLOBIN 32.3 pg (27.0-33.0); MEAN CORPUSCULAR HGB CONC 33.2 g/dl (32.0-36.5); MEAN CORPUSCULAR VOLUME 97.1 fl (80.0-96.0); MONO # 0.4 10^3/uL (0.0-0.8); MONO % 5.4 % (2.0-8.0); NEUTROPHILS # 6.1 10^3/uL (1.5-8.5); NEUTROPHILS % 91.3 % (36.0-66.0); PLATELET COUNT, AUTOMATED 241 10^3/uL (150-450); WHITE BLOOD COUNT 6.7 10^3/uL (4.0-10.0)
[2022-04-05] MEDS: NORCO, ANEXSIA 5/325MG TABLET (HYDROcodone/ACETAMINOPHEN) PO PRN ×2 (05:34→16:56)
[2022-04-05 05:47] LABS: CALCIUM LEVEL 6.9 MG/DL (8.8-10.2); CREATININE FOR GFR 1.44 MG/DL (0.70-1.30); GLOMERULAR FILTRATION RATE 51.8 (>49); MAGNESIUM LEVEL 1.7 MG/DL (1.8-2.4); POTASSIUM SERUM 4.1 MEQ/L (3.5-5.1)
[2022-04-05] MEDS: KCL 40MEQ in NS 1000ML 1,000 ML IV SCH ×2 (06:24→16:57)
[2022-04-05] MEDS: metroNIDAZOLE 500 MG in IV 1 EA IV SCH ×3 (06:25→20:35)
[2022-04-05] MEDS: FIDAXOMICIN 200 MG TAB (DIFICID) PO SCH ×2 (09:09→20:35)
[2022-04-05] MEDS: GABAPENTIN 300 MG CAP PO SCH (09:09)
[2022-04-05] MEDS: HEPARIN SOD (PORCINE) 5000UNITS/ML 1ML VIAL/SYRINGE SQ SCH ×2 (09:10→20:35)
[2022-04-05] MEDS: levETIRAcetam 250MG TABLET (KEPPRA) PO SCH (09:11)
[2022-04-05] MEDS: CALCIUM GLUCONATE 1,000 MG in D5W MINI-BAG PLUS 100 ML IV SCH ×2 (09:11→10:30)
[2022-04-05] MEDS: prednisoLONE ACET 1% OPHTH SUSP 5ML OS SCH ×3 (09:11→20:35)
[2022-04-05] MEDS ORDERED: MAG SULF 1GM/100ML (MAG RUN) 1 GM in IV 1 EA IV ONE (11:00)
[2022-04-06] VITALS: BP 129/69
[2022-04-06] MEDS: PIPERACILLIN/TAZOBACTAM SOD 2.25 GM in D5W MINI-BAG PLUS 50 ML IV SCH ×4 (00:07→18:32)
[2022-04-06] MEDS: KCL 40MEQ in NS 1000ML 1,000 ML IV SCH ×2 (02:21→11:01)
[2022-04-06 04:00] VITALS: BP 122/72
[2022-04-06] MEDS: metroNIDAZOLE 500 MG in IV 1 EA IV SCH ×3 (05:09→21:36)
[2022-04-06] MEDS: NORCO, ANEXSIA 5/325MG TABLET (HYDROcodone/ACETAMINOPHEN) PO PRN ×2 (05:20→15:07)
[2022-04-06 07:13] LABS: BASO % 0.3 % (0.0-1.0); EOS % 0.4 % (0.0-3.0); HEMATOCRIT 29.4 % (42.0-52.0); HEMOGLOBIN 9.6 g/dl (13.5-17.5); LYMPH # 0.6 10^3/uL (1.5-5.0); LYMPH % 7.6 % (24.0-44.0); MEAN CORPUSCULAR HEMOGLOBIN 32.8 pg (27.0-33.0); MEAN CORPUSCULAR HGB CONC 32.7 g/dl (32.0-36.5); MEAN CORPUSCULAR VOLUME 100.3 fl (80.0-96.0); MONO # 0.8 10^3/uL (0.0-0.8); MONO % 9.5 % (2.0-8.0); NEUTROPHILS # 6.3 10^3/uL (1.5-8.5); NEUTROPHILS % 79.1 % (36.0-66.0); PLATELET COUNT, AUTOMATED 243 10^3/uL (150-450); RED BLOOD COUNT 2.93 10^6/uL (4.30-6.10)
[2022-04-06 07:57] LABS: CALCIUM LEVEL 6.7 MG/DL (8.8-10.2); CREATININE FOR GFR 1.29 MG/DL (0.70-1.30); GLOMERULAR FILTRATION RATE 58.8 (>49); MAGNESIUM LEVEL 1.4 MG/DL (1.8-2.4)
[2022-04-06 08:00] VITALS: BP 133/64
[2022-04-06] MEDS: FIDAXOMICIN 200 MG TAB (DIFICID) PO SCH ×2 (08:09→21:35)
[2022-04-06] MEDS: GABAPENTIN 300 MG CAP PO SCH (08:09)
[2022-04-06] MEDS: levETIRAcetam 250MG TABLET (KEPPRA) PO SCH (08:09)
[2022-04-06] MEDS: HEPARIN SOD (PORCINE) 5000UNITS/ML 1ML VIAL/SYRINGE SQ SCH ×2 (08:09→21:35)
[2022-04-06] MEDS: prednisoLONE ACET 1% OPHTH SUSP 5ML OS SCH ×3 (08:09→21:35)
[2022-04-06] MEDS: MAG SULF 1GM/100ML (MAG RUN) 1 GM in IV 1 EA IV SCH ×2 (11:01→12:40)
[2022-04-06 11:18] LABS: ALBUMIN 1.8 GM/DL (3.2-5.2); BILIRUBIN,DIRECT 0.2 MG/DL (0.0-0.2); BILIRUBIN,TOTAL 0.2 MG/DL (0.2-1.0); PHOSPHORUS LEVEL 1.2 MG/DL (2.5-4.9); TOTAL PROTEIN 4.4 GM/DL (6.4-8.2)
[2022-04-06 12:00] VITALS: BP 130/65
[2022-04-06] MEDS: CALCIUM GLUCONATE 1,000 MG in D5W MINI-BAG PLUS 100 ML IV SCH ×2 (13:43→15:07)
[2022-04-06 16:00] VITALS: BP 142/65
[2022-04-06] MEDS ORDERED: SODIUM PHOSPHATE INJ 30 MMOL in D5W 500 ML IV ONE (17:00)
[2022-04-06 20:00] VITALS: BP 159/72
[2022-04-06] MEDS: PERCOCET 5MG/325MG TAB PO PRN (22:13)
[2022-04-07] VITALS: BP 141/71
[2022-04-07] MEDS: PIPERACILLIN/TAZOBACTAM SOD 2.25 GM in D5W MINI-BAG PLUS 50 ML IV SCH ×4 (00:51→19:09)
[2022-04-07 04:00] VITALS: BP 180/98
[2022-04-07] MEDS: metroNIDAZOLE 500 MG in IV 1 EA IV SCH ×3 (05:07→21:06)
[2022-04-07] MEDS: PERCOCET 5MG/325MG TAB PO PRN ×3 (05:08→22:11)
[2022-04-07 06:13] LABS: BASO # 0.1 10^3/uL (0.0-0.2); BASO % 0.9 % (0.0-1.0); EOS # 0.1 10^3/uL (0.0-0.5); EOS % 1.1 % (0.0-3.0); HEMATOCRIT 31.4 % (42.0-52.0); HEMOGLOBIN 10.3 g/dl (13.5-17.5); LYMPH # 0.8 10^3/uL (1.5-5.0); LYMPH % 9.6 % (24.0-44.0); MEAN CORPUSCULAR HEMOGLOBIN 32.8 pg (27.0-33.0); MEAN CORPUSCULAR HGB CONC 32.8 g/dl (32.0-36.5); MONO # 0.8 10^3/uL (0.0-0.8); MONO % 10.2 % (2.0-8.0); NEUTROPHILS # 5.9 10^3/uL (1.5-8.5); PLATELET COUNT, AUTOMATED 212 10^3/uL (150-450); RED BLOOD COUNT 3.14 10^6/uL (4.30-6.10)
[2022-04-07] MEDS: KCL 40MEQ in NS 1000ML 1,000 ML IV SCH (06:22)
[2022-04-07 06:49] LABS: BLOOD UREA NITROGEN 17 MG/DL (7-18); CALCIUM LEVEL 6.9 MG/DL (8.8-10.2); CARBON DIOXIDE LEVEL 23 MEQ/L (21-32); CHLORIDE LEVEL 113 MEQ/L (98-107); CREATININE FOR GFR 1.09 MG/DL (0.70-1.30); GLOMERULAR FILTRATION RATE > 60.0 (>49); GLUCOSE, FASTING 120 MG/DL (70-100); MAGNESIUM LEVEL 1.4 MG/DL (1.8-2.4); SODIUM LEVEL 143 MEQ/L (136-145)
[2022-04-07 07:48] LABS: PHOSPHORUS LEVEL 2.2 MG/DL (2.5-4.9)
[2022-04-07 08:00] VITALS: BP 156/72
[2022-04-07] MEDS: MAG SULF 1GM/100ML (MAG RUN) 1 GM in IV 1 EA IV SCH ×3 (08:52→10:18)
[2022-04-07] MEDS: levETIRAcetam 250MG TABLET (KEPPRA) PO SCH (08:54)
[2022-04-07] MEDS: GABAPENTIN 300 MG CAP PO SCH ×3 (08:54→20:21)
[2022-04-07] MEDS: FIDAXOMICIN 200 MG TAB (DIFICID) PO SCH ×2 (08:54→20:21)
[2022-04-07] MEDS: prednisoLONE ACET 1% OPHTH SUSP 5ML OS SCH ×3 (08:55→20:21)
[2022-04-07] MEDS: HEPARIN SOD (PORCINE) 5000UNITS/ML 1ML VIAL/SYRINGE SQ SCH ×2 (08:55→20:21)
[2022-04-07] MEDS ORDERED: PERCOCET 5MG/325MG TAB PO PRN (10:30)
[2022-04-07 12:00] VITALS: BP 142/65
[2022-04-07] MEDS ORDERED: SODIUM PHOSPHATE INJ 30 MMOL in D5W 500 ML IV ONE (14:00)
[2022-04-07 16:00] VITALS: BP 176/77
[2022-04-07 20:00] VITALS: BP 160/74
[2022-04-08] VITALS (7 sets, daily range): BP systolic 114–164; BP diastolic 60–79
[2022-04-08] MEDS: PIPERACILLIN/TAZOBACTAM SOD 2.25 GM in D5W MINI-BAG PLUS 50 ML IV SCH ×2 (00:27→06:51)
[2022-04-08] MEDS: metroNIDAZOLE 500 MG in IV 1 EA IV SCH ×3 (05:41→22:19)
[2022-04-08] MEDS: PERCOCET 5MG/325MG TAB PO PRN ×5 (05:53→22:21)
[2022-04-08 06:17] LABS: BASO # 0.1 10^3/uL (0.0-0.2); BASO % 0.6 % (0.0-1.0); EOS # 0.1 10^3/uL (0.0-0.5); EOS % 0.9 % (0.0-3.0); HEMATOCRIT 34.4 % (42.0-52.0); HEMOGLOBIN 11.2 g/dl (13.5-17.5); LYMPH # 1.1 10^3/uL (1.5-5.0); LYMPH % 11.2 % (24.0-44.0); MEAN CORPUSCULAR HEMOGLOBIN 32.1 pg (27.0-33.0); MEAN CORPUSCULAR HGB CONC 32.6 g/dl (32.0-36.5); MEAN CORPUSCULAR VOLUME 98.6 fl (80.0-96.0); MONO # 1.3 10^3/uL (0.0-0.8); MONO % 12.5 % (2.0-8.0); NEUTROPHILS # 7.1 10^3/uL (1.5-8.5); NEUTROPHILS % 70.3 % (36.0-66.0); PLATELET COUNT, AUTOMATED 219 10^3/uL (150-450); RED BLOOD COUNT 3.49 10^6/uL (4.30-6.10); WHITE BLOOD COUNT 10.1 10^3/uL (4.0-10.0)
[2022-04-08 06:51] LABS: BLOOD UREA NITROGEN 12 MG/DL (7-18); CALCIUM LEVEL 7.1 MG/DL (8.8-10.2); CARBON DIOXIDE LEVEL 23 MEQ/L (21-32); CHLORIDE LEVEL 110 MEQ/L (98-107); CREATININE FOR GFR 1.04 MG/DL (0.70-1.30); GLOMERULAR FILTRATION RATE > 60.0 (>49); GLUCOSE, FASTING 104 MG/DL (70-100); MAGNESIUM LEVEL 1.7 MG/DL (1.8-2.4); PHOSPHORUS LEVEL 2.8 MG/DL (2.5-4.9); POTASSIUM SERUM 3.6 MEQ/L (3.5-5.1); SODIUM LEVEL 141 MEQ/L (136-145)
[2022-04-08] MEDS ORDERED: MAG SULF 1GM/100ML (MAG RUN) 1 GM in IV 1 EA IV ONE (08:00)
[2022-04-08] MEDS: levETIRAcetam 250MG TABLET (KEPPRA) PO SCH (08:14)
[2022-04-08] MEDS: FIDAXOMICIN 200 MG TAB (DIFICID) PO SCH ×2 (08:15→20:20)
[2022-04-08] MEDS: prednisoLONE ACET 1% OPHTH SUSP 5ML OS SCH ×2 (08:15→20:21)
[2022-04-08] MEDS: HEPARIN SOD (PORCINE) 5000UNITS/ML 1ML VIAL/SYRINGE SQ SCH ×2 (08:15→20:21)
[2022-04-08] MEDS: GABAPENTIN 300 MG CAP PO SCH ×3 (08:15→20:20)
[2022-04-08] MEDS ORDERED: METOPROLOL TART 50 MG TAB PO SCH ×2 (09:00→12:20)
[2022-04-08] MEDS: LOSARTAN 50MG TABLET PO SCH (12:55)
[2022-04-08] MEDS: PIPERACILLIN/TAZOBACTAM SOD 3.375 GM in D5W MINI-BAG PLUS 50 ML IV SCH ×2 (13:21→18:32)
[2022-04-08] MEDS: METOPROLOL TART 50 MG TAB PO SCH (20:20)
[2022-04-09] VITALS: BP 126/60
[2022-04-09] MEDS: PIPERACILLIN/TAZOBACTAM SOD 3.375 GM in D5W MINI-BAG PLUS 50 ML IV SCH (01:18)
[2022-04-09] MEDS: PERCOCET 5MG/325MG TAB PO PRN ×3 (01:22→10:11)
[2022-04-09 04:39] VITALS: BP 109/65
[2022-04-09] MEDS: metroNIDAZOLE 500 MG in IV 1 EA IV SCH (05:39)
[2022-04-09 06:14] LABS: BASO # 0.1 10^3/uL (0.0-0.2); BASO % 0.8 % (0.0-1.0); EOS # 0.1 10^3/uL (0.0-0.5); EOS % 0.9 % (0.0-3.0); HEMOGLOBIN 10.4 g/dl (13.5-17.5); LYMPH # 1.3 10^3/uL (1.5-5.0); LYMPH % 13.3 % (24.0-44.0); MEAN CORPUSCULAR HEMOGLOBIN 32.6 pg (27.0-33.0); MEAN CORPUSCULAR HGB CONC 32.5 g/dl (32.0-36.5); MEAN CORPUSCULAR VOLUME 100.3 fl (80.0-96.0); MONO # 1.3 10^3/uL (0.0-0.8); MONO % 13.1 % (2.0-8.0); NEUTROPHILS # 6.8 10^3/uL (1.5-8.5); NEUTROPHILS % 67.8 % (36.0-66.0); PLATELET COUNT, AUTOMATED 202 10^3/uL (150-450); RED BLOOD COUNT 3.19 10^6/uL (4.30-6.10)
[2022-04-09 06:41] LABS: BLOOD UREA NITROGEN 11 MG/DL (7-18); CALCIUM LEVEL 6.7 MG/DL (8.8-10.2); CARBON DIOXIDE LEVEL 22 MEQ/L (21-32); CHLORIDE LEVEL 113 MEQ/L (98-107); CREATININE FOR GFR 0.94 MG/DL (0.70-1.30); GLOMERULAR FILTRATION RATE > 60.0 (>49); GLUCOSE, FASTING 100 MG/DL (70-100); MAGNESIUM LEVEL 1.5 MG/DL (1.8-2.4); POTASSIUM SERUM 3.4 MEQ/L (3.5-5.1); SODIUM LEVEL 143 MEQ/L (136-145)
[2022-04-09] MEDS ORDERED: POTASSIUM CHLORIDE 10MEQ SR TABLET PO ONE (07:50)
[2022-04-09 08:00] VITALS: BP 118/70
[2022-04-09] MEDS ORDERED: MAG SULF 1GM/100ML (MAG RUN) 1 GM in IV 1 EA IV ONE (08:00)
[2022-04-09 08:53] LABS: VITAMIN B12 LEVEL > 2000 PG/ML (247-911)
[2022-04-09] MEDS: HEPARIN SOD (PORCINE) 5000UNITS/ML 1ML VIAL/SYRINGE SQ SCH (09:04)
[2022-04-09] MEDS: FIDAXOMICIN 200 MG TAB (DIFICID) PO SCH (09:04)
[2022-04-09] MEDS: GABAPENTIN 300 MG CAP PO SCH (09:04)
[2022-04-09] MEDS: levETIRAcetam 250MG TABLET (KEPPRA) PO SCH (09:05)
[2022-04-09] MEDS: prednisoLONE ACET 1% OPHTH SUSP 5ML OS SCH (09:07)
[2022-04-09] MEDS: LOSARTAN 50MG TABLET PO SCH (09:08)
[2022-04-09] MEDS: METOPROLOL TART 50 MG TAB PO SCH (09:08)
[2022-04-09] MEDS ORDERED: MAGNESIUM OXIDE 400MG TAB (MAG-OX) PO ONE (10:00)
[2022-04-09] MEDS ORDERED: GABA-282 PO (11:45)
[2022-04-09] MEDS ORDERED: FIDA200TA PO (11:45)
[2022-04-09] MEDS ORDERED: FLUBLOK(EGG FREE)(QUAD)INFLUENZA VACC 0.5ML SYRINGE 18YRS & OLDER IM.IMMUN ONE (11:50)
[2022-04-10] MEDS ORDERED: VANC125C3 PO (16:43)
== END 2022-04-09 14:52 | disposition home or self-care (01) | DRG 356 ==
LOC: M ED 10:40 → M ED INP 14:11 → ENRESERV 15:31 → M ICU 19:54 → M PCU 04-09 01:10
PROVIDERS: ADMIT Internal Medicine Nephrology; ATTEND Internal Medicine Nephrology
PROC: 0WJG4ZZ Inspection of Peritoneal Cavity, Percutaneous Endoscopic Approach (ICD-10-PCS; principal; 2022-04-04 15:00)
DX: A04.72 Enterocolitis due to Clostridium difficile, not specified as recurrent (principal); G93.41 Metabolic encephalopathy; E87.2 Acidosis; N17.9 Acute kidney failure, unspecified; R18.8 Other ascites; E86.0 Dehydration; M54.50 Low back pain, unspecified; M54.2 Cervicalgia; I10 Essential (primary) hypertension; E78.5 Hyperlipidemia, unspecified; J45.909 Unspecified asthma, uncomplicated; M51.36 Other intervertebral disc degeneration, lumbar region; M50.30 Other cervical disc degeneration, unspecified cervical region; M81.0 Age-related osteoporosis without current pathological fracture; G89.29 Other chronic pain; E87.6 Hypokalemia; E83.51 Hypocalcemia; E83.42 Hypomagnesemia; Z79.899 Other long term (current) drug therapy; Z86.16 Personal history of COVID-19; Z88.1 Allergy status to other antibiotic agents

== ENCOUNTER → 2022-06-13 | Outpatient (CLI) | payer OTHER ==
[~2022-06-13] MED LIST changes: +ASPI81TA26 PO; +FIDA200TA PO; +GABA-282 PO; +GABA600T4 PO; +MAGN500C2 PO; +VANC125C3 PO; +VITATAB73 PO
== END ==
LOC: M PAIN 14:45
PROVIDERS: ATTEND Anesthesiology
DX: M96.1 Postlaminectomy syndrome, not elsewhere classified (principal); I10 Essential (primary) hypertension; E78.5 Hyperlipidemia, unspecified; J45.909 Unspecified asthma, uncomplicated; M81.0 Age-related osteoporosis without current pathological fracture; R51.9 Headache, unspecified; M54.16 Radiculopathy, lumbar region; Z86.16 Personal history of COVID-19; Z87.891 Personal history of nicotine dependence; Z79.891 Long term (current) use of opiate analgesic; Z79.899 Other long term (current) drug therapy; Z88.8 Allergy status to other drugs, medicaments and biological substances; Z91.048 Other nonmedicinal substance allergy status

== ENCOUNTER → 2022-07-09 | Outpatient (CLI) | payer OTHER | LOC: M PAIN 09:45 → M TMPAIN 09:45 | PROVIDERS: ATTEND Anesthesiology | DX: M96.1 Postlaminectomy syndrome, not elsewhere classified (principal); M51.16 Intervertebral disc disorders with radiculopathy, lumbar region; G89.29 Other chronic pain; I10 Essential (primary) hypertension; J45.909 Unspecified asthma, uncomplicated; Z87.891 Personal history of nicotine dependence; Z88.8 Allergy status to other drugs, medicaments and biological substances; Z91.09 Other allergy status, other than to drugs and biological substances; Z79.82 Long term (current) use of aspirin; Z79.899 Other long term (current) drug therapy ==

== ENCOUNTER → 2022-08-06 | Outpatient (CLI) | payer OTHER | LOC: M PAIN 15:15 | PROVIDERS: ATTEND Anesthesiology | DX: M96.1 Postlaminectomy syndrome, not elsewhere classified (principal); G89.29 Other chronic pain; I10 Essential (primary) hypertension; J45.909 Unspecified asthma, uncomplicated; Z87.891 Personal history of nicotine dependence; Z88.1 Allergy status to other antibiotic agents; Z88.8 Allergy status to other drugs, medicaments and biological substances; Z91.09 Other allergy status, other than to drugs and biological substances; Z79.82 Long term (current) use of aspirin; Z79.899 Other long term (current) drug therapy ==

== ENCOUNTER → 2022-08-25 | Outpatient (CLI) | payer OTHER | LOC: M PAIN 13:45 | PROVIDERS: ATTEND Nurse Practitioner Family | DX: M96.1 Postlaminectomy syndrome, not elsewhere classified (principal); G89.29 Other chronic pain; I10 Essential (primary) hypertension; J45.909 Unspecified asthma, uncomplicated; Z87.891 Personal history of nicotine dependence; Z88.1 Allergy status to other antibiotic agents; Z88.8 Allergy status to other drugs, medicaments and biological substances; Z91.09 Other allergy status, other than to drugs and biological substances; Z79.82 Long term (current) use of aspirin; Z79.899 Other long term (current) drug therapy ==

== ENCOUNTER → 2022-09-03 | Outpatient (CLI) | payer OTHER | LOC: M PAIN 13:30 | PROVIDERS: ATTEND Anesthesiology | DX: M96.1 Postlaminectomy syndrome, not elsewhere classified (principal); I10 Essential (primary) hypertension; E78.5 Hyperlipidemia, unspecified; M54.16 Radiculopathy, lumbar region; J32.9 Chronic sinusitis, unspecified; M81.0 Age-related osteoporosis without current pathological fracture; J30.89 Other allergic rhinitis; Z86.16 Personal history of COVID-19; Z98.41 Cataract extraction status, right eye; Z98.42 Cataract extraction status, left eye; Z87.891 Personal history of nicotine dependence; Z79.82 Long term (current) use of aspirin; Z79.891 Long term (current) use of opiate analgesic; Z79.899 Other long term (current) drug therapy; Z88.1 Allergy status to other antibiotic agents; Z88.8 Allergy status to other drugs, medicaments and biological substances ==

== ENCOUNTER → 2022-11-05 | Outpatient (CLI) | payer OTHER ==
[~2022-11-05] MED LIST changes: -LOSA100T45 PO; +LOSA100T46 PO
== END ==
LOC: M PAIN 08:45
PROVIDERS: ATTEND Anesthesiology
DX: M96.1 Postlaminectomy syndrome, not elsewhere classified (principal); I10 Essential (primary) hypertension; E78.5 Hyperlipidemia, unspecified; M54.16 Radiculopathy, lumbar region; J45.909 Unspecified asthma, uncomplicated; M81.0 Age-related osteoporosis without current pathological fracture; Z87.891 Personal history of nicotine dependence; Z79.891 Long term (current) use of opiate analgesic; Z79.899 Other long term (current) drug therapy; Z79.82 Long term (current) use of aspirin; Z88.8 Allergy status to other drugs, medicaments and biological substances

== ENCOUNTER → 2023-01-06 | Outpatient (CLI) | payer OTHER | LOC: M PAIN 10:30 | PROVIDERS: ATTEND Nurse Practitioner Family | DX: M96.1 Postlaminectomy syndrome, not elsewhere classified (principal); Z79.891 Long term (current) use of opiate analgesic; I10 Essential (primary) hypertension; E78.5 Hyperlipidemia, unspecified; M54.42 Lumbago with sciatica, left side; J45.909 Unspecified asthma, uncomplicated; M81.0 Age-related osteoporosis without current pathological fracture; Z87.891 Personal history of nicotine dependence; Z79.82 Long term (current) use of aspirin; Z79.899 Other long term (current) drug therapy; Z88.8 Allergy status to other drugs, medicaments and biological substances; Z88.1 Allergy status to other antibiotic agents; Z91.048 Other nonmedicinal substance allergy status ==

== ENCOUNTER → 2023-03-09 | Outpatient (CLI) | payer OTHER | LOC: M PAIN 10:45 | PROVIDERS: ATTEND Nurse Practitioner Family | DX: M96.1 Postlaminectomy syndrome, not elsewhere classified (principal); G89.29 Other chronic pain; I10 Essential (primary) hypertension; E78.5 Hyperlipidemia, unspecified; M54.50 Low back pain, unspecified; J32.9 Chronic sinusitis, unspecified; J45.909 Unspecified asthma, uncomplicated; M81.0 Age-related osteoporosis without current pathological fracture; Z86.16 Personal history of COVID-19; Z87.891 Personal history of nicotine dependence; Z79.82 Long term (current) use of aspirin; Z79.891 Long term (current) use of opiate analgesic; Z79.899 Other long term (current) drug therapy; Z88.8 Allergy status to other drugs, medicaments and biological substances; Z88.1 Allergy status to other antibiotic agents ==

== ENCOUNTER → 2023-04-21 | Outpatient (CLI) | payer OTHER | LOC: M PAIN 11:30 | PROVIDERS: ATTEND Nurse Practitioner Family | DX: M96.1 Postlaminectomy syndrome, not elsewhere classified (principal); G89.29 Other chronic pain; I10 Essential (primary) hypertension; E78.5 Hyperlipidemia, unspecified; J32.9 Chronic sinusitis, unspecified; J45.909 Unspecified asthma, uncomplicated; M81.0 Age-related osteoporosis without current pathological fracture; Z87.891 Personal history of nicotine dependence; Z79.82 Long term (current) use of aspirin; Z79.891 Long term (current) use of opiate analgesic; Z79.899 Other long term (current) drug therapy; Z88.8 Allergy status to other drugs, medicaments and biological substances; Z88.1 Allergy status to other antibiotic agents ==

== ENCOUNTER → 2023-06-16 | Outpatient (CLI) | payer OTHER | LOC: M PAIN 11:00 | PROVIDERS: ATTEND Nurse Practitioner Family | DX: M96.1 Postlaminectomy syndrome, not elsewhere classified (principal); Z79.891 Long term (current) use of opiate analgesic; I10 Essential (primary) hypertension; E78.5 Hyperlipidemia, unspecified; J32.9 Chronic sinusitis, unspecified; J45.909 Unspecified asthma, uncomplicated; M81.0 Age-related osteoporosis without current pathological fracture; Z86.16 Personal history of COVID-19; Z87.891 Personal history of nicotine dependence; Z79.82 Long term (current) use of aspirin; Z79.899 Other long term (current) drug therapy; Z88.8 Allergy status to other drugs, medicaments and biological substances; Z88.1 Allergy status to other antibiotic agents ==

== ENCOUNTER → 2023-09-01 | Outpatient (CLI) | payer OTHER | LOC: M PAIN 11:00 | PROVIDERS: ATTEND Nurse Practitioner Family | DX: M96.1 Postlaminectomy syndrome, not elsewhere classified (principal); Z79.891 Long term (current) use of opiate analgesic; G89.29 Other chronic pain; I10 Essential (primary) hypertension; E78.5 Hyperlipidemia, unspecified; M54.42 Lumbago with sciatica, left side; J32.9 Chronic sinusitis, unspecified; J45.909 Unspecified asthma, uncomplicated; M81.0 Age-related osteoporosis without current pathological fracture; Z87.891 Personal history of nicotine dependence; Z79.82 Long term (current) use of aspirin; Z79.899 Other long term (current) drug therapy; Z88.1 Allergy status to other antibiotic agents; Z88.8 Allergy status to other drugs, medicaments and biological substances ==

== ENCOUNTER → 2023-11-26 | Outpatient (CLI) | payer MEDICARE | LOC: M RAD 10:20 | PROVIDERS: ATTEND Family Medicine | DX: H35.63 Retinal hemorrhage, bilateral (principal) ==

== ENCOUNTER → 2023-11-30 | Outpatient (CLI) | payer OTHER | LOC: M PAIN 11:00 | PROVIDERS: ATTEND Nurse Practitioner Family | DX: M96.1 Postlaminectomy syndrome, not elsewhere classified (principal); Z79.02 Long term (current) use of antithrombotics/antiplatelets; Z79.82 Long term (current) use of aspirin; Z79.83 Long term (current) use of bisphosphonates; Z87.891 Personal history of nicotine dependence; Z88.1 Allergy status to other antibiotic agents; Z88.8 Allergy status to other drugs, medicaments and biological substances ==

== ENCOUNTER → 2024-03-01 | Outpatient (CLI) | payer OTHER ==
[~2024-03-01] MED LIST changes: +GABA-1490 PO; -GABA600T4 PO
== END ==
LOC: M PAIN 11:00
PROVIDERS: ATTEND Nurse Practitioner Family
DX: M96.1 Postlaminectomy syndrome, not elsewhere classified (principal); Z79.891 Long term (current) use of opiate analgesic; G89.29 Other chronic pain; I10 Essential (primary) hypertension; E78.5 Hyperlipidemia, unspecified; M54.42 Lumbago with sciatica, left side; J32.9 Chronic sinusitis, unspecified; J45.909 Unspecified asthma, uncomplicated; M81.0 Age-related osteoporosis without current pathological fracture; Z87.891 Personal history of nicotine dependence; Z79.82 Long term (current) use of aspirin; Z79.899 Other long term (current) drug therapy; Z88.8 Allergy status to other drugs, medicaments and biological substances; Z88.1 Allergy status to other antibiotic agents; Z91.048 Other nonmedicinal substance allergy status

== ENCOUNTER → 2024-06-02 | Outpatient (CLI) | payer OTHER ==
[~2024-06-02] MED LIST changes: +GABA-1172 PO; -GABA-282 PO
== END ==
LOC: M PAIN 11:00
PROVIDERS: ATTEND Nurse Practitioner Family
DX: M96.1 Postlaminectomy syndrome, not elsewhere classified (principal); G89.29 Other chronic pain; I10 Essential (primary) hypertension; E78.5 Hyperlipidemia, unspecified; J45.909 Unspecified asthma, uncomplicated; M81.0 Age-related osteoporosis without current pathological fracture; K21.9 Gastro-esophageal reflux disease without esophagitis; G43.009 Migraine without aura, not intractable, without status migrainosus; Z87.891 Personal history of nicotine dependence; Z79.82 Long term (current) use of aspirin; Z79.891 Long term (current) use of opiate analgesic; Z79.899 Other long term (current) drug therapy; Z88.1 Allergy status to other antibiotic agents; Z88.8 Allergy status to other drugs, medicaments and biological substances; Z91.048 Other nonmedicinal substance allergy status

== ENCOUNTER → 2024-06-21 | Outpatient (CLI) | payer OTHER | LOC: M PAIN 10:30 | PROVIDERS: ATTEND Nurse Practitioner Family | DX: M96.1 Postlaminectomy syndrome, not elsewhere classified (principal); Z79.891 Long term (current) use of opiate analgesic; G89.29 Other chronic pain; I10 Essential (primary) hypertension; E78.5 Hyperlipidemia, unspecified; M54.50 Low back pain, unspecified; J45.909 Unspecified asthma, uncomplicated; M81.0 Age-related osteoporosis without current pathological fracture; K21.9 Gastro-esophageal reflux disease without esophagitis; Z87.891 Personal history of nicotine dependence; Z79.82 Long term (current) use of aspirin; Z79.899 Other long term (current) drug therapy; Z88.1 Allergy status to other antibiotic agents; Z88.8 Allergy status to other drugs, medicaments and biological substances ==

== ENCOUNTER → 2024-09-06 | Outpatient (CLI) | payer OTHER ==
[~2024-09-06] MED LIST changes: +VANC125C13 PO; -VANC125C3 PO
== END ==
LOC: M PAIN 15:00
PROVIDERS: ATTEND Anesthesiology
DX: M96.1 Postlaminectomy syndrome, not elsewhere classified (principal); M47.816 Spondylosis without myelopathy or radiculopathy, lumbar region; Z79.82 Long term (current) use of aspirin; Z79.899 Other long term (current) drug therapy; Z86.16 Personal history of COVID-19; Z87.891 Personal history of nicotine dependence; Z88.1 Allergy status to other antibiotic agents; Z88.8 Allergy status to other drugs, medicaments and biological substances; Z91.038 Other insect allergy status; Z91.048 Other nonmedicinal substance allergy status